=== PATIENT | female | born 1970 ===

== ENCOUNTER 2020-09-21 10:35 | Outpatient (REF) | payer OTHER, SELFPAY | END 2020-09-21 10:36 | disposition home or self-care (01) | LOC: HO.LAB 10:35 | PROVIDERS: PCP Internal Medicine; Visit Provider Internal Medicine | DX: Z20.828 Contact with and (suspected) exposure to other viral communicable diseases (principal) | CPT/HCPCS: C9803; U0003 ==

== ENCOUNTER 2020-11-01 14:37 | Outpatient (REF) | payer OTHER, SELFPAY ==
[2020-11-01 17:38] LABS: Free T4 (Free Thyroxine) 1.33 ng/dL (0.71-1.85); Thyroid Stimulating Hormone 1.17 uIU/mL (0.32-4.0)
== END 2020-11-01 14:38 | disposition home or self-care (01) ==
LOC: HO.HMGCLDS 14:37
PROVIDERS: PCP Internal Medicine; Visit Provider Internal Medicine Endocrinology, Diabetes & Metabolism
DX: E03.9 Hypothyroidism, unspecified (principal)
CPT/HCPCS: 36415; 84439; 84443

== ENCOUNTER 2020-11-28 13:51 | Outpatient (REF) | payer OTHER, SELFPAY ==
[2020-11-29 01:22] LABS: Lyme Abs Screen <0.90 index
== END 2020-11-28 13:52 | disposition home or self-care (01) ==
LOC: HO.HMGCLDS 13:51
PROVIDERS: Nurse Practitioner Family; PCP Internal Medicine; Visit Provider Hospitalist
DX: S30.861A Insect bite (nonvenomous) of abdominal wall, initial encounter (principal); W57.XXXA Bitten or stung by nonvenomous insect and other nonvenomous arthropods, initial encounter; Y93.9 Activity, unspecified; Y92.9 Unspecified place or not applicable; Y99.9 Unspecified external cause status
CPT/HCPCS: 36415; 86618

== ENCOUNTER → 2021-01-19 16:13 | Outpatient (BNVA) | payer OTHER, SELFPAY | PROVIDERS: PCP Internal Medicine; Visit Provider Nurse Practitioner ==

== ENCOUNTER 2021-03-22 07:51 | Outpatient (REF) | payer OTHER, SELFPAY ==
--- NOTE | ~2021-03-22 | US_ITS ---
EXAMINATION: US COMPLETE ABDOMEN WITH LIVER ELASTOGRAPHY CLINICAL INFORMATION: Abnormal blood chemistry. COMPARISON: CT abdomen and pelvis with contrast 02/20/2016. TECHNIQUE: Real-time imaging of the abdominal viscera. Noninvasive ultrasound liver fibrosis assessment is performed using Olivier ElastPQ point quantification shear wave elastography (pSWE) with a C5-2 MHz transducer. Multiple elastography samples are obtained. FINDINGS: PANCREAS: Normal. The visualized pancreatic head and body are normal in appearance. The remainder of the pancreas is obscured from visualization by the overlying bowel gas. ABDOMINAL AORTA: The proximal, middle, and distal aortic segments are normal in caliber. INFERIOR VENA CAVA: Visualized portions are normal. LIVER: The liver demonstrates normal size, contour and echogenicity. There is diffuse increased echogenicity of the liver. There are multiple hypodense liver cysts. The largest cyst in left hepatic lobe with septations measures 1. 4.1 x 2.0 x 3.7 cm. There is no hemangioma seen on today's ultrasound. The right lobe measures 1.54 cm in length. The left lobe measures 0.08 cm in length. Portal flow is hepatopedal. Shear wave liver elastography median stiffness is 1.5 m/s (reference: normal median stiffness is 1.3 m/s or less). IQR/median stiffness to assess sampling precision is 0.08 (reference: good quality data set is IQR/median stiffness of 0.15 or less). GALLBLADDER: Gallbladder wall thickness is 0.1 cm. The gallbladder is physiologically distended without evidence of stones, sludge, polyps, wall thickening or pericholecystic fluid. COMMON BILE DUCT: Normal in caliber measuring 0.3 cm in diameter. RIGHT KIDNEY: There is mild pelvic fullness but no hydronephrosis seen. No renal calculi or focal parenchymal lesions. The kidney measures 10.4 cm in maximum dimension. LEFT KIDNEY: Normal. No hydronephrosis. No renal calculi or focal parenchymal lesions. The kidney measures 11.3 cm in maximum dimension. SPLEEN: Normal. The spleen measures 10.0 cm in maximum dimension. FREE FLUID: None. US/US abdomen comp w elastography IMPRESSION: 1. Diffuse hepatic steatosis. There are multiple anechoic cysts. The largest cyst in the left hepatic lobe has septations and is complex. No solid lesion or hemangioma seen. Mild pelvic fullness right kidney but no hydronephrosis or echogenic renal calculi in either kidney. 2. Liver elastography: 1.54. Findings suggestive of cACLD ruled out. REFERENCE: Society of Radiologists in Ultrasound Liver Stiffness Thresholds (2020): LIVER STIFFNESS THRESHOLDS: *Liver Stiffness equal or less than 1.3 m/s: High probability of being normal. *Liver Stiffness less than 1.7 m/s: In the absence of other known clinical signs, rules out compensated advanced chronic liver disease. *Liver Stiffness 1.7-2.1 m/s: Suggestive of compensated advanced chronic liver disease but need further test for confirmation. *Liver Stiffness over 2.1 m/s: Rules in compensated advanced chronic liver disease. *Liver Stiffness over 2.4 m/s: Suggestive of clinically significant portal hypertension. QUALITY OF DATA SET: *IQR/Median value equal or less than 0.15 implies a quality data set. *IQR/Median value over 0.15 implies a poor quality data set. SIGNIFICANT CHANGE FROM PRIOR EXAM: Significant change if liver stiffness measurement is 10% or greater from prior exam. OTHER CONSIDERATIONS: The stage of liver fibrosis may be overestimated in the setting of acute hepatitis, liver inflammation, elevated liver function tests, hepatic vascular congestion, obstructive cholestasis, non-fasting state, and infiltrative diseases such as amyloidosis and lymphoma. In some patients with NAFLD, the liver stiffness thresholds for compensated advanced chronic liver disease may be lower. In causes other than viral hepatitis and NAFLD, liver stiffness thresholds are not well established.
[2021-03-22 08:48] LABS: MANUAL DIFF FLAG NO
[2021-03-22 08:55] LABS: Eosinophils Absolute Auto 0.1 X10*3/uL (0.0-0.4); Eosinophils Percent Auto 2.6 % (0-4); Hematocrit 39.6 % (37-47); Hemoglobin 13.6 g/dl (12.0-16.0); Imm Gran Abs Auto 0.02 X10*3/uL (0.00-0.03); Imm Gran Pct Auto 0.4 % (0.0-0.4); Lymphocytes Absolute Auto 1.4 X10*3/uL (1.2-4.9); Lymphocytes Percent Auto 28.1 % (20-40); Mean Corpuscular HGB Conc 34.3 g/dl (31.0-35.0); Mean Corpuscular Hemoglobin 30.7 pg (27.0-33.0); Mean Corpuscular Volume 89.4 fL (80-98); Mean Platelet Volume 10.7 fL (9.4-12.3); Monocytes Absolute Auto 0.3 X10*3/uL (0.1-1.2); Monocytes Percent Auto 6.8 % (2-11); Neutrophils Absolute Auto 3.1 X10*3/uL (2.0-8.3); Neutrophils Percent Auto 62.1 % (45-73); Platelet Count 228 X10*3/uL (160-400); Red Blood Count 4.43 X10*6/uL (4.20-5.50); Red Cell Distribution Width 11.6 % (11.0-16.0)
[2021-03-22 09:33] LABS: Alanine Aminotransferase 26 U/L (0-31); Albumin Level 4.4 g/dL (3.5-5.0); Alkaline Phosphatase 89 U/L (39-117); Anion Gap 9 (12-20); Aspartate Amino Transferase 27 U/L (5-31); Bilirubin Direct 0.3 mg/dL (0.0-0.5); Bilirubin Total 0.8 mg/dL (0.0-1.0); Blood Urea Nitrogen 10 mg/dL (9-16); Calcium 10.1 mg/dL (8.4-10.2); Carbon Dioxide 30 mmol/L (22-29); Chloride 104 mmol/L (96-108); Estimated Glomerular Filt Rate > 60; Gamma Glutamyl Transpeptidase 23 U/L (7-33); Glucose Random 92 mg/dL (60-115); Potassium 4.4 mmol/L (3.3-5.1); Sodium 139 mmol/L (135-145); Total Protein 7.4 g/dL (6.5-8.0)
[2021-03-22 09:46] LABS: HBS Num1 0.21 mIU/mL (0-7.99); HIV AB/AG Nonreactive (Nonreactive); HIV Num 1 0.07 S/CO (0.00-0.99); Hepatitis A Antibody IgM 0.32 Index (0-0.79); ~Hepatitis A Antibody IgM Nonreactive (Nonreactive); ~Hepatitis B Surface Antibody NONREACTIVE (Nonreactive)
[2021-03-22 09:48] LABS: Ferritin 110 ng/mL (10-250)
[2021-03-22 10:29] LABS: HBc Num1 0.07 S/CO (0.00-0.79); HBsAGNum1 0.19 S/CO (0.00-0.99); Hepatitis B Core Antibody Nonreactive (Nonreactive); Hepatitis B Surface Antigen Negative (Negative); ~HepC Num1 0.08 S/CO (0.00-0.79); ~Hepatitis C Antibody Nonreactive (Nonreactive)
[2021-03-23 11:57] LABS: Alpha Fetoprotein 1.7 ng/mL
[2021-03-26 23:46] LABS: Anti Nuclear Antibody Screen NEGATIVE (NEGATIVE)
[2021-03-27 15:52] LABS: Mitochondrial Antibodies NEGATIVE (NEGATIVE)
[2021-03-27 22:22] LABS: Smooth Muscle Antibody 20 U (<20)
== END 2021-03-22 07:52 | disposition home or self-care (01) ==
LOC: HO.US 07:51
PROVIDERS: Visit Provider Nurse Practitioner
DX: K75.81 Nonalcoholic steatohepatitis (NASH) (principal); R79.89 Other specified abnormal findings of blood chemistry; K58.9 Irritable bowel syndrome, unspecified; K21.9 Gastro-esophageal reflux disease without esophagitis
CPT/HCPCS: 36415; 76705; 76981; 80053; 82105; 82248; 82728; 82977; 85025; 86038; 86039; 86255; 86256; 86704; 86706; 86709; 86803; 87340; 87389

== ENCOUNTER 2021-05-02 16:52 | Outpatient (REF) | payer OTHER, SELFPAY ==
[2021-05-02 18:42] LABS: Free T4 (Free Thyroxine) 1.33 ng/dL (0.71-1.85); Thyroid Stimulating Hormone 0.91 uIU/mL (0.32-4.0)
== END 2021-05-02 16:53 | disposition home or self-care (01) ==
LOC: HO.LAB 16:52
PROVIDERS: PCP Internal Medicine; Visit Provider Internal Medicine Endocrinology, Diabetes & Metabolism
DX: E03.9 Hypothyroidism, unspecified (principal)
CPT/HCPCS: 36415; 84439; 84443

== ENCOUNTER → 2021-05-03 10:17 | Outpatient (BNVA) | payer OTHER, SELFPAY | PROVIDERS: PCP Internal Medicine; Visit Provider Internal Medicine Endocrinology, Diabetes & Metabolism ==

== ENCOUNTER → 2021-05-09 13:50 | Outpatient (BNVA) | payer OTHER, SELFPAY | PROVIDERS: PCP Internal Medicine; Visit Provider Nurse Practitioner ==

== ENCOUNTER 2021-09-23 10:44 | Outpatient (REF) | payer OTHER, SELFPAY ==
[2021-09-23 12:17] LABS: Free T4 (Free Thyroxine) 1.11 ng/dL (0.71-1.85); Thyroid Stimulating Hormone 1.09 uIU/mL (0.32-4.0)
[2021-09-24 07:27] LABS: Triiodothyronine T3 Free 3.1 pg/mL (2.3-4.2)
== END 2021-09-23 10:45 | disposition home or self-care (01) ==
LOC: HO.LAB 10:44
PROVIDERS: PCP Internal Medicine; Visit Provider Family Medicine
DX: E03.8 Other specified hypothyroidism (principal)
CPT/HCPCS: 36415; 84439; 84443; 84481

== ENCOUNTER 2021-11-25 10:49 | Outpatient (REF) | payer OTHER, SELFPAY ==
[2021-11-25 11:53] LABS: Alanine Aminotransferase 17 U/L (0-31); Aspartate Amino Transferase 22 U/L (5-31); Cholesterol 186 mg/dL; HDL Cholesterol 69 mg/dL; LDL Cholesterol Calculated 109 mg/dl; Triglycerides 42 mg/dL
[2021-11-25 12:15] LABS: Vitamin D 25-OH Total 28.8 ng/mL (>30)
[2021-11-27 01:07] LABS: LDL Cholesterol Direct 99 mg/dL (<100)
== END 2021-11-25 10:50 | disposition home or self-care (01) ==
LOC: HO.LAB 10:49
PROVIDERS: PCP Internal Medicine; Visit Provider Family Medicine
DX: K76.0 Fatty (change of) liver, not elsewhere classified (principal); E03.9 Hypothyroidism, unspecified; N95.1 Menopausal and female climacteric states
CPT/HCPCS: 36415; 80061; 82306; 83721; 84450; 84460; 86141

== ENCOUNTER 2022-03-02 07:09 | Outpatient (REF) | payer OTHER, SELFPAY ==
[2022-03-02 08:06] LABS: Alanine Aminotransferase 18 U/L (0-31); Albumin Level 4.5 g/dL (3.5-5.0); Alkaline Phosphatase 110 U/L (39-117); Anion Gap 10 (12-20); Aspartate Amino Transferase 19 U/L (5-31); Bilirubin Total 1.5 mg/dL (0.0-1.0); Blood Urea Nitrogen 17 mg/dL (9-16); Calcium 10.3 mg/dL (8.4-10.2); Carbon Dioxide 30 mmol/L (22-29); Chloride 104 mmol/L (96-108); Cholesterol 206 mg/dL; Estimated Glomerular Filt Rate > 60; Glucose Random 96 mg/dL (60-115); HDL Cholesterol 76 mg/dL; LDL Cholesterol Calculated 115 mg/dl; Potassium 4.6 mmol/L (3.3-5.1); Sodium 139 mmol/L (135-145); Total Protein 7.6 g/dL (6.5-8.0); Triglycerides 78 mg/dL
[2022-03-03 14:46] LABS: CRP High Sensitivity 1.3 mg/L
== END 2022-03-02 07:10 | disposition home or self-care (01) ==
LOC: HO.LAB 07:09
PROVIDERS: PCP Internal Medicine; Visit Provider Family Medicine
DX: K76.0 Fatty (change of) liver, not elsewhere classified (principal)
CPT/HCPCS: 36415; 80053; 80061; 86141

== ENCOUNTER 2022-09-19 07:59 | Outpatient (REF) | payer OTHER, SELFPAY ==
[2022-09-19 12:48] LABS: Alanine Aminotransferase 20 U/L (0-31); Albumin Level 4.4 g/dL (3.5-5.0); Alkaline Phosphatase 98 U/L (39-117); Aspartate Amino Transferase 20 U/L (5-31); Bilirubin Direct 0.4 mg/dL (0.0-0.5); Bilirubin Total 1.1 mg/dL (0.0-1.0); Free T4 (Free Thyroxine) 1.15 ng/dL (0.71-1.85); Glucose Fasting 84 mg/dL (60-99); Thyroid Stimulating Hormone 1.19 uIU/mL (0.32-4.0); Total Protein 6.9 g/dL (6.5-8.0); Vitamin D 25-OH Total 28.3 ng/mL (>30)
[2022-09-20 09:43] LABS: Thyroid Peroxidase Antibodies 1 IU/mL (<9)
== END 2022-09-19 08:00 | disposition home or self-care (01) ==
LOC: HO.HMGCLDS 07:59
PROVIDERS: PCP Internal Medicine; Visit Provider Internal Medicine
DX: Z00.01 Encounter for general adult medical examination with abnormal findings (principal); E03.9 Hypothyroidism, unspecified; G47.00 Insomnia, unspecified; K58.2 Mixed irritable bowel syndrome; K75.81 Nonalcoholic steatohepatitis (NASH); N95.1 Menopausal and female climacteric states; R10.11 Right upper quadrant pain
CPT/HCPCS: 36415; 80076; 82306; 82947; 84439; 84443; 86376

== ENCOUNTER 2023-07-05 12:47 | Outpatient (AMB) | payer OTHER, SELFPAY ==
--- NOTE | 2023-07-05 12:53 | A.OFFPC_ITS ---
Vital Signs 07/05/23 12:57 Height 5 ft 1 in Weight 143 lb BMI 27.0 BP 130/70 Blood Pressure Location Rt brachial Position Sitting Pulse 71 Pulse Source Pulse Oximeter Pulse Oximetry (%) 99 Oxygen Delivery Method Room Air Intake Visit Reasons: Liver/Thyroid F/U Intake Note: patient is here to discuss liver/thyroid f/u and pt c/o lower abdominal pain Allergies No Known Allergies Allergy (Verified 02/14/24 09:31) Medication List - Last Reconciled 07/05/23 by Jahaira Cabrera MD azelaic acid 15% 1 appl topical BID doxycycline monohydrate 0 mg PO Levoxyl (levothyroxine) 100 mcg PO DAILY 90 days NS lifitegrast 5% (Xiidra) 1 drp ophthalmic (eye) BID lorazepam 0.5 mg PO DAILY PRN zolpidem 10 mg PO BEDTIME PRN Tobacco use date assessed: 07/05/23 Dental Screening Dental Screen Date: 07/05/23 Did you have a dental visit in the last 12 months?: Yes Did you have a dental problem in the last 6 months where you did not have access to dental care?: No Was dental information given to patient?: Patient has dentist HPI Liver/Thyroid F/U HPI Details 54-year-old lady with history acquired h ypothyroidism currently on levothyroxine, here today for follow-up. She has been having intermittent episodes of right upper quadrant pain. No relation to food intake, no radiation, no accompanying fever, no nausea vomiting, no change in bowel habits reported. She also has been having intermittent episodes of difficulty sleeping and maintaining her sleep at night. Has tried debe-pda-lvwammk sleep aids which has not afforded any relief PFSH Medical History (Updated 05/12/24 @ 02:03 by Jahaira Cabrera MD) Right upper quadrant abdominal pain COVID-19 vaccination declined Refused influenza vaccine Annual visit for general adult medical examination with abnormal findings H. 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 [id number] - PHQ-9 Billing: Patient declined-do not bill Source: Developed by Drs. Harvey Ortiz, Viviana Samaniego, Conrad Mccartney and colleagues, with an educational kit from [employer]. Thrive Questionnaire Date Thrive assessed: 09/12/22 I am a: Patient What is your living situation today?: I have a steady place to live Within the past 12 months, did the food you bought not last and you didn't have the money to get more?: Never true Within the past 12 months, did you worry whether your food would run out before you got money to buy more?: Sometimes True Do you have trouble paying for medicines?: No Do you have trouble getting transportation to medical appointments?: No Do you have trouble paying your heating and electricity bill?: No Do you have trouble taking care of your child, family member or friend?: No Do you have trouble with day-to-day activities such as bathing, preparing meals, shopping, managing finances, etc.?: No Are you currently unemployed and looking for a job?: No Are you interested in more education?: No Please select the resources that you would like help with: Education AUDIT C Alcohol Use Questionnaire (AUDIT-C) 1. How often do you have a drink containing alcohol?: 2-3 times a week 2. How many drinks containing alcohol do you have on a typical day when you are drinking?: 1 or 2 3. How often do you have six or more drinks on one occasion?: Less than monthly Total Score: 4 JAKE-7 AMB Questionnaire JAKE-7 Date JAKE - 7 assessed: 07/05/23 Feeling nervous, anxious, or on edge: 3 = Nearly every day Not being able to stop or control worryin = Nearly every day Worrying too much about different things: 3 = Nearly every day Trouble relaxin = Nearly every day Being so restless that it is hard to sit still: 1 = Several days Becoming easily annoyed or irritable: 3 = Nearly every day Feeling afraid as if something awful might happen: 3 = Nearly every day Total JAKE-7 score (0-4 normal; 5-9 mild; 10-14 moderate; 15-21 severe): 19 Source: Developed by Drs. Harvey Ortiz, Viviana Samaniego, Conrad Mccartney and colleagues, with an educational kit from [employer]. JAKE-7 Assessment Billing JAKE-7 Assessment Tool: JAKE-7 Assessment 21400 (Sees a therapist, awaiting referral for psychiatry) Review of Systems Const Denies body aches, Denies fatigue, Denies fever(s), Denies headache(s) and Denies weakness ENT Denies dizziness and Denies headache(s) Card Denies chest pain, Denies lightheadedness, Denies palpitations and Denies dyspnea Resp Denies chest congestion, Denies cough and Denies dyspnea GI Reports as per HPI Denies urinary frequency, Denies dysuria and Denies urinary urgency Musc Reports no additional complaints Neuro Denies dizziness, Denies headache(s) and Denies weakness Endo Denies fatigue, Denies polydipsia, Denies polyuria and Denies palpitations Physical exam (Primary Care) Vital Signs: Last Vital Signs Pulse 71 07/05/23 12:57 BP 130/70 07/05/23 12:57 Pulse Ox 99 07/05/23 12:57 Oxygen Delivery Method Room Air 07/05/23 12:57 BMI result Body Mass Index 27.0 Tobacco/Smoking Status: Tobacco use Status Tobacco use date assessed 07/05/23 07/05/23 13:12 Patient Tobacco Use Status Never used Tobacco 07/05/23 12:53 e-Cigarette/Vaping Use Never Used 07/05/23 12:53 Thrive Assessment: Date of Thrive Assessment Date Thrive assessed 09/12/22 07/05/23 12:53 Const Other: Alert oriented x3, no acute cardiorespiratory distress, ambulatory with normal gait Nutritional Appearance: average body habitus Orientation/consciousness: patient oriented x3 HENMT Face and sinus: Yes face symmetric Mouth: Normal oral and palatal mucosa present and moist mucous membranes Eyes General: appearance normal, both eyes and all related structures Neck Neck: Yes full ROM, Yes no lymphadenopathy, Yes supple and Yes no JVD Resp Auscultation: clear to auscultation bilaterally Cardio Palpation: normal PMI Rate: regular rate Rhythm: regular rhythm Heart sounds: S1 normal heart sound present and S2 normal heart sound present GI Palpation (GI): Soft to palpation, nontender, no guarding and no masses Auscultation: normal bowel sounds Other: Goes to her own OBGYN Dr. Dixie Grant, who also orders her mammogram and does her cervical cancer screening General: Yes no CVA tenderness Back/Spine/Pelvis Back: no CVA tenderness and No back tenderness Neuro General: patient oriented x3, gait normal and no focal motor deficits Extrem General: Yes normal to inspection, Yes full ROM, Yes no joint enlargement, Yes no pedal edema, Yes no calf tenderness and Yes normal gait Assessment and Plan Assessment & Plan (1) Right upper quadrant abdominal pain: Code(s): R10.11 - Right upper quadrant pain Plan: Ultrasound of abdomen, ordered as well as liver function tests (2) Insomnia: Code(s): G47.00 - Insomnia, unspecified Qualifiers: Insomnia type: unspecified Qualified Code(s): G47.00 - Insomnia, unspecified Plan: Prescription sent for zolpidem, to try taking initially 5 mg or half a tablet at bedtime as needed for insomnia and may increase dose to a whole tablet or 10 mg if needed. Patient advised to take it only as needed, as it can be habit- forming (3) Acquired hypothyroidism: Code(s): E03.9 - Hypothyroidism, unspecified Plan: TSH and free T4 ordered will continue on levothyroxine at 100 mcg daily in a.m. an hour before breakfast Orders: Orders Free T4 (Free Thyroxine) 3 Months E03.9 - Hypothyroidism, unspecified, R10.11 - Right upper quadrant pain, R79.89 - Other specified abnormal findings of blood chemistry, K76.89 - Other specified diseases of liver, K75.81 - Nonalcoholic steatohepatitis (CARR) Lipid Panel 07/05/23 R10.11 - Right upper quadrant pain, R79.89 - Other specified abnormal findings of blood chemistry, K75.81 - Nonalcoholic steatohepatitis (CARR) Thyroid Stimulating Hormone 07/05/23 R10.11 - Right upper quadrant pain, R79.89 - Other specified abnormal findings of blood chemistry, K76.89 - Other specified diseases of liver, K75.81 - Nonalcoholic steatohepatitis (CARR) US abdomen complete 07/05/23 R10.11 - Right upper quadrant pain, R79.89 - Other specified abnormal findings of blood chemistry, K76.89 - Other specified diseases of liver, K75.81 - Nonalcoholic steatohepatitis (CARR) Liver Panel 07/05/23 R10.11 - Right upper quadrant pain, R79.89 - Other specified abnormal findings of blood chemistry, K75.81 - Nonalcoholic steatohepatitis (CARR) Medications: Refilled zolpidem Try taking initially half a tablet or 5 mg at bedtime , as needed for insomnia 10 mg PO BEDTIME PRN 30 tabs 0RF sleep G47.00 - Insomnia, unspecified Coding Level of Care Code Est Pt Level 4 (09447) Diagnoses Right upper quadrant abdominal pain R10.11 Insomnia, unspecified type G47.00 Insomnia type: unspecified Acquired hypothyroidism E03.9 Additional Codes JAKE-7 Assessment Billing - JAKE-7 Assessment Tool: JAKE-7 Assessment 10962 ([id number])
[2023-07-05 12:57] VITALS: BP 130/70; PULSE 71; O2SAT 99; BMI 27.0
== END 2023-07-05 15:40 | disposition home or self-care (01) ==
PROVIDERS: PCP Internal Medicine; Visit Provider Internal Medicine
DX: R10.11 Right upper quadrant pain (principal); G47.00 Insomnia, unspecified; E03.9 Hypothyroidism, unspecified
CPT/HCPCS: 99499

== ENCOUNTER 2023-07-15 08:02 | Outpatient (REF) | payer OTHER, SELFPAY ==
[2023-07-15 12:35] LABS: Alanine Aminotransferase 30 U/L (0-31); Albumin Level 4.4 g/dL (3.5-5.0); Alkaline Phosphatase 94 U/L (39-117); Aspartate Amino Transferase 28 U/L (5-31); Bilirubin Direct 0.4 mg/dL (0.0-0.5); Bilirubin Total 1.2 mg/dL (0.0-1.0); Cholesterol 177 mg/dL (<200); HDL Cholesterol 64 mg/dL (>40); LDL Cholesterol Calculated 99 mg/dL (<100); Thyroid Stimulating Hormone 2.15 uIU/mL (0.32-4.0); Total Protein 7.4 g/dL (6.5-8.0); Triglycerides 70 mg/dL (<150)
== END 2023-07-15 08:03 | disposition home or self-care (01) ==
LOC: HO.HMGCLDS 08:02
PROVIDERS: PCP Internal Medicine; Visit Provider Internal Medicine
DX: R10.11 Right upper quadrant pain (principal); K75.81 Nonalcoholic steatohepatitis (NASH); K76.89 Other specified diseases of liver; R79.89 Other specified abnormal findings of blood chemistry
CPT/HCPCS: 36415; 80061; 80076; 84443

== ENCOUNTER 2023-07-24 10:13 | Outpatient (REF) | payer OTHER, SELFPAY ==
--- NOTE | ~2023-07-24 | US_ITS ---
EXAMINATION: US ABDOMEN COMPLETE CLINICAL INFORMATION: Right upper quadrant pain. COMPARISON: Ultrasound abdomen complete with elastography 03/22/2021. CT abdomen and pelvis 02/20/2016. X-ray abdomen 06/20/2014. TECHNIQUE: Real-time imaging of the abdominal viscera. FINDINGS: PANCREAS: Normal. ABDOMINAL AORTA: The proximal, mid, and distal segments are normal in caliber. INFERIOR VENA CAVA: Visualized portions are normal. LIVER: Liver is enlarged with multiple hepatic cysts and increased echogenicity the largest cyst in the left lobe measured 4.5 x 2.4 x 4.8 cm. The liver contour is normal. There is no intrahepatic biliary duct dilatation seen. GALLBLADDER: Gallbladder is contracted COMMON BILE DUCT: Normal in caliber measuring 0.4 cm in diameter. RIGHT KIDNEY: Normal. No hydronephrosis. No renal calculi or focal parenchymal lesions. The kidney measures 10.5 cm in maximum dimension. LEFT KIDNEY: Normal. No hydronephrosis. No renal calculi or focal parenchymal lesions. The kidney measures 11.0 cm in maximum dimension. SPLEEN: Normal. The spleen measures 9.9 cm in maximum dimension. There is 1.0 x 1.0 x 1.1 cm splenule seen FREE FLUID: None. US/US abdomen complete IMPRESSION: Echogenic liver with multiple simple cysts. Contracted gallbladder patient was not fasting.
== END 2023-07-24 10:14 | disposition home or self-care (01) ==
LOC: HO.HMGCX 10:13
PROVIDERS: PCP Internal Medicine; Visit Provider Internal Medicine
DX: R10.11 Right upper quadrant pain (principal); R79.89 Other specified abnormal findings of blood chemistry; K76.89 Other specified diseases of liver
CPT/HCPCS: 76700

== ENCOUNTER 2023-11-22 12:19 | Outpatient (AMB) | payer OTHER, SELFPAY ==
--- NOTE | 2023-11-22 12:28 | A.OFFVIS_ITS ---
Intake Vital Signs 11/22/23 12:29 Height 5 ft 1 in Weight 145 lb BMI 27.4 BP 120/73 Blood Pressure Location Lt brachial Position Sitting Pulse 81 Intake Visit Reasons: Follow up GERD Intake Note: Patient follow up for GERD and US results Patient cc: abdominal pain with bloating and discomfort, constipation, some swallowing problems. 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 Accompanied by: Self / Same As Patient Allergies No Known Allergies Allergy (Verified 11/22/23 12:28) HPI Follow up GERD HPI Details Assessment & Plan (1) CARR (nonalcoholic steatohepatitis): ?Comment: Laboratory Tests ?03/22/2106/06/2106 ?[id number] Plt Count 228 Estimated GFR > 60 Ferritin 110 Total Bilirubin 0.8 Direct Bilirubin 0.3 GGT 23 AST 27 ALT 26 Alkaline Phosphatase 89 Alpha Fetoprotein 1.7 FITO Screen NEGATIVE Anti-Mitochondrial Ab NEGATIVE Anti-Smooth Muscle Ab 20 H Hepatitis A IgM Ab Nonreactive Hep Bs Antigen Negative Hep Bs Antibody NONREACTIVE Hep B Core Total Ab Nonreactive Hepatitis C Ab (EIA) Nonreactive HIV 1&2 Ab/P24 Ag 4thGn Nonreactive TSH 0.91 Free T4 1.3 ULTRASOUND OF THE ABDOMEN ELASTOGRAPHY 03/2021 IMPRESSION: 1. Diffuse hepatic steatosis. There are multiple anechoic cysts. The largest cyst in the left hepatic lobe has septations and is complex. No solid lesion or hemangioma seen. ? Mild pelvic fullness right kidney but no hydronephrosis or echogenic renal calculi in either kidney. ? 2. Liver elastography: 1.54. Findings cuevas ggestive of cACLD ruled out. ? Dictated By:EARL LAM MDSigned By:<Electronically signed by EARL LAM MD in OV>03/22/21 ?Code(s): K75.81 - Nonalcoholic steatohepatitis (CARR) ?Plan - SAEED Gabriel-C: wt 136# 5'1 BMI 25.7 I reviewed all of the results from the testing and ultrasound inform her that it appears that this is CARR or fatty liver.? I explained that this is an inherited condition and the only real treatment is slow weight loss weight control, avoidance of toxins particularly alcohol and blood sugar control if your diabetic.? She says she is currently not diabetic. She does drink 1 glass of red wine a night.? I counseled her to try to cut this back to 2 or 3 times a week since it is well-known that does with regular alcohol consumption and fatty liver have a greater chance of progressing to liver disease than those done.? I also a.m. trying to cushion the fact that she may be under reporting as most people do with the alcohol intake.? She does understand. She expresses a lot of worries as her father of cirrhosis she also watch friend of cirrhosis.? Both of them drank alcohol so this is a good case end point.? She asks whether she can take any mzng-ins-zxpwgvg medications like vitamins to treat this and I discussed the role of vitamin-E but say I have mixed use on this as it is a fat soluble vitamin that can cause toxicity in high doses and the clinical studies of its efficacy are very unclear.? There may be role for something like milk thistle or DANIEL-E, as this has proved proved benefits to the liver.? She should check with me however before beginning any herbal supplement as there are some dinner out right harmful to the liver such as Kava. She she understands and is able to repeat verbalize well.? I tried to reassure her that she does not have a lot of damage to her liver and if she follows the s imple recommendations she really should be fine.? We will monitor her at 6 month intervals to be sure there is no concerning progression. RO the 6 months (2) Elevated LFTs: ?Code(s): R79.89 - Other specified abnormal findings of blood chemistry US OF THE ABDOMEN 07/25/23 FINDINGS: PANCREAS: Normal. ABDOMINAL AORTA: The proximal, mid, and distal segments are normal in caliber. INFERIOR VENA CAVA: Visualized portions are normal. LIVER: Liver is enlarged with multiple hepatic cysts and increased echogenicity the largest cyst in the left lobe measured 4.5 x 2.4 x 4.8 cm. The liver contour is normal. There is no intrahepatic biliary duct dilatation seen. GALLBLADDER: Gallbladder is contracted COMMON BILE DUCT: Normal in caliber measuring 0.4 cm in diameter. RIGHT KIDNEY: Normal. No hydronephrosis. No renal calculi or focal parenchymal lesions. The kidney measures 10.5 cm in maximum dimension. LEFT KIDNEY: Normal. No hydronephrosis. No renal calculi or focal parenchymal lesions. The kidney measures 11.0 cm in maximum dimension. SPLEEN: Normal. The spleen measures 9.9 cm in maximum dimension. There is 1.0 x 1.0 x 1.1 cm splenule seen FREE FLUID: None. US/US abdomen complete IMPRESSION: Echogenic liver with multiple simple cysts. Contracted gallbladder patient was not fasting. Laboratory Tests 07/15/23 08:07 Total Bilirubin 1.2 H Direct Bilirubin 0.4 AST 28 ALT 30 Alkaline Phosphata se 94 TSH 2.15 TODAY'S VISIT She is currently not taking any GI medications. She has been lost to follow up since 2020. She has been having diarrhea alt with CIC, whens he has diarrhea she will have fecal urgency and incontinence. She is fearful to travel. YET she says that she has more CIC and will have to take dulcolax. When she has the bad constipation cycle she will then try to get more fiber in her diet and will water and then she will start going more frequently; however this will perpetuate her into her cycle of severe diarrhea as above. She will also take N-acetylcysteine, lemon balm, Vit D and probiotics. Specifically, she has not taking any magnesium supplements. She does not feel that is Dulcolax puts her into a diarrheal phase as she will it will clean her out and then she will be normal for awhile before the diarrheal phase onsets. Her mother suffers from diarrhea as well and gastritis. Will also start her back on a trial of Creon to see if this is helpful. She needs hemorrhoid cream as these have been bad. Will restart creon, get labs and fecal studies, and consider balloon expulsion study as she feels there is something wrong with her rectal muscles. [facility] Medical History (Updated 07/05/23 @ 13:59 by Jahaira Cabrera MD) Benign liver cyst Urinary incontinence Anxiety COVID-19 vaccination declined Refused influenza vaccine Right upper quadrant abdominal pain Annual visit for general adult medical examination with abnormal findings Acne rosacea Acquired hypothyroidism Insomnia Surgical History Hernia History of breast augmentation History of tubal ligation Family History Father Liver cancer Mother HTN (hypertension) Diabetes mellitus Social History Housing: House Alcohol intake: current Alcohol intake frequency: 0-2 drinks per day Alcohol type: wine Patient Tobacco Use Status: Never used Tobacco e-Cigarette/Vaping Use: Never Used Second Hand Smoke Exposure: No service: No Current occupational status: employed 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 Cognitive needs: No Hearing needs: No Vision needs: Yes Review of Systems Const Denies fatigue, Denies fever(s), Denies night sweats, Denies poor appetite and Denies weight loss ENT Reports Normal hearing present, Denies dental pain, Denies dysphagia, Denies hearing loss, Denies mouth pain, Denies odynophagia, Denies throat swelling, Denies tongue swelling and Reports other (Dentition adequate) Card Reports no additional complaints Resp Reports no additional complaints GI Details: Denies abdominal pain, Denies melena, Reports bloating, Reports hematochezia, Reports constipation, Denies GI cramping, Denies dysphagia, Denies excessive flatus, Denies early satiety, Reports heartburn, Reports diarrhea, Denies nausea, Denies odynophagia, Denies vomiting and Denies hematemesis Skin/Breast Denies pruritus, Denies lesions, Denies rash and Denies jaundice Neuro Reports Normal hearing present and Denies Abnormal speech present Endo Denies fatigue Aller/Immun Denies throat swelling and Denies tongue swelling Physical Exam Vital Signs: Last Vital Signs Pulse 81 11/22/23 12:29 BP 120/73 11/22/23 12:29 BMI result Body Mass Index 27.4 Const General: cooperative, no acute distress, well developed and well groomed Nutritional Appearance: average body habitus and well nourished Orientation/consciousness: oriented to person, oriented to place and oriented to time Limitations: No language barrier HEENT Head: Yes normocephalic and Yes atraumatic Eyes General: appearance normal, both eyes and all related structures Pupils: Equal, round and reactive pupils present Neck Neck: Yes normal visual inspection and Yes no lymphadenopathy Thyroid: Thyroid normal Resp Effort & Inspection: normal respiratory effort and able to speak in complete sentences Auscultation: clear to auscultation bilaterally Cardio Rate: regular rate Rhythm: regular rhythm Heart sounds: Normal, physiologic split S2 sound present Peripheral pulses: radial pulses present and posterior tibial pulses present GI Inspection: No distended and No Abdominal panniculus present Palpation (GI): Soft to palpation, nontender, no guarding, not rigid and No hepatosplenomegaly present Percussion: Yes normal to percussion Auscultation: normal bowel sounds Rectal Exam - Female: deferred Skin General skin exam: no rashes or lesions noted, turgor normal, skin not dry, no jaundice, No spider nevi and no striae Rashes: no rashes Nails: normal Neuro General: oriented to person, oriented to place and oriented to time Cranial nerves: Yes Equal, round and reactive pupils present and Yes Normal hearing present Speech: No Abnormal speech present Extrem General: Yes normal to inspection, No clubbing, No cyanosis and No edema Psych Appearance: grossly normal and well kempt Mental Status: mental status grossly normal Speech and movement: Normal speech and movement present Affect: normal affect Attitude: cooperative Thought process: Normal thought process present and not confabulating Thought content: Normal thought content present Insight: Limited insight present (Psych) Judgement: Limited judgement present (Psych) Assessment & Plan Assessment & Plan (1) CARR (nonalcoholic steatohepatitis): Comment: Laboratory Tests 03/22/2106/06/2106 [id number] Plt Count 228 Estimated GFR > 60 Ferritin 110 Total Bilirubin 0.8 Direct Bilirubin 0.3 GGT 23 AST 27 ALT 26 Alkaline Phosphatase 89 Alpha Fetoprotein 1.7 FITO Screen NEGATIVE Anti-Mitochondrial Ab NEGATIVE Anti-Smooth Muscle Ab 20 H Hepatitis A IgM Ab Nonreactive Hep Bs Antigen Negative Hep Bs Antibody NONREACTIVE Hep B Core Total Ab Nonreactive Hepatitis C Ab (EIA) Nonreactive HIV 1&2 Ab/P24 Ag 4thGn Nonreactive TSH 0.91 Free T4 1.3 ULTRASOUND OF THE ABDOMEN ELASTOGRAPHY 03/2021 IMPRESSION: 1. Diffuse hepatic steatosis. There are multiple anechoic cysts. The largest cyst in the left hepatic lobe has septations and is complex. No solid lesion or hemangioma seen. Mild pelvic fullness right kidney but no hydronephrosis or echogenic renal calculi in either kidney. 2. Liver elastography: 1.54. Findings suggestive of cACLD ruled out. Dictated By:EARL LAM MDSigned By:<Electronically signed by EARL LAM MD in OV>03/22/21 Code(s): K75.81 - Nonalcoholic steatohepatitis (CARR) (2) Irritable bowel syndrome with both constipation and diarrhea: Code(s): K58.2 - Mixed irritable bowel syndrome (3) H. pylori infection: Comment: confirmed eradication 02/2020 stool antigen Code(s): A04.8 - Other specified bacterial intestinal infections (4) GERD (gastroesophageal reflux disease): Code(s): K21.9 - Gastro-esophageal reflux disease without esophagitis Plan She is currently not taking any GI medications. She has been lost to follow up since 2020. She has been having diarrhea alt with CIC, whens he has diarrhea she will have fecal urgency and incontinence. She is fearful to travel. YET she says that she has more CIC and will have to take dulcolax. When she has the bad constipation cycle she will then try to get more fiber in her diet and will water and then she will start going more frequently; however this will perpetuate her into her cycle of severe diarrhea as above. She will also take N-acetylcysteine, lemon balm, Vit D and probiotics. Specifically, she has not taking any magnesium supp lements. She does not feel that is Dulcolax puts her into a diarrheal phase as she will it will clean her out and then she will be normal for awhile before the diarrheal phase onsets. Her mother suffers from diarrhea as well and gastritis. Will also start her back on a trial of Creon to see if this is helpful. She needs hemorrhoid cream as these have been bad. Orders: Orders C Reactive Protein Today K58.2 - Mixed irritable bowel syndrome GI Panel Today K58.2 - Mixed irritable bowel syndrome Pancreatic Elastase-1 Today K58.2 - Mixed irritable bowel syndrome Rast Allergen Today K58.2 - Mixed irritable bowel syndrome Calprotectin, Fecal Today K58.2 - Mixed irritable bowel syndrome Medications: New brzwti-pjbvyweq-brxequb 4,200-14,200- 24,600 unit 2 caps PO BID 60 caps 6RF K58.2 - Mixed irritable bowel syndrome hydrocortisone 2.5% (Proctosol HC) BE SURE TO INCLUDE RECTAL APPICATOR!! 1 appl MT BID 30 grams 6RF hemorrhoids K64.9 - Unspecified hemorrhoids Coding Level of Care Code Est Pt Level 4 (38888) Diagnoses CARR (nonalcoholic steatohepatitis) K75.81 Irritable bowel syndrome with both constipation and diarrhea K58.2 H. pylori infection A04.8 GERD (gastroesophageal reflux disease) K21.9
[2023-11-22 12:29] VITALS: BP 120/73; PULSE 81; BMI 27.4
== END 2023-11-22 13:11 | disposition home or self-care (01) ==
PROVIDERS: PCP Internal Medicine; Visit Provider Nurse Practitioner
DX: K75.81 Nonalcoholic steatohepatitis (NASH) (principal); K58.2 Mixed irritable bowel syndrome; A04.8 Other specified bacterial intestinal infections; K21.9 Gastro-esophageal reflux disease without esophagitis
CPT/HCPCS: 99214

== ENCOUNTER → 2023-11-22 12:19 | Outpatient (BNVA) | payer OTHER, SELFPAY | PROVIDERS: PCP Internal Medicine; Visit Provider Nurse Practitioner ==

== ENCOUNTER 2023-12-12 07:59 | Outpatient (REF) | payer OTHER, SELFPAY ==
[2023-12-12 10:51] LABS: C Reactive Protein 0.86 mg/dL (< or = 0.50)
[2023-12-12 11:12] LABS: Free T4 (Free Thyroxine) 1.02 ng/dL (0.71-1.85)
== END 2023-12-12 08:00 | disposition home or self-care (01) ==
LOC: HO.HMGCLDS 07:59
PROVIDERS: PCP Internal Medicine; Visit Provider Nurse Practitioner
DX: R10.11 Right upper quadrant pain (principal); K58.2 Mixed irritable bowel syndrome; E03.9 Hypothyroidism, unspecified; R79.89 Other specified abnormal findings of blood chemistry; K76.89 Other specified diseases of liver; K75.81 Nonalcoholic steatohepatitis (NASH)
CPT/HCPCS: 36415; 84439; 86140

== ENCOUNTER 2023-12-13 07:15 | Outpatient (REF) | payer OTHER, SELFPAY ==
[2023-12-13 15:01] LABS: Adenovirus F 40/41 Not Detected (Not Detect.); Astrovirus Not Detected (Not Detect.); Campylobacter Not Detected (Not Detect.); Cryptosporidium Not Detected (Not Detect.); Cyclospora cayetanensis Not Detected (Not Detect.); E. coli EAEC Not Detected (Not Detect.); E. coli EPEC Not Detected (Not Detect.); E. coli ETEC Not Detected (Not Detect.); E. coli STEC Not Detected (Not Detect.); Entamoeba histolytica Not Detected (Not Detect.); Giardia lamblia Not Detected (Not Detect.); Norovirus GI/GII Not Detected (Not Detect.); Plesiomonas shigelloides Not Detected (Not Detect.); Rotavirus A Not Detected (Not Detect.); Salmonella Not Detected (Not Detect.); Sapovirus Not Detected (Not Detect.); Shigella sp./EIEC Not Detected (Not Detect.); Vibrio Not Detected (Not Detect.); Vibrio Cholerae Not Detected (Not Detect.); Yersinia enterocolitica Not Detected (Not Detect.)
[2023-12-19 16:44] LABS: Calprotectin, Fecal 5 mcg/g
[2023-12-21 18:58] LABS: Pancreatic Elastase-1 >500 mcg/g
== END 2023-12-13 07:16 | disposition home or self-care (01) ==
LOC: HO.HMGCLNP 07:15
PROVIDERS: PCP Internal Medicine; Visit Provider Nurse Practitioner
DX: K58.2 Mixed irritable bowel syndrome (principal)
CPT/HCPCS: 82656; 83993; 87507

== ENCOUNTER 2023-12-17 12:31 | Outpatient (AMB) | payer OTHER, SELFPAY ==
--- NOTE | 2023-12-17 12:43 | A.OFFVIS_ITS ---
Intake Vital Signs 12/17/23 12:51 Height 5 ft 1 in Weight 143 lb 4.807 oz BMI 27.1 BP 129/81 Blood Pressure Location Rt brachial Position Sitting Pulse 77 Intake Visit Reasons: 3 week follow up Intake Note: Dulce presents in the office as a 3 week follow up. CC: She states that she is not having any concerns at this time. Event Decorator Required: No Allergies No Known Allergies Allergy (Verified 12/17/23 12:57) HPI 3 week follow up HPI Details Assessment & Plan (1) CARR (nonalcoholic steatohepatitis): Comment: Laboratory Tests 03/22/2106/06/2106 [id number] Plt Count 228 Estimated GFR > 60 Ferritin 110 Total Bilirubin 0.8 Direct Bilirubin 0.3 GGT 23 AST 27 ALT 26 Alkaline Phosphatase 89 Alpha Fetoprotein 1.7 FITO Screen NEGATIVE Anti-Mitochondrial Ab NEGATIVE Anti-Smooth Muscle Ab 20 H Hepatitis A IgM Ab Nonreactive Hep Bs Antigen Negative Hep Bs Antibody NONREACTIVE Hep B Core Total Ab Nonreactive Hepatitis C Ab (EIA) Nonreactive HIV 1&2 Ab/P24 Ag 4thGn Nonreactive TSH 0.91 Free T4 1.3 ULTRASOUND OF THE ABDOMEN ELASTOGRAPHY 03/2021 IMPRESSION: 1. Diffuse hepatic steatosis. There are multiple anechoic cysts. The largest cyst in the left hepatic lobe has septations and is complex. No solid lesion or hemangioma seen. Mild pelvic fullness right kidney but no hydronephrosis or echogenic renal calculi in either kidney. 2. Liver elastography: 1.54. Findings cuevas ggestive of cACLD ruled out. Dictated By:EARL LAM MDSigned By:<Electronically signed by EARL LAM MD in OV>03/22/21 Code(s): K75.81 - Nonalcoholic steatohepatitis (CARR) (2) Irritable bowel syndrome with both c onstipation and diarrhea: Code(s): K58.2 - Mixed irritable bowel syndrome (3) H. pylori infection: Comment: confirmed eradication 02/2020 stool antigen Code(s): A04.8 - Other specified bacterial intestinal infections (4) GERD (gastroesophageal reflux diseas e): Code(s): K21.9 - Gastro-esophageal reflux disease without esophagitis Plan She is currently not taking any GI medications. She has been lost to follow up since 2020. She has been having diarrhea alt with CIC, whens he has diarrhea she will have fecal urgency and incontinence. She is fearful to travel. YET she says that she has more CIC and will have to take dulcolax. When she has the bad constipation cycle she will then try to get more fiber in her diet and will water and then she will start going more frequently; however this will perpetuate her into her cycle of severe diarrhea as above. She will also take N-acetylcysteine, lemon balm, Vit D and probiotics. Specifically, she has not taking any magnesium supplements. She does not feel that is Dulcolax puts her into a diarrheal phase as she will it will clean her out and then she will be normal for awhile before the diarrheal phase onsets. Her mother suffers from diarrhea as well and gastritis. Will also start her back on a trial of Creon to see if this is helpful. She needs hemorrhoid cream as these have been bad. Orders: Orders C Reactive Protein Today K58.2 - Mixed irri table bowel syndro me GI Panel Today K58.2 - Mixed irri table bowel syndro me Pancreatic Elastas e-1 Today K58.2 - Mixed irri table bowel syndro me Rast Allergen Today K58.2 - Mixed irri table bowel syndro me Calprotectin, Feca l Today K58.2 - Mixed irri table bowel syndro me Medications: New gwpfgb-gjayusiy-wp ylase 4,200-14,200 - 24,600 unit 2 caps PO BID 60 caps 6RF K58.2 - Mixed irri table bowel syndro me hydrocortisone 2.5 % (Proctosol HC) BE SURE TO INCLU DE RECTAL APPICATO R!! 1 appl OK BID 30 grams 6RF hemorrho ids K64.9 - Unspecifie d hemorrhoids LABS: Laboratory Tests 12/12/23 12/13/23 08:07 07:15 C-Reactive Protein 0.86 H Stool Calprotectin Pending Stool Pancreat Meena stase Pending 12/13/[address]: Jahaira Capps MD ORDERED: GI Panel Test Result Flag Refere nce Campylobacter No t Detected Not Det ect. P. shigell oides Not Detected No t Detect. Salmo myranda Not Detect ed Not Detect. Vibrio Not D etected Not Detect . Vibrio Choler ae Not Detected Not D etect. Y. enter ocolit. Not Detected Not Detect. E. coli EAEC Not Dete cted Not Detect. E. coli EPEC Not Detected Not Dete ct. E. coli ETE C Not Detected Not Detect. E. col i STEC Not Detecte d Not Detect. E . coli O157 Not salty licable Not Detect. E. coli c ontaining the O157 antigen are a sub set of Shig a-like toxin-produ cing E. coli (STEC ). Shigella/EIEC Not Detected Not D etect. Cryptosp oridium Not Detected Not Detect. Cyc lospora Not Dete cted Not Detect. E. histolytica Not Detected Not Dete ct. Giardia rich blia Not Detected Not Detect. Adenov irus Not Detecte d Not Detect. A strovirus Not De tected Not Detect. Norovirus N ot Detected Not De tect. Rotavirus A Not Detected N ot Detect. Bolivar virus Not Detec keny Not Detect. All results must be correlated with clinical fin dings. TODAY'S VISIT STILL NEEDS TEST ? RECTAL LAXITY NOTED ON LAST SCOPE CAM SINCE SHE HAS FECAL URGENCY R/T THIS AND SHE FEELS SUBJECTIVELY THIS IS THE PROBLEM. Defecogram vs balloon propulsion study. This causes her fear of traveling. 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 Confusion re: the RAST panel, sending again. Pancreatic elastase and fecal calprotectin are pending. ROV depending on defecogram etc. re sending for RAST. After research I am sending her to [facility] for an anorectal manometry 1st. Return office visit to be determined after the anorectal manometry results are received. [facility] Medical History (Updated 01/02/24 @ 15:43 by SLOANE Gabriel) Benign liver cyst COVID-19 vaccination declined Refused influenza vaccine Right upper quadrant abdominal pain Annual visit for general adult medical examination with abnormal findings CARR (nonalcoholic steatohepatitis) H. pylori infection Urinary incontinence Anxiety Acne rosacea Acquired hypothyroidism Insomnia Surgical History (Updated 12/17/23 @ 13:13 by SLOANE Gabriel) H/O esophagogastroduodenoscopy H/O colonoscopy Hernia History of breast augmentation History of tubal ligation Family History Father Liver cancer Mother HTN (hypertension) Diabetes mellitus Social History Housing: House Alcohol intake: current Alcohol intake frequency: 0-2 drinks per day Alcohol type: wine Patient Tobacco Use Status: Never used Tobacco e-Cigarette/Vaping Use: Never Used Second Hand Smoke Exposure: No service: No Current occupational status: employed 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 Cognitive needs: No Hearing needs: No Vision needs: Yes Review of Systems Const Denies fatigue, Denies fever(s), Denies night sweats, Denies poor appetite and Denies weight loss Eyes Details: glasses Reports requires corrective lenses ENT Reports Normal hearing present, Denies dental pain, Denies dysphagia, Denies hearing loss, Denies mouth pain, Denies odynophagia, Denies throat swelling, Denies tongue swelling and Reports other (Dentition adequate) Card Reports no additional complaints Resp Reports no additional complaints GI Details: Denies abdominal pain, Denies melena, Denies bloating, Denies hematochezia, Denies constipation, Denies GI cramping, Denies dysphagia, Denies excessive flatus, Denies early satiety, Reports heartburn, Reports diarrhea, Denies nausea, Denies odynophagia, Denies vomiting and Denies hematemesis Skin/Breast Denies pruritus, Denies lesions, Denies rash and Denies jaundice Neuro Reports Normal hearing present and Denies Abnormal speech present Endo Denies fatigue Aller/Immun Denies throat swelling and Denies tongue swelling Physical Exam Vital Signs: Last Vital Signs Pulse 77 12/17/23 12:51 BP 129/81 12/17/23 12:51 BMI result Body Mass Index 27.1 Const General: cooperative, no acute distress, well developed and well groomed Nutritional Appearance: average body habitus and well nourished Orientation/consciousness: oriented to person, oriented to place and oriented to time Limitations: No language barrier HEENT Head: Yes normocephalic and Yes atraumatic Eyes General: appearance normal, both eyes and all related structures Pupils: Equal, round and reactive pupils present Neck Neck: Yes normal visual inspection and Yes no lymphadenopathy Thyroid: Thyroid normal Resp Effort & Inspection: normal respiratory effort and able to speak in complete sentences Auscultation: clear to auscultation bilaterally Cardio Rate: regular rate Rhythm: regular rhythm Heart sounds: Normal, physiologic split S2 sound present Peripheral pulses: radial pulses present and posterior tibial pulses present GI Inspection: No distended and No Abdominal panniculus present Palpation (GI): Soft to palpation, nontender, no guarding, not rigid and No hepatosplenomegaly present Percussion: Yes normal to percussion Auscultation: normal bowel sounds Rectal Exam - Female: deferred Skin General skin exam: no rashes or lesions noted, turgor normal, skin not dry, no jaundice, No spider nevi and no striae Rashes: no rashes Nails: normal Neuro General: oriented to person, oriented to place and oriented to time Cranial nerves: Yes Equal, round and reactive pupils present and Yes Normal hearing present Speech: No Abnormal speech present Extrem General: Yes normal to inspection, No clubbing, No cyanosis and No edema Psych Appearance: grossly normal and well kempt Mental Status: mental status grossly normal Speech and movement: Normal speech and movement present Affect: normal affect Attitude: cooperative Thought process: Normal thought process present and not confabulating Thought content: Normal thought content present Insight: Limited insight present (Psych) Judgement: Limited judgement present (Psych) Assessment & Plan Assessment & Plan (1) Fecal incontinence: Code(s): R15.9 - Full incontinence of feces (2) Irritable bowel syndrome with both constipation and diarrhea: Code(s): K58.2 - Mixed irritable bowel syndrome (3) GERD (gastroesophageal reflux disease): Code(s): K21.9 - Gastro-esophageal reflux disease without esophagitis Plan STILL NEEDS TEST ? RECTAL LAXITY NOTED ON LAST SCOPE CAM SINCE SHE HAS FECAL URGENCY R/T THIS AND SHE FEELS SUBJECTIVELY THIS IS THE PROBLEM. Defecogram vs balloon propulsion study. This causes her fear of traveling. 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 Confusion re: the RAST panel, sending again. Pancreatic elastase and fecal calprotectin are pending. ROV depending on defecogram etc. re sending for RAST. After research I am sending her to [facility] for an anorectal manometry 1st. Return office visit to be determined after the anorectal manometry results are received. Coding Level of Care Code Est Pt Level 3 (63296) Diagnoses Fecal incontinence R15.9 Irritable bowel syndrome with both constipation and diarrhea K58.2 GERD (gastroesophageal reflux disease) K21.9
[2023-12-17 12:51] VITALS: BP 129/81; PULSE 77; BMI 27.1
== END 2023-12-17 13:41 | disposition home or self-care (01) ==
PROVIDERS: PCP Internal Medicine; Visit Provider Nurse Practitioner
DX: R15.9 Full incontinence of feces (principal); K58.2 Mixed irritable bowel syndrome; K21.9 Gastro-esophageal reflux disease without esophagitis
CPT/HCPCS: 99213

== ENCOUNTER → 2023-12-17 12:31 | Outpatient (BNVA) | payer OTHER, SELFPAY | PROVIDERS: PCP Internal Medicine; Visit Provider Nurse Practitioner ==

== ENCOUNTER 2024-02-03 07:55 | Outpatient (REF) | payer OTHER, SELFPAY ==
[2024-02-03 11:20] LABS: Free T4 (Free Thyroxine) 1.09 ng/dL (0.71-1.85); Thyroid Stimulating Hormone 1.73 uIU/mL (0.32-4.0)
== END 2024-02-03 07:56 | disposition home or self-care (01) ==
LOC: HO.HMGCLDS 07:55
PROVIDERS: PCP Internal Medicine; Referring Provider Nurse Practitioner; Visit Provider Internal Medicine
DX: K58.2 Mixed irritable bowel syndrome (principal); E03.9 Hypothyroidism, unspecified; Z91.09 Other allergy status, other than to drugs and biological substances
CPT/HCPCS: 36415; 84439; 84443; 86003

== ENCOUNTER 2024-02-14 09:17 | Outpatient (AMB) | payer OTHER, SELFPAY ==
[2024-02-14 09:24] VITALS: BP 116/75; PULSE 87; BMI 26.7
--- NOTE | 2024-02-14 09:24 | A.OFFVIS_ITS ---
Vital Signs 02/14/24 09:24 Height 5 ft 1 in Weight 141 lb 8.588 oz BMI 26.7 BP 116/75 Blood Pressure Location Rt brachial Position Sitting Pulse 87 Intake Visit Reasons: follow up req by patient Intake Note: Dulce returns to in office follow up of IBS and labs. CC: Patient c/o constipation, lower back pain, and LUQ abdominal pain sometimes. 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 RECTAL LAXITY NOTED ON LAST SCOPE CAM SINCE SHE HAS FECAL URGENCY R/T THIS AND SHE FEELS SUBJECTIVELY THIS IS THE PROBLEM. Defecogram vs balloon propulsion study. This causes her fear of traveling. She did not picker feeder the creon r/t a copay of $78. Confusion re: the RAST panel, sending again. Pancreatic elastase and fecal calprotectin are pending. ROV depending on defecogram etc. re sending for RAST. After research I am sending her to [facility] for an anorectal manometry 1st. Return office visit to be determined after the anorectal manometry results are received. LABS: Laboratory Tests 12/13/23 07:15 Stool Calprotectin 5 Stool Pancreat Elastase >500 THE RAST PANEL WAS NEGATIVE FOR ANY FOOD ALLERGIES TODAY'S VISIT She will be bringing me an FMLA form. She has not heard re: the defecogram. she is now in a CIC phase. She take bisacodyl with success. Discussed loperimide for diarrhea phase. She did better when she was on creon in past, now ? high copay &78 - checking in to this. Rast neg, panc elas neg, zulema pro neg. She ? eula trial of diflucan. She has $50 copay for me. ROV 6 weeks. PFSH Medical History Benign liver cyst COVID-19 vaccination declined Refused influenza vaccine Right upper quadrant abdominal pain Annual visit for general adult medical examination with abnormal findings CARR (nonalcoholic steatohepatitis) H. 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 Cognitive needs: No Hearing needs: No Vision needs: Yes Review of Systems Const Denies fatigue, Denies fever(s), Denies night sweats, Denies poor appetite and Denies weight loss ENT Reports Normal hearing present, Denies dental pain, Denies dysphagia, Denies hearing loss, Denies mouth pain, Denies odynophagia, Denies throat swelling, Denies tongue swelling and Reports other (Dentition adequate) Card Reports no additional complaints Resp Reports no additional complaints GI Details: Fecal incontinence Denies abdominal pain, Denies melena, Reports bloating, Denies hematochezia, Reports constipation, Denies GI cramping, Denies dysphagia, Denies excessive flatus, Denies early satiety, Denies heartburn, Reports diarrhea, Denies nausea, Denies odynophagia, Denies vomiting and Denies hematemesis Skin/Breast Denies pruritus, Denies lesions, Denies rash and Denies jaundice Neuro Reports Normal hearing present and Denies Abnormal speech present Endo Denies fatigue Aller/Immun Denies throat swelling and Denies tongue swelling Physical Exam Vital Signs: Last Vital Signs Pulse 87 02/14/24 09:24 BP 116/75 02/14/24 09:24 BMI result Body Mass Index 26.7 Const General: cooperative, no acute distress, well developed and well groomed Nutritional Appearance: average body habitus and well nourished Orientation/consciousness: oriented to person, oriented to place and oriented to time Limitations: No language barrier HEENT Head: Yes normocephalic and Yes atraumatic Eyes General: appearance normal, both eyes and all related structures Pupils: Equal, round and reactive pupils present Neck Neck: Yes normal visual inspection and Yes no lymphadenopathy Thyroid: Thyroid normal Resp Effort & Inspection: normal respiratory effort and able to speak in complete sentences Auscultation: clear to auscultation bilaterally Cardio Rate: regular rate Rhythm: regular rhythm Heart sounds: Normal, physiologic split S2 sound present Peripheral pulses: radial pulses present and posterior tibial pulses present GI Inspection: No distended and No Abdominal panniculus present Palpation (GI): Soft to palpation, nontender, no guarding, not rigid and No hepatosplenomegaly present Percussion: Yes normal to percussion Auscultation: normal bowel sounds Rectal Exam - Female: deferred Skin General skin exam: no rashes or lesions noted, turgor normal, skin not dry, no jaundice, No spider nevi and no striae Rashes: no rashes Nails: normal Neuro General: oriented to person, oriented to place and oriented to time Cranial nerves: Yes Equal, round and reactive pupils present and Yes Normal hearing present Speech: No Abnormal speech present Extrem General: Yes normal to inspection, No clubbing, No cyanosis and No edema Psych Appearance: grossly normal and well kempt Mental Status: mental status grossly normal Speech and movement: Normal speech and movement present Affect: normal affect Attitude: cooperative Thought process: Normal thought process present and not confabulating Thought content: Normal thought content present Insight: Fair insight present (Psych) Judgement: Fair judgement present (Psych) Results Reviewed Results Reviewed: LABS: Laboratory Tests 12/13/23 07:15 Stool Calprotectin 5 Stool Pancreat Elastase >500 THE RAST PANEL WAS NEGATIVE FOR ANY FOOD ALLERGIES Assessment & Plan Assessment & Plan (1) GERD (gastroesophageal reflux disease): Code(s): K21.9 - Gastro-esophageal reflux disease without esophagitis Category: Medical (2) Irritable bowel syndrome with both constipation and diarrhea: Code(s): K58.2 - Mixed irritable bowel syndrome Category: Medical (3) Candidiasis of mouth and esophagus: Code(s): B37.81 - Candidal esophagitis; B37.0 - Candidal stomatitis Category: Medical Plan She will be bringing me an FMLA form. She has not heard re: the defecogram. she is now in a CIC phase. She take bisacodyl with success. Discussed loperimide for diarrhea phase. She did better when she was on creon in past, now ? high copay &78 - checking in to this. Rast neg, panc elas neg, zulema pro neg. She ? eula trial of diflucan. She has $50 copay for me. ROV 6 weeks. Medications: New fluconazole (Diflucan) 100 mg PO DAILY 10 tabs 0RF 10 days B37.0 - Candidal stomatitis, B37.81 - Candidal esophagitis loperamide 2 mg PO QID 120 caps 6RF Coding Level of Care Code Est Pt Level 3 (55515) Diagnoses GERD (gastroesophageal reflux disease) K21.9 Irritable bowel syndrome with both constipation and diarrhea K58.2 Candidiasis of mouth and esophagus B37.81; B37.0
== END 2024-02-14 09:57 | disposition home or self-care (01) ==
PROVIDERS: PCP Internal Medicine; Visit Provider Nurse Practitioner
DX: K21.9 Gastro-esophageal reflux disease without esophagitis (principal); K58.2 Mixed irritable bowel syndrome; B37.81 Candidal esophagitis; B37.0 Candidal stomatitis
CPT/HCPCS: 99213

== ENCOUNTER → 2024-02-14 09:17 | Outpatient (BNVA) | payer OTHER, SELFPAY | PROVIDERS: PCP Internal Medicine; Visit Provider Nurse Practitioner ==

== ENCOUNTER 2024-07-06 10:52 | Outpatient (AMB) | payer OTHER, SELFPAY ==
--- NOTE | 2024-07-06 11:22 | A.OFFPC_ITS ---
Vital Signs 07/06/24 11:38 Height 5 ft 1 in Weight 140 lb BMI 26.4 BP 120/82 Blood Pressure Location Rt brachial Position Sitting Pulse 70 Pulse Source Pulse Oximeter Pulse Oximetry (%) 99 Oxygen Delivery Method Room Air Intake Visit Reasons: Annual Intake Note: Pt is here today for her PE:Last mammogram 07/11/23, papsmear 07/18/23 and colonoscopy 01/05/19 Allergies No Known Allergies Allergy (Verified 07/06/24 11:56) Medication List - Last Reconciled 07/06/24 by Jahaira Cabrera MD azelaic acid 15% 1 appl topical BID Levoxyl (levothyroxine) 100 mcg PO DAILY 90 days NS lifitegrast 5% (Xiidra) 1 drp ophthalmic (eye) BID lorazepam 0.5 mg PO DAILY PRN zolpidem 10 mg PO BEDTIME PRN Tobacco use date assessed: 07/06/24 Dental Screening Dental Screen Date: 07/06/24 Did you have a dental visit in the last 12 months?: No Did you have a dental problem in the last 6 months where you did not have access to dental care?: No Was dental information given to patient?: Patient has dentist HPI Annual HPI Details 54-year-old lady with history of acquire d hypothyroidism, here today for physical exam. She is up-to-date with her mammogram 07/11/23, and cervical cancer screening, had last papsmear 07/18/23 and she had a screening colonoscopy 01/05/19 , not due for repeat until 2028. She has been taking her medications as directed,, with latest thyroid levels within normal limits, but still feels very tired all the time, has anhedonia, does not feel motivated to do anything, and has been having a lot of mood swings and anxiety attacks. Patient states that this is progressively getting worse that her children has started noticing. She also has frequent insomnia, difficulty with initiating and maintaining sleep. She has been told that she snores a lot, and has had frequent awakenings, with difficulty go back to sleep. Patient does not feel rested when she wakes up, and always feels the need to take a nap during the day. [facility] Medical History (Updated 07/06/24 @ 12:16 by Jahaira Cabrera MD) Fatigue Loud snoring Excessive daytime sleepiness Sleeping difficulties Depression with anxiety Right upper quadrant abdominal pain COVID-19 vaccination declined Refused influenza vaccine Annual visit for general adult medical examination with abnormal findings H. 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 1. Little interest or pleasure in doing things: several days 2. Feeling down, depressed, or hopeless: several days 3. Trouble falling or staying asleep, or sleeping too much: nearly every day 4. Feeling tired or having little energy: nearly every day 5. Poor appetite or overeating: not at all 6. Feeling bad about yourself - or that you are a failure or have let yourself or your family down: not at all 7. Trouble concentrating on things, such as reading the newspaper or watching television: not at all 8. Moving or speaking so slowly that other people could have noticed. Or the opposite - being so fidgety or restless that you have been moving around a lot more than usual: not at all 9. Thoughts that you would be better off or of hurting yourself in some way: not at all Total score: 8 Depression Screening Interpretation: Positive Depression Screening Follow-up: Existing condition, New Medication prescribed and Community Mental Health Worker F/U Depression Screening Done: Yes Source: Developed by Drs. Harvey Ortiz, Viviana B.Conrad Cevallos and colleagues, with an educational kit from [employer]. Thrive Questionnaire Date Thrive assessed: 07/06/24 I am a: Patient What is your living situation today?: I have a steady place to live Within the past 12 months, did the food you bought not last and you didn't have the money to get more?: I choose not to answer this question Within the past 12 months, did you worry whether your food would run out before you got money to buy more?: Sometimes True Do you have trouble paying for medicines?: No Do you have trouble getting transportation to medical appointments?: No Do you have trouble paying your heating and electricity bill?: No Do you have trouble taking care of your child, family member or friend?: No Do you have trouble with day-to-day activities such as bathing, preparing meals, shopping, managing finances, etc.?: No Are you currently unemployed and looking for a job?: No Are you interested in more education?: No Please select the resources that you would like help with: None Currently or been in a relationship where the following occur: No concerns reported THRIVE Score: 1 AUDIT C Alcohol Use Questionnaire (AUDIT-C) 1. How often do you have a drink containing alcohol?: 2-3 times a week 2. How many drinks containing alcohol do you have on a typical day when you are drinking?: 1 or 2 3. How often do you have six or more drinks on one occasion?: Never Total Score: 3 JAKE-7 AMB Questionnaire JAKE-7 Date JAKE - 7 assessed: 07/06/24 Feeling nervous, anxious, or on edge: 2 = More than half the days Not being able to stop or control worryin = Nearly every day Worrying too much about different things: 3 = Nearly every day Trouble relaxin = More than half the days Being so restless that it is hard to sit still: 2 = More than half the days Becoming easily annoyed or irritable: 3 = Nearly every day Feeling afraid as if something awful might happen: 3 = Nearly every day Total JAKE-7 score (0-4 normal; 5-9 mild; 10-14 moderate; 15-21 severe): 18 Source: Developed by Drs. Harvey Ortiz, Conrad Nair and colleagues, with an educational kit from [employer]. JAKE-7 Assessment Billing JAKE-7 Assessment Tool: JAKE-7 Assessment 57914 Review of Systems Const Reports as per HPI, Denies body aches, Denies fever(s), Denies headache(s) and Denies weakness Eyes Denies change in vision ENT Denies dizziness and Denies headache(s) Card Denies chest pain, Denies lightheadedness, Denies palpitations and Denies dyspnea Resp Denies chest congestion, Denies cough and Denies dyspnea GI Reports no additional complaints Denies urinary frequency, Denies dysuria and Denies urinary urgency Musc Reports no additional complaints Skin/Breast Denies breast swelling, Denies breast mass and Denies rash Neuro Denies dizziness, Denies headache(s), Denies restless legs and Denies weakness Psych Reports as per HPI Endo Denies polydipsia, Denies polyuria and Denies palpitations Abraham/Lymph Reports no additional complaints Aller/Immun Reports no additional complaints Physical exam (Primary Care) Vital Signs: Last Vital Signs Pulse 70 07/06/24 11:38 BP 120/82 07/06/24 11:38 Pulse Ox 99 07/06/24 11:38 Oxygen Delivery Method Room Air 07/06/24 11:38 BMI result Body Mass Index 26.4 Tobacco/Smoking Status: Tobacco use Status Tobacco use date assessed 07/06/24 07/06/24 11:24 Patient Tobacco Use Status Never used Tobacco 07/06/24 11:24 e-Cigarette/Vaping Use Never Used 07/06/24 11:24 PHQ-9: PHQ-9 Score PHQ-9: Total score 8 07/06/24 12:19 Depression Screening Interpretation: Positive Depression Screening Follow-up: Existing condition, New Medication prescribed and Community Mental Health Worker F/U Thrive Assessment: Date of Thrive Assessment Date Thrive assessed 07/06/24 07/06/24 11:24 Currently or been in a relationship where the following occur: No concerns reported Advance Care Planning discussion: Completed/Scanned Date of discussion: 07/06/24 Who was present: Patient Forms completed: Health Care Proxy Time spent: 16-45 minutes Actual minutes spent: 16 Const Other: Alert oriented x3, no acute cardiorespiratory distress, ambulatory with normal gait Nutritional Appearance: average body habitus Orientation/consciousness: patient oriented x3 HENMT Face and sinus: Yes face symmetric Mouth: Normal oral and palatal mucosa present and moist mucous membranes Eyes General: appearance normal, both eyes and all related structures Neck Neck: Yes full ROM, Yes no lymphadenopathy, Yes supple and Yes no JVD Chest Chest palpation & inspection: normal inspection of the chest Breast/axilla palpation: normal palpation of the breasts and other (breast implants) Resp Auscultation: clear to auscultation bilaterally Cardio Palpation: normal PMI Rate: regular rate Rhythm: regular rhythm Heart sounds: S1 normal heart sound present and S2 normal heart sound present GI Palpation (GI): Soft to palpation, nontender, no guarding and no masses Auscultation: normal bowel sounds Other: Goes to her own OBGYN Dr. Dixie Grant, who also orders her mammogram and does her cervical cancer screening General: Yes no CVA tenderness Back/Spine/Pelvis Back: no CVA tenderness and No back tenderness Skin General skin exam: no rashes or lesions noted Neuro General: patient oriented x3, gait normal and no focal motor deficits Extrem General: Yes normal to inspection, Yes full ROM, Yes no joint enlargement, Yes no pedal edema, Yes no calf tenderness and Yes normal gait Psych Appearance: grossly normal and well kempt Mental Status: mental status grossly normal Speech and movement: Normal speech and movement present Affect: Sad affect present Attitude: cooperative Thought process: Normal thought process present Thought content: Depressive thoughts present Results Reviewed Results Reviewed: Laboratory Tests 02/03/24 08:00 TSH 1.73 Free T4 1.09 Assessment and Plan Assessment & Plan (1) Annual visit for general adult medical examination with abnormal findings: Code(s): Z00.01 - Encounter for general adult medical examination with abnormal findings Plan: Will check appropriate labs. Continue dental visit every 6 months and regular eye exams, at least every 2 years. Take adequate calcium in diet and vitamin-D 3 at 2000 IU per cap once a day, in addition to weight-bearing exercises to help maintain good muscle tone and weight control. Instructed to do self-breast exam, and continue yearly mammogram, goes to [facility] for routine Pap and pelvic exam which is currently up-to-date. She is also up-to-date with her colonoscopy screening, patient does not want to get vaccination (2) Depression with anxiety: Code(s): F41.8 - Other specified anxiety disorders Plan: Will start on buspirone 5 mg per tablet to take 1 tablet twice a day, may take an extra dose as needed during the middle of the day for acute anxiety attacks. Ninety tablets prescribed with no refill, short-term prescription sent for lorazepam, to take 1 tablet once a day only as needed for severe acute anxiety attacks, 10 tablets prescribed with no refill. Referral was made for to outpatient Psychiatry at [facility] for further evaluation and management. Will see her by telehealth in 4 weeks if not yet seen by Psychiatry (3) Sleeping difficulties: Code(s): G47.9 - Sleep disorder, unspecified Plan: Prescription sent for zolpidem to take only as needed for difficulty sleeping. Referred to sleep clinic for evaluation for sleep apnea (4) Excessive daytime sleepiness: Code(s): G47.19 - Other hypersomnia Plan: Referred to sleep clinic for evaluation for sleep apnea (5) Loud snoring: Code(s): R06.83 - Snoring Plan: Referral to sleep clinic (6) Insomnia: Code(s): G47.00 - Insomnia, unspecified Qualifiers: Insomnia type: unspecified Qualified Code(s): G47.00 - Insomnia, unsp ecified Plan: Referred to sleep clinic, prescription sent for zolpidem to take only as needed (7) Acquired hypothyroidism: Code(s): E03.9 - Hypothyroidism, unspecified Plan: Last TSH and free T4 was within normal limits, continued on Levoxyl 100 mcg taken once a day in a.m. (8) Fatigue: Code(s): R53.83 - Other fatigue Plan: Ordered CBC and vitamin B12, last TSH and free T4 was within normal limits in 02/01/2020 (9) Advanced directives, counseling/discussion: Code(s): Z71.89 - Other specified counseling Plan: Initiated the conversation about Advanced Directives. Advanced Directives help patients prepare for current and future decisions about their medical treatment and place of care. Discussed with patient that it is a process where a patients current condition and prognosis are reviewed, their wishes for information regarding their illness are elicited, and likely medical dilemmas are presented and options discussed. Healthcare proxy form completed today. The form can be amended as needed, reviewed yearly and make changes as needed Orders: Orders Vitamin B12 and Folate 07/06/24 E03.9 - Hypothyroidism, unspecified, G47.00 - Insomnia, unspecified, R53.83 - Other fatigue Complete Blood Count Auto Diff 07/06/ E03.9 - Hypothyroidism, unspecified, G47.00 - Insomnia, unspecified, R53.83 - Other fatigue Referrals Psychiatry Referral F41.8 - Other specified anxiety disorders Sleep Medicine Referral G47.19 - Other hypersomnia, G47.9 - Sleep disorder, unspecified, R06.83 - Snoring Medications: New buspirone 5 mg PO TID 90 tabs 0RF F41.8 - Other specified anxiety disorders Refilled zolpidem Try taking initially half a tablet or 5 mg at bedtime , as needed for insomnia 10 mg PO BEDTIME PRN 30 tabs 0RF sleep G47.00 - Insomnia, unspecified lorazepam 0.5 mg PO DAILY PRN 10 tabs 0RF anxiety anxiety attacks Coding Level of Care Code Est Pt Prev Care 40-64y(70416) Diagnoses Annual visit for general adult medical examination with abnormal findings Z00.01 Depression with anxiety F41.8 Sleeping difficulties G47.9 Excessive daytime sleepiness G47.19 Loud snoring R06.83 Insomnia, unspecified type G47.00 Insomnia type: unspecified Acquired hypothyroidism E03.9 Fatigue R53.83 Advanced directives, counseling/discussion Z71.89 Additional Codes JAKE-7 Assessment Billing - JAKE-7 Assessment Tool: JAKE-7 Assessment 75568 ([id number]) Vital Signs *Quality* - Advance Care Planning discussion: Completed/Scanned ([id number]) Vital Signs *Quality* - Time spent: 16-45 minutes ([id number])
[2024-07-06 11:38] VITALS: BP 120/82; PULSE 70; O2SAT 99; BMI 26.4
== END 2024-07-06 12:18 | disposition home or self-care (01) ==
PROVIDERS: PCP Internal Medicine; Visit Provider Internal Medicine
DX: Z00.01 Encounter for general adult medical examination with abnormal findings (principal); F41.8 Other specified anxiety disorders; G47.9 Sleep disorder, unspecified; G47.19 Other hypersomnia; R06.83 Snoring; G47.00 Insomnia, unspecified; E03.9 Hypothyroidism, unspecified; R53.83 Other fatigue; Z71.89 Other specified counseling; Z00.00 Encounter for general adult medical examination without abnormal findings

== ENCOUNTER → 2024-07-06 10:52 | Outpatient (BNVA) | payer OTHER, SELFPAY | PROVIDERS: PCP Internal Medicine; Visit Provider Internal Medicine | DX: Z00.01 Encounter for general adult medical examination with abnormal findings (principal); F41.8 Other specified anxiety disorders; G47.19 Other hypersomnia; R06.83 Snoring; G47.00 Insomnia, unspecified; E03.9 Hypothyroidism, unspecified; R53.83 Other fatigue; Z79.899 Other long term (current) drug therapy; Z71.89 Other specified counseling | CPT/HCPCS: 96127 ==

== ENCOUNTER 2024-08-10 07:42 | Outpatient (REF) | payer OTHER, SELFPAY ==
[2024-08-10 10:00] LABS: MANUAL DIFF FLAG NO
[2024-08-10 10:07] LABS: Basophils Percent Auto 0.5 % (0-2); Eosinophils Absolute Auto 0.3 X10*3/uL (0.0-0.4); Hematocrit 41.4 % (37.0-47.0); Imm Gran Abs Auto 0.01 X10*3/uL (0.00-0.03); Imm Gran Pct Auto 0.2 % (0.0-0.4); Lymphocytes Absolute Auto 1.8 X10*3/uL (1.2-4.9); Lymphocytes Percent Auto 28.4 % (20-40); Mean Corpuscular HGB Conc 33.8 g/dl (31.0-35.0); Mean Corpuscular Hemoglobin 30.4 pg (27.0-33.0); Mean Corpuscular Volume 89.8 fL (80.0-98.0); Monocytes Absolute Auto 0.4 X10*3/uL (0.1-1.2); Monocytes Percent Auto 6.7 % (2-11); Neutrophils Absolute Auto 3.7 x10*3/uL (2.0-8.3); Neutrophils Percent Auto 59.2 % (45-73); Platelet Count 222 X10*3/uL (160-400); Red Blood Count 4.61 X10*6/uL (4.20-5.50); Red Cell Distribution Width 11.5 % (11.0-16.0); White Blood Count 6.2 X10*3/uL (4.8-10.8)
[2024-08-10 10:33] LABS: Cholesterol 194 mg/dL (<200); Glucose Fasting 96 mg/dL (60-99); HDL Cholesterol 73 mg/dL (>40); LDL Cholesterol Calculated 109 mg/dL (<100); Triglycerides 62 mg/dL (<150)
[2024-08-10 10:53] LABS: Folate 12.4 ng/mL (> or = 4.0); Vitamin B12 482 pg/mL (200-900)
[2024-08-10 10:54] LABS: Free T4 (Free Thyroxine) 1.04 ng/dL (0.71-1.85); Thyroid Stimulating Hormone 3.07 uIU/mL (0.32-4.0); Vitamin D 25-OH Total 61.4 ng/mL (>30)
== END 2024-08-10 07:43 | disposition home or self-care (01) ==
LOC: HO.HMGCLDS 07:42
PROVIDERS: PCP Internal Medicine; Visit Provider Internal Medicine
DX: E03.9 Hypothyroidism, unspecified (principal); N95.1 Menopausal and female climacteric states; R53.83 Other fatigue; G47.00 Insomnia, unspecified; Z13.1 Encounter for screening for diabetes mellitus
CPT/HCPCS: 36415; 80061; 82306; 82607; 82746; 82947; 84439; 84443; 85025

== ENCOUNTER → 2024-08-11 16:30 | Outpatient (AMB) | payer OTHER, SELFPAY ==
--- NOTE | 2024-08-11 16:33 | A.OFFVIS_ITS ---
Vital Signs 08/11/24 16:35 Height 5 ft 1 in Weight 140 lb 10.479 oz BMI 26.6 BP 119/80 Blood Pressure Location Rt brachial Position Sitting Pulse 81 Intake Visit Reasons: Constipation Intake Note: Patient in office today in follow up of results and constipation. CC: Patient c/o LUQ abdominal pain, lower back pain, constipation, and dark stools. 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 She has not heard re: the defecogram. she is now in a CIC phase. She take bisacodyl with success. Discussed loperimide for diarrhea phase. She did better when she was on creon in past, now ? high copay $78 - checking in to this. Rast neg, panc elas neg, zulema pro neg. She ? eula trial of diflucan. She has $50 copay for me. ROV 6 weeks. Medications: New fluconazole (Diflucan) 100 mg PO DAILY 10 tabs 0RF 10 days B37.0 - Candidal stomatitis, B37.81 - Candidal esophagitis loperamide 2 mg PO QID 120 caps 6RF TODAY'S VISIT Filled out FMLA paperwork for 1-2 days /er mo. Start trial of LInzess 145mcg as she feels CIC is the dominant process and this does not have systemic absorption. Redirect BE test to [facility]. She never heard from [facility]. ROV 4 weeks. [facility] Medical History Fatigue Loud snoring Excessive daytime sleepiness Sleeping difficulties Depression with anxiety Right upper quadrant abdominal pain COVID-19 vaccination declined Refused influenza vaccine Annual visit for general adult medical examination with abnormal findings H. 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 Cognitive needs: No Hearing needs: No Vision needs: Yes Review of Systems Const Denies fatigue, Denies fever(s), Denies night sweats, Denies poor appetite and Denies weight loss Eyes Details: glasses Reports requires corrective lenses ENT Reports Normal hearing present, Denies dental pain, Denies dysphagia, Denies hearing loss, Denies mouth pain, Denies odynophagia, Denies throat swelling, Denies tongue swelling and Reports other (Dentition adequate) Card Reports no additional complaints Resp Reports no additional complaints GI Details: Denies abdominal pain, Denies melena, Denies bloating, Denies hematochezia, Reports constipation, Denies GI cramping, Denies dysphagia, Denies excessive flatus, Denies early satiety, Reports heartburn, Denies diarrhea, Denies nausea, Denies odynophagia, Denies vomiting and Denies hematemesis Skin/Breast Denies pruritus, Denies lesions, Denies rash and Denies jaundice Neuro Reports Normal hearing present and Denies Abnormal speech present Endo Denies fatigue Aller/Immun Denies throat swelling and Denies tongue swelling Physical Exam Vital Signs: Last Vital Signs Pulse 81 08/11/24 16:35 BP 119/80 08/11/24 16:35 BMI result Body Mass Index 26.6 Const General: cooperative, no acute distress, well developed and well groomed Nutritional Appearance: average body habitus and well nourished Orientation/consciousness: oriented to person, oriented to place and oriented to time Limitations: No language barrier HEENT Head: Yes normocephalic and Yes atraumatic Eyes General: appearance normal, both eyes and all related structures Pupils: Equal, round and reactive pupils present Neck Neck: Yes normal visual inspection and Yes no lymphadenopathy Thyroid: Thyroid normal Resp Effort & Inspection: normal respiratory effort and able to speak in complete sentences Auscultation: clear to auscultation bilaterally Cardio Rate: regular rate Rhythm: regular rhythm Heart sounds: Normal, physiologic split S2 sound present Peripheral pulses: radial pulses present and posterior tibial pulses present GI Inspection: No distended and No Abdominal panniculus present Palpation (GI): Soft to palpation, nontender, no guarding, not rigid and No hepatosplenomegaly present Percussion: Yes normal to percussion Auscultation: normal bowel sounds Rectal Exam - Female: deferred Skin General skin exam: no rashes or lesions noted, turgor normal, skin not dry, no jaundice, No spider nevi and no striae Rashes: no rashes Nails: normal Neuro General: oriented to person, oriented to place and oriented to time Cranial nerves: Yes Equal, round and reactive pupils present and Yes Normal hearing present Speech: No Abnormal speech present Extrem General: Yes normal to inspection, No clubbing, No cyanosis and No edema Psych Appearance: grossly normal and well kempt Mental Status: mental status grossly normal Speech and movement: Normal speech and movement present Affect: normal affect Attitude: cooperative Thought process: Normal thought process present and not confabulating Thought content: Normal thought content present Insight: Limited insight present (Psych) Judgement: Limited judgement present (Psych) Assessment & Plan Assessment & Plan (1) GERD (gastroesophageal reflux disease): Code(s): K21.9 - Gastro-esophageal reflux disease without esophagitis Category: Medical (2) Anal sphincter incontinence: Code(s): R15.9 - Full incontinence of feces Category: Medical Plan Filled out [place] paperwork for 1-2 days /er mo. Start trial of LInzess 145mcg as she feels CIC is the dominant process and this does not have systemic absorption. Redirect BE test to [facility]. She never heard from [facility]. ROV 4 weeks. Orders: Referrals Gastroenterology Referral R15.9 - Full incontinence of feces Medications: New linaclotide (Linzess) Take first thing in the morning with a full glass of water. 145 mcg PO QAM 30 caps 3RF K58.1 - Irritable bowel syndrome with constipation Coding Level of Care Code Est Pt Level 3 (61507) Diagnoses GERD (gastroesophageal reflux disease) K21.9 Anal sphincter incontinence R15.9
[2024-08-11 16:35] VITALS: BP 119/80; PULSE 81; BMI 26.6
== END ==
LOC: HO.HGI 16:31
PROVIDERS: PCP Internal Medicine; Visit Provider Nurse Practitioner
DX: K21.9 Gastro-esophageal reflux disease without esophagitis (principal); R15.9 Full incontinence of feces
CPT/HCPCS: 99213

== ENCOUNTER → 2024-08-11 16:30 | Outpatient (BNVA) | payer OTHER, SELFPAY | PROVIDERS: PCP Internal Medicine; Visit Provider Nurse Practitioner ==

== ENCOUNTER 2024-08-14 10:42 | Outpatient (AMB) | payer OTHER, SELFPAY ==
--- NOTE | 2024-08-14 10:39 | A.OFFPC_ITS ---
Intake Visit Reasons: 4 week follow up Intake Note: Pt is having a 4 weeks f/u med buspirone and lab results Allergies No Known Allergies Allergy (Verified 08/14/24 11:15) Medication List - Last Reconciled 08/14/24 by Jahaira Cabrera MD azelaic acid 15% 1 appl topical BID buspirone 5 mg PO TID doxycycline monohydrate 50 mg PO BID Levoxyl (levothyroxine) 100 mcg PO DAILY 90 days NS lifitegrast 5% (Xiidra) 1 drp ophthalmic (eye) BID linaclotide (Linzess) 145 mcg PO QAM lorazepam 0.5 mg PO DAILY PRN zolpidem 10 mg PO BEDTIME PRN Tobacco use date assessed: 08/14/24 Dental Screening Dental Screen Date: 08/14/24 Did you have a dental visit in the last 12 months?: Yes Did you have a dental problem in the last 6 months where you did not have access to dental care?: No Was dental information given to patient?: Patient has dentist HPI 4 week follow up HPI Details 54-year-old lady with anxiety/ depressio n, hypothyroidism here today for follow-up after starting buspirone 5 mg taken 1 tablet 3 times a day. Patient states that she has been feeling better on the medication with anxiety attacks less frequent but still present. She has needed to take lorazepam at least once a week for acute anxiety attacks. She does say that zolpidem has helped her a lot with sleep, has been taking 5 mg at night as needed for insomnia which has been helping, wakes up refreshed, denies any grogginess or lightheadedness after taking it. She does have an appointment with the sleep clinic in 10/2024. [facility] Medical History Fatigue Loud snoring Excessive daytime sleepiness Sleeping difficulties Depression with anxiety Right upper quadrant abdominal pain COVID-19 vaccination declined Refused influenza vaccine Annual visit for general adult medical examination with abnormal findings H. 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 1. Little interest or pleasure in doing things: not at all 2. Feeling down, depressed, or hopeless: not at all 3. Trouble falling or staying asleep, or sleeping too much: several days 4. Feeling tired or having little energy: not at all 5. Poor appetite or overeating: not at all 6. Feeling bad about yourself - or that you are a failure or have let yourself or your family down: not at all 7. Trouble concentrating on things, such as reading the newspaper or watching television: not at all 8. Moving or speaking so slowly that other people could have noticed. Or the opposite - being so fidgety or restless that you have been moving around a lot more than usual: not at all 9. Thoughts that you would be better off or of hurting yourself in some way: not at all Total score: 1 Depression Screening Interpretation: Negative Depression Screening Done: Yes 79319 - PHQ-9 Billing: Yes Source: Developed by Drs. Harvey Ortiz, Viviana Samaniego, Conrad Mccartney and colleagues, with an educational kit from [email or web address]. Thrive Questionnaire Date Thrive assessed: 07/06/24 JAKE-7 AMB Questionnaire JAKE-7 Date JAKE - 7 assessed: 08/14/24 Feeling nervous, anxious, or on edge: 1 = Several days Not being able to stop or control worryin = Not at all Worrying too much about different things: 0 = Not at all Trouble relaxin = Not at all Being so restless that it is hard to sit still: 0 = Not at all Becoming easily annoyed or irritable: 0 = Not at all Feeling afraid as if something awful might happen: 0 = Not at all Total JAKE-7 score (0-4 normal; 5-9 mild; 10-14 moderate; 15-21 severe): 1 Source: Developed by Drs. Harvey Ortiz, Viviana Samaniego, Conrad Mccartney and colleagues, with an educational kit from [email or web address]. JAKE-7 Assessment Billing JAKE-7 Assessment Tool: JAKE-7 Assessment 68682 Review of Systems Const Denies fatigue, Denies fever(s), Denies night sweats and Denies poor appetite Eyes Details: glasses Reports requires corrective lenses Card Reports no additional complaints Resp Reports no additional complaints GI Details: Denies abdominal pain, Denies melena, Denies bloating, Denies hematochezia, Denies constipation, Denies GI cramping, Denies excessive flatus, Denies early satiety, Denies heartburn, Denies diarrhea, Denies nausea, Denies vomiting and Denies hematemesis Musc Reports no additional complaints Skin/Breast Denies pruritus, Denies lesions, Denies rash and Denies jaundice Neuro Denies Abnormal speech present Psych Reports as per HPI Endo Denies fatigue Abraham/Lymph Reports no additional complaints Physical exam (Primary Care) Tobacco/Smoking Status: Tobacco use Status Tobacco use date assessed 08/14/24 08/14/24 10:40 Patient Tobacco Use Status Never used Tobacco 08/14/24 10:40 e-Cigarette/Vaping Use Never Used 08/14/24 10:40 Depression Screening Interpretation: Negative Thrive Assessment: Date of Thrive Assessment Date Thrive assessed 07/06/24 08/14/24 10:40 Neuro Speech: No Abnormal speech present Telehealth Telehealth Telehealth Platform: [facility] Location of provider rendering services: practice address Location of patient: address on file Patient Identification confirmed using: Name, : Yes Telehealth method: video Patient verbally consented to treatment: Yes Patient verbally consented to billing insurance company: Yes Patient informed of any privacy concerns related to visit: Yes Minutes spent on Phone/Video with Pt.: 15 Results Reviewed Results Reviewed: ayse: Dulce Byrd Age/Sex: 54/F : 1970 Unit#: [id number] Attend Dr: Jahaira Cabrera MD Re08/10/24 Status: DEP REF Location: [facility] Disch: SPEC : [id number] CHANDRA: 08/10/24 STATUS: COMP REQ : [id number] RECD: 08/10/[address]: Jahaira Cabrera MD COMP: 08/10/24 ENTERED: 08/10/[address]: ORDERED: Glu Fasting, Lipid Panel, Vitamin D 25-OH, Free T4, TSH Test Result Flag Reference FBS 96 60-99 mg/dL Triglyceride 62 <150 mg/dL Desirable Triglyceride: less than 150 mg/dL Borderline High Triglyceride 150-199 mg/dL High Triglyceride: 200-499 mg/dL Very High Triglyceride: greater than or equal to 5OO mg/dL Cholesterol 194 <200 mg/dL Desirable Cholesterol: less than 200 mg/dL Borderline High Cholesterol: 200-239 mg/dL High Cholesterol: greater than 239 mg/dL LDL Calculated 109 H <100 mg/dL Desirable LDL: less than 100 mg/dL Near Optimal/Above Optimal LDL: 110-129 mg/dL Borderline High LDL: 130-159 mg/dL High LDL: 160-189 mg/dL Very High LDL: greater than or equal to 190 mg/dL HDL 73 >40 mg/dL Desirable HDL: greater than 40 mg/dL Note: This HDL assay may give artificially low results in patients with liver disease. Vit D 25-OH Tot 61.4 >30 ng/mL Health Based Reference Values* < 20 ng/mL Deficient 20-30 ng/mL Insufficient > 30 ng/mL Sufficient *Yfn VANEGAS. N Engl J Med. 2007;357:266-280 Care must be taken in interpreting Vitamin D results from different laboratories and methodologies. Published data demonstrated that results from patients undergoing hemodialysis may show a negative bias when tested with various automated 25-OH vitamin D assays when compared to LC-MS/MS. When testing samples from patients whose predominant form of Vitamin D is Vitamin D2, such as patients receiving Vitamin D2 supplementation, results that are subtherapeutic should be confirmed with another method such as LC-MS/MS. Free T4 1.04 0.71-1.85 ng/dL TSH 3rd Gen. 3.07 0.32-4.0 uIU/mL Note: A sustained TSH level above 2.5 uIU/mL may warrant further investigation. Coding Level of Care Code Tele Est Pt Level 3 (27308) Diagnoses Insomnia, unspecified type G47.00 Insomnia type: unspecified Acquired hypothyroidism E03.9 Depression with anxiety F41.8 Sleeping difficulties G47.9 Additional Codes JAKE-7 Assessment Billing - JAKE-7 Assessment Tool: JAKE-7 Assessment 42012 ([id number]) Assessment & Plan Assessment & Plan (1) Insomnia: Code(s): G47.00 - Insomnia, unspecified Category: Medical Qualifiers: Insomnia type: unspecified Qualified Code(s): G47.00 - Insomnia, unspecified Plan: Continue with zolpidem, take 5 mg or 10 mg only as needed for acute episodes of insomnia (2) Acquired hypothyroidism: Code(s): E03.9 - Hypothyroidism, unspecified Category: Medical Plan: Thyroid levels are within normal limits, continue with Levoxyl 100 mcg daily (3) Depression with anxiety: Code(s): F41.8 - Other specified anxiety disorders Category: Medical Plan: Buspirone dose increased to 10 mg 1 tablet twice a day, take lorazepam as needed only for acute anxiety attacks (4) Sleeping difficulties: Code(s): G47.9 - Sleep disorder, unspecified Category: Medical Plan: May continue taking zolpidem 10 mg per tablet initially take half a tablet as needed for episodes of insomnia Orders: Orders Vitamin D 25-OH Total 01/12/25 E03.9 - Hypothyroidism, unspecified, F41.8 - Other specified anxiety disorders, Z86.39 - Personal history of other endocrine, nutritional and metabolic disease Free T4 (Free Thyroxine) 01/12/25 E03.9 - Hypothyroidism, unspecified, F41.8 - Other specified anxiety disorders, Z86.39 - Personal history of other endocrine, nutritional and metabolic disease Thyroid Stimulating Hormone 01/12/25 E03.9 - Hypothyroidism, unspecified, F41.8 - Other specified anxiety disorders, Z86.39 - Personal history of other endocrine, nutritional and metabolic disease Medications: Changed From buspirone 5 mg PO TID 90 tabs 0RF F41.8 - Other specified anxiety disorders To buspirone 10 mg PO BID 60 tabs 3RF F41.8 - Other specified anxiety disorders Refilled lorazepam 0.5 mg PO DAILY PRN 10 tabs 0RF anxiety anxiety attacks Levoxyl (levothyroxine) 100 mcg PO DAILY 90 days 90 tabs 2RF NS E03.9 - Hypothyroidism, unspecified
== END 2024-08-14 11:20 | disposition home or self-care (01) ==
LOC: HO.HMCC 10:42
PROVIDERS: PCP Internal Medicine; Visit Provider Internal Medicine
DX: G47.00 Insomnia, unspecified (principal); E03.9 Hypothyroidism, unspecified; F41.8 Other specified anxiety disorders; G47.9 Sleep disorder, unspecified

== ENCOUNTER → 2024-08-14 10:42 | Outpatient (BNVA) | payer OTHER, SELFPAY | PROVIDERS: PCP Internal Medicine; Visit Provider Internal Medicine | DX: G47.00 Insomnia, unspecified (principal); E03.9 Hypothyroidism, unspecified; F41.8 Other specified anxiety disorders; Z79.899 Other long term (current) drug therapy | CPT/HCPCS: 96127 ==

== ENCOUNTER 2024-09-15 09:02 | Outpatient (AMB) | payer OTHER, SELFPAY ==
[2024-09-15 09:07] VITALS: BP 126/65; PULSE 77; BMI 26.7
--- NOTE | 2024-09-15 09:07 | MHC.OFFVIS ---
Vital Signs 09/15/24 09:07 Height 5 ft 1 in Weight 141 lb 1.533 oz BMI 26.7 BP 126/65 Blood Pressure Location Lt brachial Position Sitting Pulse 77 Intake Visit Reasons: [facility] IBS 4 wks f/u Intake Note: Dulce presents in the office as a 4 week follow up for [facility] and IBS. CC: She states that the linzess does not seem to be working for her. Allergies No Known Allergies Allergy (Verified 09/15/24 09:10) HPI HPI [facility] IBS 4 wks f/u: Details: Filled out FMLA paperwork for 1-2 days /er mo. Start trial of LInzess 145mcg as she feels [facility]IC is the dom process adn this does not have systemic absoprtion. Redirect [facility] test to [facility]. Assessment & Plan (1) GERD (gastroesophageal reflux disease): Code(s): K21.9 - Gastro-esophageal reflux disease without esophagitis Category: Medical (2) Anal sphincter incontinence: Code(s): R15.9 - Full incontinence of feces Category: Medical Orders: Referrals Gastroenterology Referral R15.9 - Full incontinence of feces Medications: New linaclotide (Linzess) Take first thing in the morning with a full glass of water. 145 mcg PO QAM 30 caps 3RF K58.1 - Irritable bowel syndrome with constipation TODAY'S VISIT The Linzess at 145 micro g is not working for her. She took it for 2 or 3 days with absolutely no bowel movement then she did have a bowel movement very delayed on the 3rd or 4th day but had to leave work because of the severe reactive diarrhea. Also, there is problems with the FMLA form because I was out and we will need to redo this and I will attend to this today an e-mail it to the appropriate authority so they know that this is genuine. We will increase her to Linzess 290 micro g and will titrate there depending on affect her side effect. She has quite a high co-pay so will do a return office visit in 6 weeks. I encourage her to use the pt portal for communication. [facility] Medical History Fatigue Loud snoring Excessive daytime sleepiness Sleeping difficulties Depression with anxiety Right upper quadrant abdominal pain COVID-19 vaccination declined Refused influenza vaccine Annual visit for general adult medical examination with abnormal findings H. 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 Cognitive needs: No Hearing needs: No Vision needs: Yes Review of Systems Const Denies fatigue, Denies fever(s), Denies night sweats, Denies poor appetite and Denies weight loss ENT Reports Normal hearing present, Denies dental pain, Denies dysphagia, Denies hearing loss, Denies mouth pain, Denies odynophagia, Denies throat swelling, Denies tongue swelling and Reports other (Dentition adequate) Card Reports no additional complaints Resp Reports no additional complaints GI Details: Denies abdominal pain, Denies melena, Denies bloating, Denies hematochezia, Reports constipation, Denies GI cramping, Denies dysphagia, Denies excessive flatus, Denies early satiety, Reports heartburn, Denies diarrhea, Denies nausea, Denies odynophagia, Denies vomiting and Denies hematemesis Skin/Breast Denies pruritus, Denies lesions, Denies rash and Denies jaundice Neuro Reports Normal hearing present and Denies Abnormal speech present Endo Denies fatigue Aller/Immun Denies throat swelling and Denies tongue swelling Physical Exam Vital Signs: Last Vital Signs Pulse 77 09/15/24 09:07 BP 126/65 09/15/24 09:07 BMI result Body Mass Index 26.7 Const General: cooperative, no acute distress, well developed and well groomed Nutritional Appearance: average body habitus and well nourished Orientation/consciousness: oriented to person, oriented to place and oriented to time Limitations: No language barrier HEENT Head: Yes normocephalic and Yes atraumatic Eyes General: appearance normal, both eyes and all related structures Pupils: Equal, round and reactive pupils present Neck Neck: Yes normal visual inspection and Yes no lymphadenopathy Thyroid: Thyroid normal Resp Effort & Inspection: normal respiratory effort and able to speak in complete sentences Auscultation: clear to auscultation bilaterally Cardio Rate: regular rate Rhythm: regular rhythm Heart sounds: Normal, physiologic split S2 sound present Peripheral pulses: radial pulses present and posterior tibial pulses present GI Inspection: No distended and No Abdominal panniculus present Palpation (GI): Soft to palpation, nontender, no guarding, not rigid and No hepatosplenomegaly present Percussion: Yes normal to percussion Auscultation: normal bowel sounds Rectal Exam - Female: deferred Skin General skin exam: no rashes or lesions noted, turgor normal, skin not dry, no jaundice, No spider nevi and no striae Rashes: no rashes Nails: normal Neuro General: oriented to person, oriented to place and oriented to time Cranial nerves: Yes Equal, round and reactive pupils present and Yes Normal hearing present Speech: No Abnormal speech present Extrem General: Yes normal to inspection, No clubbing, No cyanosis and No edema Psych Appearance: grossly normal and well kempt Mental Status: mental status grossly normal Speech and movement: Normal speech and movement present Affect: normal affect Attitude: cooperative Thought process: Normal thought process present and not confabulating Thought content: Normal thought content present Insight: Good insight present (Psych) Judgement: Good judgement present (Psych) Assessment & Plan Assessment & Plan (1) Chronic idiopathic constipation: Code(s): K59.04 - Chronic idiopathic constipation Category: Medical (2) GERD (gastroesophageal reflux disease): Code(s): K21.9 - Gastro-esophageal reflux disease without esophagitis Category: Medical Plan The Linzess at 145 micro g is not working for her. She took it for 2 or 3 days with absolutely no bowel movement then she did have a bowel movement very delayed on the 3rd or 4th day but had to leave work because of the severe reactive diarrhea. Also, there is problems with the FMLA form because I was out and we will need to redo this and I will attend to this today an e-mail it to the appropriate authority so they know that this is genuine. We will increase her to Linzess 290 micro g and will titrate there depending on affect her side effect. She has quite a high co-pay so will do a return office visit in 6 weeks. I encourage her to use the pt portal for communication. Medications: New linaclotide (Linzess) 290 mcg PO QAM 30 caps 6RF 30 days K59.04 - Chronic idiopathic constipation Discontinued linaclotide (Linzess) Take first thing in the morning with a full glass of water. Discontinued Reason: Doctor's Order 145 mcg PO QAM 30 caps 3RF K58.1 - Irritable bowel syndrome with constipation Coding Level of Care Code Est Pt Level 3 (94817) Diagnoses Chronic idiopathic constipation K59.04 GERD (gastroesophageal reflux disease) K21.9
== END 2024-09-15 09:40 | disposition home or self-care (01) ==
PROVIDERS: PCP Internal Medicine; Visit Provider Nurse Practitioner
DX: K59.04 Chronic idiopathic constipation (principal); K21.9 Gastro-esophageal reflux disease without esophagitis
CPT/HCPCS: 99213

== ENCOUNTER → 2024-09-15 09:02 | Outpatient (BNVA) | payer OTHER, SELFPAY | PROVIDERS: PCP Internal Medicine; Visit Provider Nurse Practitioner ==

== ENCOUNTER 2024-11-17 16:02 | Outpatient (AMB) | payer OTHER, SELFPAY ==
--- OUTSIDE RECORDS SUMMARY | 2024-11-17 16:04 | XMS_ITS | Data Portability ---
Author Organization [place] - [facility],, DIXIE PAYNE MD Address [address] [facility] [address] [place] [address] Care Team Providers Care Phlebotomy Services Technician Name Role Phone JOSEF ERVIN Primary Care Provider Assessment No assessment recorded. Plan of Treatment Reminders Order Date Submit Date Provider Last Modified By Organization Details Last Modified Time Details Appointments None recorded . Lab pap test, thinprep , cervical [address] [facility], Cytopathology Service, [address] [place], [address], 0 07:54:31 pap test, thinprep , cervical [address] [facility], Cytopathology Service, [address] [place], [address], 2 07:52:32 pap test, thinprep , cervical 2022 023 [facility], [address], [place], [address], 3 07:30:07 Referral None recorded . Procedures None recorded . Surgeries None recorded . Imaging MAMMO, screenin g, digital, bilatera l 2019 020 [facility]), [address] , [place], [address], 2 07:35:11 MAMMO, screenin g, digital, bilatera l 2021 022 [facility]), [address], [place], [address], 4 07:24:15 MAMMO, screenin g, digital, bilatera l - Breast Aspirati on and/or Biopsy if needed 2022 023 [facility]), [address], [place], [address], 4 07:27:06 Medication Orders clindamy deejay 2 % vaginal cream [address] [facility], [address] [place], [address], 0 13:07:27 fluconaz ole 150 mg tablet 2019 020 [facility], [address] [place], [address], 2 11:28:34 Patient TargetsNo targets recorded. Patient Instructions Encounter Date Encounter Id Patient Instructions Last Modified By Organization Details Last Modified Time 01/19/2020 [id number] bacterial vaginosis: care instructions Not available 01/19/2020 14:12:28 vaginal yeast infection: care instructions Not available 01/19/2020 14:15:57 This visit is a phone telehealth visit. The patient consented to the visit by phone. The patient was in her car in the parking lot of [employer] at the time of the call and the provider and patient were the only people on the line. I was at [address] [facility], [address], [place], [place], at the time of the call. She has a 4 to 7 day history of intermittent vaginal odor, Like tuna fish. She has no menses, does nto use tampons or condoms. It is unlikely that she has a foreign body in vaginal canal. She had bacterial vaginosis many years ago, And it was just like this. She notes that she has also been fighting vaginal pruritus and eula by taking in herbal medications orally. We discussed that the odor seems to be likely bacterial vaginosis. She is aware that without a wet mount we cannot be certain, however she believes that the symptoms are similar to when she had this previously. Will rx with vaginal clindamycin cream. She also would like something for the Eula, and the vaginal itching. Will call in an rx for diflucan oral tablet.She does not take warfarin. Possible side effects of medication discusse,d all questions answered. Call if symptoms do not improve or any problems. We also discussed how she and her family are doing with the covid pandemic management. She had a number of good questions about infectivity, social distancing, masks and their use, and how to keep infection from entering their home with introduced articles such as mail, packages, and delivered food. We discussed how long the virus is suspected to survive on different fomites, and ways to manage this. We also discussed how to sterilize shoes, with sunlight, or disinfectant. We discussed how to make and use a dilute bleach solution. We discussed the proper way to isolate a presumed or known positive who is in their home, and what to do with their used dishes, clothing, etc. She is aware that she can call back to schedule a personalized walk through of the home if this becomes a reality. The patient was agreeable to this plan. She is aware of the limitations caused by the covid restrictions, and this phone call, but was appreciative of the efforts to complete the evaluation. Face to face discussion 25 minutes Not available 01/19/2020 14:30:09 09/19/2020 [id number] learning about healthy weight Not available 09/19/2020 15:08:44 She is here for annual exam, is doing well. She appears to be in menopause, and handling it well. She and her family are doing indoor dining, and she is going to the mall shopping, she is aware that she is putting herself at unnecessary risk for getting covid. No menses since 2017, mild vasomotor symptoms only. Declines flu vaccine, I'm sort of an anti-vaxxer. She believes that her implants are silicone but not textured, she is advised to find out, and why. note from 2019: She is here for annual exam. Her FSH was 90 and estradiol 29 a year ago. she has nto had a menses since stopping the OCP over a year ago. She has only mild vasomotor symptoms, declines HRT. 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 She is advised to get 1500 mg of calcium daily into her diet and supplements combined. We discussed the benefits of adequate vitamin D supplementation to at least 400 units daily, daily aerobic exercise of 30 minutes, and stress reduction. Monthly self breast exam was taught, and stressed, and is advised to call if she discovers any new mass in the breast. Not available 09/19/2020 15:11:23 06/27/2022 [id number] [facility] Not available 06/27/2022 11:51:10 She is here for annual exam, has not had menses since 2017. She is still having vasomotor symptoms, and has anxiety, her PCP gave her lorazepam for this but she feels it is not helping enough. She has silicone breast implants, they are not textured, has not had a mammogram since 2018. Declines all vaccinations. _ Note from 2020: She is here for annual exam, is doing well. She appears to be in menopause, and handling it well. She and her family are doing indoor dining, and she is going to the mall shopping, she is aware that she is putting herself at unnecessary risk for getting covid. No menses since 2017, mild vasomotor symptoms only. Declines flu vaccine, I'm sort of an anti-vaxxer. She believes that her implants are silicone but not textured, she is advised to find out, and why. She declines rectal exam. We discussed option of starting HRT to see if it helps her anxiety nad sleep issues, she declines for now, will think about it. She is advised to contact her PCP to get a therapist, or her insurance to see if they can provide a list of available therapist. Monthly self breast exam was taught, and stressed, and is advised to call if she discovers any new mass in the breast. Not available 06/27/2022 11:52:29 07/18/2023 [id number] learning about healthy weight Not available 07/18/2023 13:08:21 She is here for annual, doing well. Mammo 07/11/23 was birads 2. Mild to moderate vasomotor symptoms, improved compared to last year. Note from 2021: She is here for annual exam, has not had menses since 2017. She is still having vasomotor symptoms, and has anxiety, her PCP gave her lorazepam for this but she feels it is not helping enough. She has silicone breast implants, they are not textured, has not had a mammogram since 2018. Declines all vaccinations. She appears to be doing well. Monthly self breast exam was taught, and stressed, and is advised to call if she discovers any new mass in the breast. Not available 07/18/2023 13:08:40 02/06/2024 [id number] This visit is a phone telehealth visit. The patient consented to the visit by phone. The patient was at home at the time of the call and the provider and patient were the only people on the line. I was at [address] [place] [address], [address], [place], [place], at the time of the call. She would like to talk about getting hormones tested because she has had worsening vasomotor symptoms. She notes that she has not had a menses since 2017. She has had vasomotor symptoms all along but in the past several months her vasomotor symptoms have worsened. She notes she upped my wine intake 2 months ago. She as been drinking daily for many years, to unwind at the end of her day. She tried to stop in the past but was unable to go more than 1 day without alcohol. _ Note from 08/05: She is here for annual, doing well. Mammo 07/11/23 was birads 2. Mild to moderate vasomotor symptoms, improved compared to last year. Note from 2021: She is here for annual exam, has not had menses since 2017. She is still having vasomotor symptoms, and has anxiety, her PCP gave her lorazepam for this but she feels it is not helping enough. She has silicone breast implants, they are not textured, has not had a mammogram since 2018. Declines all vaccinations. We had a long discussion about al this. She has been in menopause for many years, and typically the symptoms do not worsen at this stage unless there is a trigger. In her case it may be that the increased wine intake has triggered the increased hot flashes, night sweats and anxiety. She has lorazepam from her PCP but is hesitant to take it and so is using the wine as self medication, she agrees. She has noted increased life and work stressed recently. She is advised to discuss this with her PCP, to see if he has some suggestions in how to diminish her need for the alcohol to help her to decrease stress, as that would be healthier, and may well improve the vasomotor symptoms just by doing that. We also discussed the possibility of starting HRT at this time however she prefers to try to decrease the alcohol to see if this helps, first. The patient was agreeable to this plan. She is aware of the limitations caused by the covid restrictions, and this phone call. Face to face discussion 22 minutes Not available 02/06/2024 12:45:55 Reason for Referral None Reported. Results Created Date Observation Date Name Description Value Unit Range Abnormal Flag Note LastModifiedBy Organization Detail LastModifiedTime 09/19/20 20 09/19/2020 pap test, thinp rep, cervi zulema [id number] ThinP rep Pap, Image d: NEGAT ANDREA FOR SQUAM OUS INTRA EPITH ELIAL MAMTA Barbosa AND ERI STUBBS . Paola palomo , [place]( CP) (Case elect danika han 09 21 2020) ADEQU ACY: Satis facto ry Endoc ervic al/tr ansfo rmati on zone compo nent prese nt. SOURC E: ThinP rep Pap HPV IF ASCUS , Cervi zulema, Image d CLINI ZULEMA INFOR MATIO N: HPV If Diagn osis of ASCUS . LPS NEG. Z12.4 Not Available [facility]opathology Service [address] [place], [address], 09/21/2020 12:21:05 06/27/20 22 06/27/2022 PAP1C ASE [id number] ThinP rep Pap, Image d: NEGAT ANDREA FOR SQUAM OUS INTRA EPITH ELIAL LESIO N AND MALIG EVELYNE . Atrop hy. Mike becerra , [place]( CP) (Case elect danika ahumada rangel d 07 04 2022) ADEQU ACY: Satis facto ry Endoc ervic al/tr ansfo rmati on zone compo nent prese nt. SOURC E: ThinP rep Pap HPV IF Ascus : Refle x 16 and 18, Cervi zulema, Image d CLINI ZULEMA INFOR MATIO N: HPV If Diagn osis of ASCUS . LPS neg, [z01. 419] Not Available [facility] [address] [place], [address], 07/04/2022 11:16:11 07/18/20 23 07/18/2023 [facility] CYTOL OGY results Patinadege nt Name: WENDY KIM Caden lockett : 1969 (Age: 53) Lab Acces guillermo #: [id number] Colle ction Date: 2022 Acces guillermo Date: 2022 Sign Out Date: 07/24 Tissu e Sourc e: 1: THINP REP AUDIT MANAGER PAP TEST, CERVI ZULEMA: Final Diagn osis: NEGAT ANDREA FOR INTRA EPITH ELIAL LESIO N OR MALIG EVELYNE . Satis facto ry for evalu ation . Endoc ervic al/tr ansfo rmati on zone prese nt. Clini zulema Histo ry: Date of Last Menst rual Perio d: not avail able Menst rual Histo ry: Post- menop ausal Contr acept andrea Histo ry: not avail able Ancil chance munson: HPV (ASCU S) Case image d by the ThinP rep Tana boone with katt garcia or danilo head Perfo rmed at [facility] ate Refer ence [facility], [address] [place] Clini zulema Histo ry (othe r): Z01.4 19, routi ne scree n, LPS neg Phone #: [phone], On-Ca ll Patho logis t: [id number] Not Available [facility] [address], [place], [address], 07/24/2023 13:28:43 07/11/20 23 07/11/2023 MAMMO , scree francis, digit al, bilat eral No observ ation record ed. [facility] [address], [place], [address], 07/12/2023 07:58:51 Result Notes None recorded. Problems Name Problem SNOMED Code Status Onset Date Resolution Date Notes Provider Name and Address Organization Details Recorded Time Hypothyroi dism 71278504 Active 2015 Myriam oneal [place] - [facility], 6 14:14:45 Dysfunctio nal uterine bleeding Active 2015 Dixie Payne MD [address], [place], [address], [place] [facility], 6 14:59:08 Perimenopa usal disorder 163666654 Active 2015 Dixie Payne MD [address], [place], [address], [place] - [facility], 6 14:59:15 No consent - influenza immunizati on 207513552 Active 2019 she identifies as an anti-vaxx er although her children are vaccinated for all but influenza. Dixie Payne MD [address], [place], [address], [place] - [facility], 0 15:11:01 Screening for malignant neoplasm of rectum Active 2021 Dixie Payne MD [address], [place], [address], [place] - [facility], 2 11:50:55 Menopausal syndrome 560220203 Active 2023 Dixie Payne MD [address], [place], [address], [place] [facility], 4 12:28:03 Alcohol dependence 28045521 Active 2023 Dixie Payne MD [address], [place], [address], [place] [facility], 4 12:50:32 Problem Notes None recorded. Procedures Surgical History Date Name Laterality Status Provider Name and Address Organization Details Recorded Time 3 Most Recent Mammogram completed Katherine Fermin in [facility], 07/18/2023 12:56:39 4 Tubal Ligation completed Myriam Maxwell dago in [facility], 08/21/2016 14:21:23 6 Other completed Myriam Mendoza [place] - s in [facility], 08/21/2016 14:22:41 9 Breast Implants completed Dixie Payne MD [address], [place], [address], [place] - [facility], 09/19/2020 15:07:02 Imaging Results Imaging Date Name Status LastModified by [facility] Details LastModified Time 07/11/2023 MAMMO, screening, digital, bilateral completed [facility] [address], [place], [address], 07/12/2023 07:58:51 Procedure Notes None recorded. Medical Equipment None Reported. Allergies No known drug allergies Medications Name Sig Start Date Stop Date Status Note LastModified by Organization Details LastModified Time lidoc/nysta /banop/mi-a c TAKE 1 TABLESPOO N (15ML) BY MOUTH, SWISH FOR 30 SECONDS AND EXPECTORA TE EVERY1-2 HOURS NEEDED. STARTING DAY AFTER SURGERY. 06/27 completed Not Available Not Available Not Available tetracyclin e 500 mg capsule 06/27 completed Not Available Not Available Not Available [facility] Thyroid 60 mg tablet 08/21 completed Not Available Not Available Not Available levothyroxi ne 175 mcg tablet 02/11 completed Not Available Not Available Not Available levothyroxi ne 137 mcg tablet take 1 tablet by mouth every morning 07/09 completed Not Available Not Available Not Available Levoxyl 88 mcg tablet TAKE 1 TABLET BY MOUTH DAILY, SATURDAY THROUGH SATURDAY AND TAKE 1 & 1/2 TABLETS ON SUNDAYS. 09/13 completed Not Available Not Available Not Available acetaminoph en 325 mg tablet TAKE TWO TABLETS BY MOUTH EVERY 4 HOURS NEEDED FOR PAIN 06/27 completed Not Available Not Available Not Available prednisone 10 mg tablet take 4 tablets by mouth once daily for 3 days TAPER BY 1 TABLET EVERY 3 DAYS DIRECTED 02/11 completed Not Available Not Available Not Available [place] Thyroid 90 mg tablet 08/21 completed Not Available Not Available Not Available doxycycline hyclate 100 mg capsule 2023 active Not Available Not Available Not Avai lable ketoconazol e 2 % shampoo USE DAILY FACE WASH 09/13 completed Not Available Not Available Not Available azithromyci n 250 mg tablet 01/11 completed Not Available Not Available Not Available fluconazole 150 mg tablet TAKE 1 PILL WEEKLY FOR 3 WEEKS 06/27 completed Not Available Not Available Not Available valacyclovi r 1 gram tablet TAKE ONE TABLET BY MOUTH THREE TIMES A DAY active Not Available Not Available No t Available tretinoin 0.025 % topical cream APPLY A PEA SIZED AMOUNT TO FACE AT BEDTIME START EVERY 3RD NIGHT... (REFER TO PRESCRIPT ION NOTES). 09/13 completed Not Available Not Available Not Available fluocinolon e 0.01 % topical cream 09/13 completed Not Available Not Available Not Available ondansetron HCl 4 mg tablet 09/13 completed Not Available Not Available Not Available nystatin 500,000 unit tablet 06/27 completed Not Available Not Available Not Available metronidazo le 500 mg tablet 09/13 completed Not Available Not Available Not Available tretinoin 0.05 % topical cream APPLY ONE APPLICATI ON TO FACE FOR ACNE AT BEDTIME. active Not Available Not Available No t Available sulfamethox azole 800 mg-trimetho prim 160 mg tablet 09/13 completed Not Available Not Available Not Available adapalene 0.1 % topical cream 09/13 completed Not Available Not Available Not Available levothyroxi ne 100 mcg tablet TAKE ONE TABLET BY MOUTH EVERY DAY active Not Available Not Available No t Available [place] Thyroid 15 mg tablet 08/21 completed Not Available Not Available Not Available doxycycline monohydrate 50 mg capsule TAKE ONE CAPSULE BY MOUTH TWICE A DAY UNTIL IMPROVED; THEN REDUCE TO ONE PILL DAILY. 02/05 completed Not Available Not Available Not Available lorazepam 0.5 mg tablet TAKE 1 TABLET BY MOUTH DAILY NEEDED FOR ANXIETY. active Not Available Not Available No t Available dicyclomine 20 mg tablet TAKE ONE TABLET BY MOUTH THREE TIMES A DAY TAKE IT 15 MINUTES BEFORE MEALS) 07/18 completed Not Available Not Available Not Available doxycycline monohydrate 100 mg capsule 08/21 completed Not Available Not Available Not Available cephalexin 500 mg capsule 06/27 completed Not Available Not Available Not Available levothyroxi ne 125 mcg tablet 07/09 completed Not Available Not Available Not Available neomycin-po lymyxin-dex ameth 3.5 mg/mL-10,00 0 unit/mL-0.1 % eye drops 06/27 completed Not Available Not Available Not Available triamcinolo ne acetonide 0.1 % topical ointment APPLY TO THE AFFECTED AREAS ON THE NECK DOWN TWICE DAILY FOR 1 W... (REFER TO PRESCRIPT ION NOTES). 09/13 completed Not Available Not Available Not Available levothyroxi ne 150 mcg tablet take 1 tablet by mouth once daily 07/09 completed Not Available Not Available Not Available metronidazo le 0.75 % topical cream apply to affected area twice a day ON FACE 09/13 completed Not Available Not Available Not Available omeprazole 20 mg capsule,del ayed release 09/13 completed Not Available Not Available Not Available clindamycin 2 % vaginal cream INSERT 1 APPLICATO RFUL VAGINALLY AT BEDTIME FOR 7 DAYS 09/13 completed Not Available Not Available Not Available bisacodyl 5 mg tablet,vanessa yed release TAKE 4 TABLETS DIRECTED FOR BOWEL PREP ORALLY X 1 DAY 06/27 completed Not Available Not Available Not Available mupirocin 2 % topical ointment APPLY TO THE INSIDE OF EACH NOSTRIL TWICE A DAY FOR 2 WEEKS.. 09/13 completed Not Available Not Available Not Available zolpidem 5 mg tablet take 1 tablet by mouth once daily if needed 09/13 completed Not Available Not Available Not Available loteprednol etabonate 0.5 % eye drops,suspe nsion INSTILL ONE DROP TO BOTH EYES TWICE A DAY 06/27 completed Not Available Not Available Not Available imipramine 10 mg tablet TAKE ONE TABLET BY MOUTH EVERY DAY 06/27 completed Not Available Not Available Not Available zolpidem 10 mg tablet TAKE ONE TABLET BY MOUTH EVERY EVENING AT BEDTIME NEEDED FOR SLEEP; TRY TAKING INITIALLY 1/2 TABLET OR 5MG AT BEDTIME, NEEDED FOR INSO active Not Available Not Available No t Available hydrocortis one 2.5 % topical ointment APPLY TO AFFECTED AREA(S) ON THE EYELIDS TWICE A DAY FOR ONE WEEK THEN BREAK FOR ONE WEEK AND REPEAT NEEDED 09/13 completed Not Available Not Available Not Available fluticasone propionate 50 mcg/actuati on nasal spray,suspe nsion USE 2 SPRAYS IN EACH NOSTRIL ONCE A DAY FOR ALLERGY SYMPTOMS. active Not Available Not Available No t Available doxycycline hyclate 100 mg tablet take 1 tablet by mouth once daily 06/27 completed Not Available Not Available Not Available dicyclomine 10 mg capsule TAKE 1-2 CAPSULES BY MOUTH FOUR TIMES A DAY NEEDED FOR CRAMPING 06/27 completed Not Available Not Available Not Available levothyroxi ne 112 mcg tablet 08/21 completed Not Available Not Available Not Available oxycodone 5 mg tablet 06/27 completed Not Available Not Available Not Available neomycin 3.5 mg/g-polymy oswaldo B 10,000 unit/g-dexa meth 0.1 % eye oint 09/13 completed Not Available Not Available Not Available clindamycin 1 % lotion APPLY TO THE INFLAMED LESIONS ON THE FACE IN THE MORNING 09/13 completed Not Available Not Available Not Available azelaic acid 15 % topical gel APPLY TOPICALLY TO FACE FOR ROSACEA AT BEDTIME active Not Available Not Available No t Available Junel FE 11/02 (28) 1 mg-20 mcg (21)/75 mg (7) tablet 01/11 completed Not Available Not Available Not Available eszopiclone 2 mg tablet TAKE 1 TABLET BY MOUTH IMMEDIATE LY BEFORE BEDTIME.. . 06/27 completed Not Available Not Available Not Available Vitamin C 07/18 completed Not Available Not Available Not Available milk thistle 02/11 completed Not Available Not Available Not Available vitamin E 07/18 completed Not Available Not Available Not Available zinc 07/18 completed Not Available Not Available Not Available selenium 02/11 completed Not Available Not Available Not Available biotin 02/11 completed Not Available Not Available Not Available Vitamin D active Not Available Not Disha ilable Not Available doxycycline monohydrate 40 mg capsule,imm ediate - delay release 07/09 completed Not Available Not Available Not Available sulfacetami de sodium-sulf ur 10 %-5 % (w/v) lotion APPLY SPARINGLY TWO TIMES A DAY NEEDED active Not Available Not Available No t Available dapsone 5 % topical gel APPLY EVERY MORNING TO FACE FOR ACNE. active Not Available Not Available No t Available GaviLyte-G 236 gram-22.74 gram-6.74 gram-5.86 gram oral solution 07/09 completed Not Available Not Available Not Available Lo Loestrin Fe 1 mg-10 mcg (24)/10 mcg (2) tablet Take 1 tablet every day by oral route. 02/11 completed Not Available Not Available Not Available Creon 3,000 unit-9,500 unit-15,000 unit capsule,del ayed release TAKE ONE CAPSULE BY MOUTH FOUR TIMES A DAY 15 TO 30 MINUTES BEFORE MEALS AND SNACK 07/18 completed Not Available Not Available Not Available Daily [employer] active Not Available Not Available No t Available ivermectin 1 % topical cream APPLY CREAM TO THE FACE IN THE MORNING ONCE A DAY FOR ACNE AND ROSACEA 07/18 completed Not Available Not Available Not Available Xiidra 5 % eye drops in a dropperette INSTILL ONE DROP TO EACH EYE TWICE A DAY active Not Available Not Available No t Available Proctosol HC 2.5 % topical cream perineal applicator 09/13 completed Not Available Not Available Not Available 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 Thyroid 120 mg tablet 07/09 completed Not Available Not Available Not Available Vitals Date Recorded Body height Body mass index (BMI) Body weight Body temperature Heart rate Systolic blood pressure Diastolic blood pressure Provider Name and Address Organization Details Last Updated DateTime 0 156.21 cm 27 kg/m2 55781.6 1 g 97.3 [degF] 76 /min 153 mm[Hg] 78 mm[Hg] Katherine Fermin in [facility], 0 14:44:19 Date Recorded Body weight Body mass index (BMI) Body height Heart rate Systolic blood pressure Diastolic blood pressure Provider Name and Address Organization Details Last Updated DateTime 2 80996.6 4 g 23.4 kg/m2 156.21 cm 79 /min 147 mm[Hg] 68 mm[Hg] Katherine Fermin in [facility], 2 11:27:34 Date Recorded Body weight Body mass index (BMI) Body height Heart rate Systolic blood pressure Diastolic blood pressure Provider Name and Address Organization Details Last Updated DateTime 3 14286.3 4 g 25.8 kg/m2 156.21 cm 67 /min 123 mm[Hg] 74 mm[Hg] Katherine Fermin in [facility], 3 12:55:44 Date Recorded Body height Provider Name an d Address Organization Details Last Updated DateTime 02/06/2024 156.21 cm Chayo Molina in [facility], 02/06/2024 10:27:35 Social History Question Answer Notes LastModified by Organizat ion Details LastModified Time Tobacco Smoking Status Never Smoker RADHA Mancilla in [facility], 08/21/2016 14:16:27 What Is Your Level Of Alcohol Consumption? Moderate One Glass At Night Information not available 08/21/2016 What Is Your Level Of Caffeine Consumption? Moderate Information not available 07/18/2023 In The 14 Days Before Symptom Onset, Have You Had Close Contact With A Laboratory-confir med COVID-19 While That Case Was Ill? No Information not available 06/27/2022 In The 14 Days Before Symptom Onset, Have You Had Close Contact With A Person Who Is Under Investigation For COVID-19 While That Person Was Ill? No Information not available 06/27/2022 Have You Been To An Area Known To Be High Risk For COVID-19? No Information not available 06/27/2022 Are You Currently Employed? Yes Information not available 06/27/2022 What Type Of Diet Are You Following? REGULAR Information not available 08/21/2016 Which Illicit Or Recreational Drugs Have You Used? No Information not available 08/21/2016 Do You Reside In Or Have You Traveled To An Area Where Ebola Virus Transmission Is Active? No Information not available 08/21/2016 Do You Or Have You Ever Used E-cigarettes Or Vape? Never Used Electronic Cigarettes Information not available 07/09/2019 Education 2 Year College Informatio n not available 08/21/2016 Who Is Your Employer? [employer] Information not available 06/27/2022 What Is Your Occupation? [employer] Information not available 06/27/2022 How Many Days In The Past Year Have You Had A Heavy Drinking Consumption (4+ Female, 5+ Male)? 52 Information no t available 08/21/2016 Are There Any Guns Present In Your Home? No Information not available 06/27/2022 High Number Of Sexual Partners Yes Information not available 08/21/2016 To Which Gender Do You Self-identify? Female Information not available 08/21/2016 Marital Status Informatio n not available 08/21/2016 What Was The Date Of Your Most Recent Tobacco Screening? 02/06/2024 Information not available 02/06/2024 What Is Your Relationship Status? Information not available 06/27/2022 Are You Sexually Active? Yes Information not available 08/21/2016 Do You Or Have You Ever Used Smokeless Tobacco? Never Used Smokeless Tobacco Information not available 07/09/2019 How Much Tobacco Do You Smoke? No Information not available 08/21/2016 General Stress Level Low Information not available 02/11/2018 Do You Feel Stressed (tense, Restless, Nervous, Or Anxious, Or Unable To Sleep At Night)? HV15472-9 Information not available 06/27/2022 Do You Use Any Illicit Or Recreational Drugs? No Information not available 06/27/2022 How Many Years Have You Smoked Tobacco? 0 Information not available 01/11/2017 Have You Recently (within The Last 12 Weeks, Or During A Current ) Traveled To Or Lived In A Zika-affected Area? No Information not available 08/21/2016 Do You Or Have You Ever Used Any Other Forms Of Tobacco Or Nicotine? No Information not available 06/27/2022 How Many Days In The Past Year Have You Consumed 4 Or More Drinks? 15 Information no t available 02/06/2024 Sex: Female Functional Status Question Answer Note LastModified by Organization D etails LastModified Time What is your exercise level? Moderate Information not available 02/11/2018 Mental Status None recorded. Family History Relationship Description Onset Age of this Age Resolved Age Notes LastModified by Organization Details LastModified Time Father Disease of liver [email or web address] Not available 2015 14:15:43 Father Diabetes mellitus [email or web address] Not available 2015 14:16:03 Medical History Condition Response Anesthesia complications N High Blood Pressure N Candidate for MyRisk panel N Autoimmune Condition N Depression Y Lung Disease N Defects or Inherited Disease N History of Ovarian Cancer N BRCA testing in past N Anxiety Disorder N Arthritis N Infertility N History of Cancer N Endometriosis N Kidney or Bladder Problems N Thyroid Problems Y GI Problems Y Anemia N History of Breast Cancer N STONE exposure N Osteopenia N Psychiatric Illness N Diabetes N Headaches or Migraines N Asthma N Hepatitis N Heart Disease N Hypertension N Osteoporosis N Gynecological History Statement/Question Response Flow Light Date of LMP 06/18/2017 Menses Monthly No Age at Menarche 13 Current Control Method Tubal Ligat ion Most Recent Mammogram 07/11/2023 Age at First Child 21 Obstetrics History GPAL:G 6 P 4 0 2 4 Type Value Full Term 4 Spontaneous 2 Living 4 Total 6 Past Encounters Encounter ID Performer Location Encounter Start Date Encounter Closed Date Diagnosis/Indication Diagnosis SNOMED-CT Code Diagnosis ICD10 Code Diagnosis Note [id number] MD DIXIE Pierce MD [address] [place] [address], [address] [address] 08/21/2016 13:48:12 08/21/2016 16:06:00 Dysfunctional uterine bleeding 72071110 N93.8 Perimenopa usal disorder 566617649 N95.9 [id number] MD DIXIE Pierce MD [address] [place] [address],[address] [address] 01/11/2017 10:10:53 01/11/2017 13:35:44 Specialized medical examination 27900469 Z01.419 Screening for malignant neoplasm of rectum 232786533 Z12.12 Screening mammography 24 038480 Z12.31 [id number] MD DIXIE Pierce MD [address] [place] [address],[address] [address] 02/11/2018 14:33:25 02/13/2018 08:31:41 Specialized medical examination 11526200 Z01.419 Screening for malignant neoplasm of rectum 237288038 Z12.12 Screening mammography 24 616042 Z12.31 Amenorrhea 15662002 N91. 2 [id number] MD DIXIE Pierce MD [address] [place] [address],[address] [address] 07/09/2019 14:38:46 07/09/2019 16:05:22 Specialized medical examination 15713442 Z01.419 Screening mammography 24 562959 Z12.31 [id number] MD DIXIE Pierce MD [address] [place] [address],[address] [address] 01/19/2020 13:54:32 01/19/2020 14:31:30 Vulvitis 66845566 N76.2 B96.89 Candidal vulvovaginitis 25037489 B37.3 [id number] MD DIXIE Pierce MD [address] [place], [place] [address], [place] [address] 09/19/2020 14:40:59 09/19/2020 16:04:33 Specialized medical examination 62069377 Z01.419 Screening mammography 24 202935 Z12.31 [id number] MD DIXIE Pierce MD [address] [place] [address],[place] [address] 06/27/2022 11:24:47 06/27/2022 11:56:24 Specialized medical examination 21212521 Z01.419 Screening mammography 24 636402 Z12.31 [id number] MD DIXIE Pierce MD [address] [place] [address],[place] [address] 07/18/2023 12:49:27 07/19/2023 13:16:30 Specialized medical examination 64347883 Z01.419 Screening for malignant neoplasm of rectum 206957728 Z12.12 Screening mammography 24 352099 Z12.31 [id number] MD DIXIE Pierce MD [address] [place] [address], [place] [address] 02/06/2024 10:13:45 02/06/2024 14:20:40 Menopausal syndrome 532926026 N95.9 Alcohol dependence 24656 003 F10.20 Health Concerns Section Related Observation LastModified by Organization Detai ls LastModified Time None Recorded Concern Status LastModified by Organization Details LastModified Time None Recorded Advance Directives Directive None Recorded Payers Encounter Date Sequence Insurance Name Policy Number Policy Arora Covered Member ID Arora Member ID Guarantor Name 01/19/2020 1 [facility] [place] [place] [id number] Teo Swanson [id number] Dulce Swanson 09/19/2020 1 [facility] [place] [place] [id number] Teo Swanson [id number] Dulce Swanson 06/27/2022 1 [facility] [place] [place] [id number] Teo Swanson [id number] Dulce Swanson 07/18/2023 1 [facility] [place] [place] [id number] Teo Swanson [id number] Dulce Swanson 02/06/2024 1 [facility] [employer] [facility] [id number] Teo Swanson [id number] Dulce Swanson Notes Date Note Type Note Provider Name and Address Organization Details Recorded Time 01/19/2020 text/html This visit is a phone telehealth visit. The patient consented to the visit by phone. The patient was in her car in the parking lot of [employer] at the time of the call and the provider and patient were the only people on the line. I was at [address] [place] [address], [address], [place], [place], at the time of the call. She has a 4 to 7 day history of intermittent vaginal odor, Like tuna fish. She has no menses, does nto use tampons or condoms. It is unlikely that she has a foreign body in vaginal canal. She had bacterial vaginosis many years ago, And it was just like this. She notes that she has also been fighting vaginal pruritus and eula by taking in herbal medications orally. Dixie Payne MD [address], [place], [address], [facility], 01/19/2020 14:30:23 09/19/2020 text/html She is here for annual exam, is doing well. She and her family are doing indoor dining, and she is going to the mall shopping, she is aware that she is putting herself at unnecessary risk for getting covid. No menses since 2017, mild vasomotor symptoms only. Declines flu vaccine, I'm sort of an anti-vaxxer. note from 2019: She is here for annual exam. Her FSH was 90 and estradiol 29 a year ago. she has nto had a menses since stopping the OCP over a year ago. She has only mild vasomotor symptoms, declines HRT. 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 She is still having vasomotor symptoms, and has anxiety, her PCP gave her lorazepam for this but she feels it is not helping enough. She has silicone breast implants, they are not textured, has not had a mammogram since 2018. Declines all vaccinations. Note from 2019: She is here for annual exam, is doing well. She appears to be in menopause, and handling it well.She and her family are doing indoor dining, and she is going to the mall shopping, she is aware that she is putting herself at unnecessary risk for getting covid.No menses since 2017, mild vasomotor symptoms only.Declines flu vaccine, I'm sort of an anti-vaxxer. She believes that her implants are silicone but not textured, she is advised to find out, and why. Dixie Payne MD [address], [place], [address], [facility] in [facility], 06/27/2022 11:52:46 07/18/2023 text/html She is here for annual, doing well. Mammo 07/11/23 was birads 2. Mild to moderate vasomotor symptoms, improved compared to last year. Note from 2021: She is here for annual exam, has not had menses since 2017. She is still having vasomotor symptoms, and has anxiety, her PCP gave her lorazepam for this but she feels it is not helping enough.She has silicone breast implants, they are not textured, has not had a mammogram since 2018.Declines all vaccinations. Dixie Payne MD [address], [place], [address], [facility] in [facility], 07/18/2023 13:08:54 02/06/2024 text/html This visit is a phone telehealth visit. The patient consented to the visit by phone.The patient was at home at the time of the call and the provider and patient were the only people on the line.I was at [address], [address], [place], at the time of the call. She would like to talk about getting hormones tested because she has had worsening vasomotor symptoms. She notes that she has not had a menses since 2017. She has had vasomotor symptoms all along but in the past several months her vasomotor symptoms have worsened. She notes she upped my wine intake 2 months ago. She as been drinking daily for many years, to unwind at the end of her day. She tried to stop in the past but was unable to go more than 1 day without alcohol. __ Note from 08/05: She is here for annual, doing well. Mammo 07/11/23 was birads 2. Mild to moderate vasomotor symptoms, improved compared to last year. Note from 2021: She is here for annual exam, has not had menses since 2016. She is still having vasomotor symptoms, and has anxiety, her PCP gave her lorazepam for this but she feels it is not helping enough.She has silicone breast implants, they are not textured, has not had a mammogram since 2018.Declines all vaccinations. Dixie Payne MD [address], [place], [address], [place] [facility], 02/06/2024 12:53:19 OBGyn Episode No OBEpisode recorded.
--- NOTE | 2024-11-17 16:19 | MHC.OFFVISPS ---
Intake Intake Visit Reasons: consultation Direct Support Staff Required: No Allergies No Known Allergies Allergy (Verified 09/15/24 09:10) Medication List - Last Reconciled 11/17/24 by Nory Green APRN azelaic acid 15% 1 appl topical BID doxycycline monohydrate 50 mg PO BID Levoxyl (levothyroxine) 100 mcg PO DAILY 90 days NS lifitegrast 5% (Xiidra) 1 drp ophthalmic (eye) BID linaclotide (Linzess) 290 mcg PO QAM 30 days lorazepam 0.5 mg PO DAILY PRN sulfacetamide sodium-sulfur 10-5 % (w/v) topical BID PRN zolpidem 10 mg PO BEDTIME PRN HPI- Psychiatric Chief Complaint: consultation HPI Narrative: Patient is a 54-year-old mother of 4 children 2 grown and 2 younger children she was referred by her primary care physician for an evaluation of depression and anxiety the patient is reports depressed mood low energy lack of interest feeling bad about herself trouble concentrating and a recent episode suicidal ideation which resolved on its own however the patient reports that she was very scared when she had the intrusive suicidal ideation. She says that she will never hurt herself because of her children she has a 16-year-old and a 12-year-old at home she reports feeling depressed off and on for the last 5 or 6 years but it is getting worse she worries all the time she says the major stressors that her drinks alcohol and episodically has gotten in trouble while intoxicated her GED score is 15 her PHQ-9 is 19 she reports she takes Ambien to help her sleep and Ativan p.r.n. for anxiety she works full-time she has never had side effects from the Ativan or Ambien she reports she sleeps well with the Ambien. Past Psychiatric History: none Subjective Subjective Subjective Medication Compliance: Yes Review of Systems Medical Review of Systems: unchanged Mental Status Exam Mental Status Exam Patient Appearance: Well Grooomed Patient Orientation: Person, Place, Time and Situation Level of Consciousness: Awake and Appropriate Patient Behavior: Appropriate and Cooperative Mood Description: Sad Affect Description: Sad Patient Cognition Impaired: No Ability to Follow Directions: Good Speech Pattern: Clear and Appropriate Memory Description: Intact Hallucinations: None Delusions: Not Present Thought Process: Intact Thought Content: positive for Intact Judgement: Good Assessment and Plan Assessment & Plan (1) Major depressive disorder, single episode with anxious distress: Status: Acute Code(s): F32.9 - Major depressive disorder, single episode, unspecified Plan Recommend that patient start Wellbutrin XL 150 in the morning discussed possible side effects risks versus benefits and discussed alternatives also recommend the patient start magnesium glycinate 200 mg 1-2 a day for mood, B 50 complex 1 daily for energy mood , and increase protein intake in her diet take vitamin-D but not over 2000 IU daily Return in 1 month for follow-up Medications: New bupropion HCl XL (Wellbutrin XL) 150 mg PO QAM 30 tabs 1RF Refilled lorazepam 0.5 mg PO DAILY PRN 30 tabs 1RF anxiety anxiety attacks zolpidem Try taking initially half a tablet or 5 mg at bedtime , as needed for insomnia 10 mg PO BEDTIME PRN 30 tabs 1RF sleep G47.00 - Insomnia, unspecified Counseling and coordination of Care Pt. Self Management counseling: Exercise, Maintenance-social rhythm, Mod caffeine/ETOH intake, Nutrition education and improvement, Sleep hygiene, Behavior activation and Problem solving Medication management counseling: Effectiveness, Side effects, Dosing range, Duration, Drug interaction and Adherence Diagnosis and Prognosis Counseling: Accuracy of diagnosis, Prognosis over time, Impact of diagnosis on life functions, Impact of family relationship, Problematic behaviors secondary to diagnosis and Adequacy of current interventions Details: I spent 70 minutes reviewing the record, seeing the patient and documenting in the medical record. Counseling provided to the patient/caregiver as outlined below. Addressed patient/caregiver concerns regarding current medication regime including effective adherence. Addressed patient/caregiver concerns regarding diagnosis and prognosis including accuracy of diagnosis, prognosis over time, impact of diagnosis. Addressed patient/caregiver concerns regarding impact of recent stressors. [facility] Medical History Fatigue Loud snoring Excessive daytime sleepiness Sleeping difficulties Depression with anxiety Right upper quadrant abdominal pain COVID-19 vaccination declined Refused influenza vaccine Annual visit for general adult medical examination with abnormal findings H. 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 Substance History: None Trauma History: None Coding Level of Care Code Psych Diag Eval w/Med (84740) Diagnoses Major depressive disorder, single episode with anxious distress F32.9
== END 2024-11-17 17:13 | disposition home or self-care (01) ==
LOC: HO.HOP 16:02
PROVIDERS: PCP Internal Medicine; Visit Provider Clinical Nurse Specialist Psychiatric/Mental Health
DX: F32.9 Major depressive disorder, single episode, unspecified (principal)
CPT/HCPCS: 90792

== ENCOUNTER → 2024-11-17 16:02 | Outpatient (BNVA) | payer OTHER, SELFPAY | PROVIDERS: PCP Internal Medicine; Visit Provider Clinical Nurse Specialist Psychiatric/Mental Health | DX: F32.9 Major depressive disorder, single episode, unspecified (principal); Z71.89 Other specified counseling | CPT/HCPCS: 90792 ==

== ENCOUNTER 2024-12-31 16:31 | Outpatient (AMB) | payer OTHER, SELFPAY ==
--- NOTE | 2024-12-31 16:38 | MHC.OFFVISPS ---
Intake Intake Visit Reasons: F/U CONSULTATION Puddler Helper Required: No Allergies No Known Allergies Allergy (Verified 09/15/24 09:10) Medication List - Last Reconciled 12/31/24 by Nory Green APRN azelaic acid 15% 1 appl topical BID bupropion HCl XL (Wellbutrin XL) 150 mg PO QAM doxycycline monohydrate 50 mg PO BID Levoxyl (levothyroxine) 100 mcg PO DAILY 90 days NS lifitegrast 5% (Xiidra) 1 drp ophthalmic (eye) BID linaclotide (Linzess) 290 mcg PO QAM 30 days lorazepam 0.5 mg PO DAILY PRN sulfacetamide sodium-sulfur 10-5 % (w/v) topical BID PRN zolpidem 10 mg PO BEDTIME PRN HPI- Psychiatric Chief Complaint: F/U CONSULTATION HPI Narrative: pt couldn't tolerate wellbutrin; felt edgy and anxious with it. she stopped after a few doses. she continue to struggle with depression and anxiety; always worrying; trouble relaxing; low mood, poor appetite, low motivation and interest in activities. trouble concentrating. she also reports passive SI with no plan and no intent; says she owuld not hurt herself because of her children. she often worries about her childrens wellbeing. PHQ9=14 and GAD7=14 Past Psychiatric History: none Subjective Subjective Subjective Side effects from medications: Yes Mental Status Exam Mental Status Exam Patient Appearance: Well Grooomed and Appropriate Patient Orientation: Person, Place, Time and Situation Level of Consciousness: Awake and Appropriate Patient Behavior: Appropriate, Cooperative and Good Eye Contact Mood Description: Depressed, Anxious and Sad Affect Description: Depressed and Anxious Patient Cognition Impaired: No Ability to Follow Directions: Good Speech Pattern: Clear and Appropriate Memory Description: Intact Hallucinations: None Delusions: Not Present Thought Process: Intact and Rumination Thought Content: positive for Intact and positive for Preoccupation Judgement: Good Assessment and Plan Assessment & Plan (1) Major depressive disorder, single episode with anxious distress: Status: Acute Code(s): F32.9 - Major depressive disorder, single episode, unspecified (2) JAKE (generalized anxiety disorder): Status: Acute Code(s): F41.1 - Generalized anxiety disorder Plan stop wellbutrin start prozac use ativan prn ambien 10mg at bedtime prn Medications: New fluoxetine (Prozac) 10 mg PO DAILY 30 caps 2RF Refilled lorazepam 0.5 mg PO DAILY PRN 30 tabs 1RF anxiety anxiety attacks zolpidem Try taking initially half a tablet or 5 mg at bedtime , as needed for insomnia 10 mg PO BEDTIME PRN 30 tabs 1RF sleep G47.00 - Insomnia, unspecified Discontinued bupropion HCl XL (Wellbutrin XL) Discontinued Reason: Doctor's Order 150 mg PO QAM 30 tabs 1RF Counseling and coordination of Care Pt. Self Management counseling: Maintenance-social rhythm, Mod caffeine/ETOH intake, Nutrition education and improvement, Sleep hygiene, General coping skills and Problem solving Medication management counseling: Effectiveness, Side effects, Dosing range, Duration, Drug interaction and Adherence Diagnosis and Prognosis Counseling: Accuracy of diagnosis, Prognosis over time, Impact of diagnosis on life functions, Impact of family relationship, Problematic behaviors secondary to diagnosis and Adequacy of current interventions Details: I spent 35 minutes reviewing the record, seeing the patient and documenting in the medical record. Counseling provided to the patient/caregiver as outlined below. Addressed patient/caregiver concerns regarding current medication regime including effective adherence. Addressed patient/caregiver concerns regarding diagnosis and prognosis including accuracy of diagnosis, prognosis over time, impact of diagnosis. Addressed patient/caregiver concerns regarding impact of recent stressors. [facility] Medical History Fatigue Loud snoring Excessive daytime sleepiness Sleeping difficulties Depression with anxiety Right upper quadrant abdominal pain COVID-19 vaccination declined Refused influenza vaccine Annual visit for general adult medical examination with abnormal findings H. 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 Substance History: None Trauma History: None Coding Level of Care Code Est Pt Level 4 (17494) Diagnoses Major depressive disorder, single episode with anxious distress F32.9 JAKE (generalized anxiety disorder) F41.1
== END 2024-12-31 17:10 | disposition home or self-care (01) ==
LOC: HO.HOP 16:31
PROVIDERS: PCP Internal Medicine; Visit Provider Clinical Nurse Specialist Psychiatric/Mental Health
DX: F32.9 Major depressive disorder, single episode, unspecified (principal); F41.1 Generalized anxiety disorder
CPT/HCPCS: 99214

== ENCOUNTER → 2025-01-07 14:24 | Outpatient (BNVA) | payer OTHER, SELFPAY | PROVIDERS: PCP Internal Medicine; Visit Provider Physician Assistant Medical | DX: S40.011A Contusion of right shoulder, initial encounter (principal); S46.911A Strain of unspecified muscle, fascia and tendon at shoulder and upper arm level, right arm, initial encounter; S39.012A Strain of muscle, fascia and tendon of lower back, initial encounter; S80.12XA Contusion of left lower leg, initial encounter; S80.11XA Contusion of right lower leg, initial encounter; W10.8XXA Fall (on) (from) other stairs and steps, initial encounter | CPT/HCPCS: 73030; 99203 ==

== ENCOUNTER 2025-03-04 16:36 | Outpatient (AMB) | payer OTHER, SELFPAY ==
--- OUTSIDE RECORDS SUMMARY | 2025-03-04 16:37 | XMS_ITS | Data Portability ---
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 Plan of Treatment Reminders Order Date Submit Date Provider Last Modified By Organization Details Last Modified Time Details Appointments None recorded . Lab pap test, thinprep , cervical 2022 023 [facility] (Centralized Electronic Ordering - All Locations), Patient Can Go To The Location Of Their Choice, [facility] 3 07:30:07 pap test, thinprep , cervical 2021 022 [facility], Cytopathology Service, [address] [place], [address], 2 07:52:32 pap test, thinprep , cervical 2019 020 [facility], Cytopathology Service, [address] [place], [address], 0 07:54:31 Referral None recorded . Procedures None recorded . Surgeries None recorded . Imaging MAMMO, screenin g, digital, bilatera l - Breast Aspirati on and/or Biopsy if needed 2022 023 [facility]), [address], [place], [address], 4 07:27:06 MAMMO, screenin g, digital, bilatera l 2021 022 [facility]), [address], [place], [address], 4 07:24:15 MAMMO, screenin g, digital, bilatera l 2019 020 [facility]), [address], [place], [address], 2 07:35:11 Medication Orders clindamy deejay 2 % vaginal cream 2019 020 [facility], [address] [place], [address], 0 13:07:27 fluconaz ole 150 mg tablet 2019 020 [facility], [address] [place], [address], 2 11:28:34 Patient TargetsNo targets recorded. Patient Instructions Encounter Date Encounter Id Patient Instructions Last Modified By Organization Details Last Modified Time 01/19/2020 [id number] bacterial vaginosis: care instructions Not available 01/19/2020 [...] on the line. I was at [address] [facility], [address], [place], [place], at the time of the call. [...] evaluation. 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 Not available 09/19/2020 15:11:23 06/27/2022 [id number] learning about healthy weight [email or web address] Not available 06/27/2022 11:51:10 She is here [...] the breast. Not available 06/27/2022 11:52:29 07/18/2023 [id number] learning about healthy weight Not available 07/18/2023 [...] the breast. Not available 07/18/2023 13:08:40 02/06/2024 [id number] This visit is a phone telehealth visit. The patient consented to the visit by phone. The patient was at home at the time of the call and the provider and patient were the only people on the line. I was at [address] [place] [address], [address], [place], [place], at the time of the call. [...] 09/19/2020 pap test, thinp rep, cervi zulema [email or web address] ThinP rep Pap, Image d: NEGAT ANDREA FOR SQUAM OUS INTRA EPITH ELIAL MAMTA Barbosa AND ERI STUBBS . Paola palomo , CT( CP) (Case elect danika multani d 09 21 2020) ADEQU ACY: Satis facto ry Endoc ervic al/tr ansfo rmati on zone compo nent prese nt. SOURC E: ThinP rep Pap HPV IF ASCUS , Cervi zulema, Image d CLINI ZULEMA INFOR MATIO N: HPV If Diagn osis of ASCUS . LPS NEG. Z12.4 Not Available [facility], Cytopathology Service [address] [place], [address], 09/21/2020 12:21:05 06/27/20 22 06/27/2022 PAP1C ASE [id number] ThinP rep Pap, Image d: NEGAT ANDREA [...] . LPS neg, [z01. 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 PAP TEST, CERVI ZULEMA: Final Diagn osis: [...] Histo ry: not avail able Ancil chance Nicholas munson: HPV (ASCU S) Case image d by the ThinP rep Tana boone with katt garcia or danilo head Perfo rmed at [facility] ate Refer ence [facility] Cyt[facility], [address] [place] Clini zulema Histo ry (othe r): Z01.4 19, routi ne scree n, LPS neg Phone #: [phone], On-Ca ll Patho logis t: [id number] Not Available [facility] (Centralized Electronic Ordering - All Locations) Patient Can Go To The Location Of Their Choice, [id number] 07/24/2023 13:28:43 07/11/20 23 07/11/2023 MAMMO , scree francis, digit al, bilat eral No observ ation record ed. [facility] [address], [place], [address], 07/12/2023 07:58:51 Result Notes None recorded. Problems Name Problem SNOMED Code Status Onset Date Resolution Date Notes Provider Name and Address Organization Details Recorded Time Hypothyroi dism 19713039 Active 2015 Myriam oneal [place] - [facility], 6 14:14:45 Dysfunctio nal uterine bleeding Active 2015 Dixie Payne MD [address], [place], [address], [place] [facility], 6 14:59:08 Perimenopa usal disorder 969719811 Active 2015 Dixie Payne MD [address], [place], [address], [place] [facility], 6 14:59:15 No consent - influenza immunizati on 319316990 Active 2019 she identifies as an anti-vaxx er although her children are vaccinated for all but influenza. Dixie Payne MD [address], [place], [address], [place] - [facility], 0 15:11:01 Screening for malignant neoplasm of rectum Active 2021 Dixie Payne MD [address], [place], [address], [place] - [facility], 2 11:50:55 Menopausal syndrome 783079101 Active 2023 Dixie Payne MD [address], [place], [address], [place] [facility], 4 12:28:03 Alcohol dependence 63109071 Active 2023 Dixie Payne MD [address], [place], [address], [place] [facility], 4 12:50:32 Problem Notes None recorded. Procedures Surgical History Date Name Laterality Status Provider Name and Address Organization Details Recorded Time 3 Most Recent Mammogram completed Katherine Fermin in [facility], 07/18/2023 12:56:39 4 Tubal Ligation completed Myriam loza in [facility], 08/21/2016 14:21:23 6 Other completed Myriam Patricio s in [facility], 08/21/2016 14:22:41 9 Breast Implants completed Dixie Payne MD [address], [place], [address], [place] [facility], 09/19/2020 15:07:02 Imaging Results Imaging Date Name Status LastModified by [facility] Details LastModified Time 07/11/2023 MAMMO, screening, digital, bilateral completed [facility] [address], [place], [address], 07/12/2023 07:58:51 Procedure Notes None recorded. Medical [...] completed Not Available Not Available Not Available P[place]ling Thyroid 60 mg tablet 08/21 completed Not [...] completed Not Available Not Available Not Available [place] Thyroid 90 mg tablet 08/21 completed Not [...] Not Available Not Available No t Available [place] Thyroid 15 mg tablet 08/21 completed Not [...] completed Not Available Not Available Not Available CUSTOMS EXAMINER Thyroid 120 mg tablet 07/09 completed Not Available Not Available Not Available Vitals Date Recorded Body height Body mass index (BMI) Body weight Body temperature Heart rate Systolic blood pressure Diastolic blood pressure Provider Name and Address Organization Details Last Updated DateTime 0 156.21 cm 27 kg/m2 40912.6 1 g 97.3 [degF] 76 /min 153 mm[Hg] 78 mm[Hg] Katherine Fermin in [facility], 0 14:44:19 Date Recorded Body weight Body mass index (BMI) Body height Heart rate Systolic blood pressure Diastolic blood pressure Provider Name and Address Organization Details Last Updated DateTime 2 21696.6 4 g 23.4 kg/m2 156.21 cm 79 /min 147 mm[Hg] 68 mm[Hg] Katherine Fermin in [facility], 2 11:27:34 Date Recorded Body weight Body mass index (BMI) Body height Heart rate Systolic blood pressure Diastolic blood pressure Provider Name and Address Organization Details Last Updated DateTime 3 88218.3 4 g 25.8 kg/m2 156.21 cm 67 /min 123 mm[Hg] 74 mm[Hg] Katherine Fermin in [facility], 3 12:55:44 Date Recorded Body height Provider Name an d Address Organization Details Last Updated DateTime 02/06/2024 156.21 cm Chayo joseph in [facility], 02/06/2024 10:27:35 Social History Question Answer Notes LastModified by Organizat ion Details LastModified Time Tobacco Smoking Status Never Smoker Myriam oneal [place] - [facility], 08/21/2016 14:16:27 What Is Your Level Of Caffeine Consumption? Moderate Information not available 07/18/2023 In The 14 Days Before Symptom Onset, Have You Had Close Contact With A Laboratory-confirm ed COVID-19 While That Case Was Ill? No Information n ot available 06/27/2022 In The 14 Days Before Symptom Onset, Have You Had Close Contact With A Person Who Is Under Investigation For COVID-19 While That Person Was Ill? No Information not available 06/27/2022 Have You Been To An Area Known To Be High Risk For COVID-19? No Information not available 06/27/2022 What Type Of Diet Are You Following? REGULAR Information n ot available 08/21/2016 Which Illicit Or Recreational Drugs Have You Used? No Information not available 08/21/2016 Do You Reside In Or Have You Traveled To An Area Where Ebola Virus Transmission Is Active? No Information not available 08/21/2016 Education 2 Year College Information not available 08/21/2016 Who Is Your Employer? [employer] Information not available 06/27/2022 How Many Days In The Past Year Have You Had A Heavy Drinking Consumption (4+ Female, 5+ Male)? 52 Information no t available 08/21/2016 Are There Any Guns Present In Your Home? No Information not available 06/27/2022 High Number Of Sexual Partners Yes Information not available 08/21/2016 To Which Gender Do You Self-identify? Female Information n ot available 08/21/2016 Marital Status Informatio n not available 08/21/2016 What Was The Date Of Your Most Recent Tobacco Screening? 02/06/2024 Information not available 02/06/2024 What Is Your Relationship Status? Information not available 06/27/2022 Are You Sexually Active? Yes Information not available 08/21/2016 How Much Tobacco Do You Smoke? No Information not available 08/21/2016 General Stress Level Low Information not available 02/11/2018 How Many Years Have You Smoked Tobacco? 0 Information not available 01/11/2017 Have You Recently (within The Last 12 Weeks, Or During A Current ) Traveled To Or Lived In A Zika-affected Area? No Information not available 08/21/2016 How Many Days In The Past Year Have You Consumed 4 Or More Drinks? 15 Information not available 02/06/2024 Sex: Female Functional Status Question Answer Note LastModified by Organizat ion Details LastModified Time Do you use any illicit or recreational drugs? No Information not available 06/27/2022 Do you or have you ever used any other forms of tobacco or nicotine? No Information not available 06/27/2022 What is your level of alcohol consumption? Moderate one glass at night Information not available 08/21/2016 Do you or have you ever used smokeless tobacco? Never used smokeless tobacco Information not available 07/09/2019 Are you currently employed? Yes Information not available 06/27/2022 What is your occupation? [email or web address] Information not available 06/27/2022 Do you or have you ever used e-cigarettes or vape? Never used electronic cigarettes Information not available 07/09/2019 What is your exercise level? Moderate Information not available 02/11/2018 Mental Status Question Answer Note LastModified by Organization D etails LastModified Time Do you feel stressed (tense, restless, nervous, or anxious, or unable to sleep at night)? [id number] Information not available 06/27/2022 Family History Relationship Description Onset Age of this Age Resolved Age Notes LastModified by Organization Details LastModified Time Father Disease of liver [email or web address] Not available 2015 14:15:43 Father Diabetes mellitus [email or web address] Not available 2015 14:16:03 Medical History Condition Response Anesthesia complications N High Blood Pressure N Candidate for MyRisk panel N Autoimmune Condition N Thyroid Problems Y Kidney or Bladder Problems N GI Problems Y Lung Disease N Depression Y Defects or Inherited Disease N History of Ovarian Cancer N Anemia N History of Breast Cancer N STONE exposure N BRCA testing in past N Osteopenia N Psychiatric Illness N Anxiety Disorder N Diabetes N Arthritis N Headaches or Migraines N Infertility N Asthma N History of Cancer N Endometriosis N Hepatitis N Heart Disease N Hypertension [...] SNOMED-CT Code Diagnosis ICD10 Code Diagnosis Note [id number] MD DIXIE Pierce MD [address] [place] [address] [place] [address] 08/21/2016 13:48:12 08/21/2016 16:06:00 Dysfunctional uterine bleeding 57884715 N93.8 Perimenopa usal disorder 011425114 N95.9 [id number] MD DIXIE Pierce MD [address] [place] [address] 01/11/2017 10:10:53 01/11/2017 13:35:44 Specialized medical examination 81552990 Z01.419 Screening for malignant neoplasm of rectum 793267328 Z12.12 Screening mammography 24 038582 Z12.31 [id number] MD DIXIE Pierce MD [address] [place] [address],[facility] [place] [address] 02/11/2018 14:33:25 02/13/2018 08:31:41 Specialized medical examination 54566261 Z01.419 Screening for malignant neoplasm of rectum 250641933 Z12.12 Screening mammography 24 863904 Z12.31 Amenorrhea 64366855 N91. 2 [id number] MD DIXIE Pierce MD [address] [place] [address] 07/09/2019 14:38:46 07/09/2019 16:05:22 Specialized medical examination 07004382 Z01.419 Screening mammography 24 496347 Z12.31 [id number] MD DIXIE Pierce MD [address] [place] [address] [place] [address] 01/19/2020 13:54:32 01/19/2020 14:31:30 Vulvitis 68758697 N76.2 B96.89 Candidal vulvovaginitis 42079554 B37.3 [id number] MD DIXIE Pierce MD [address] [place] [address],[place] [address] 09/19/2020 14:40:59 09/19/2020 16:04:33 Specialized medical examination 73725492 Z01.419 Screening mammography 24 405285 Z12.31 [id number] MD DIXIE Pierce MD [address] [facility],[place] [address] 06/27/2022 11:24:47 06/27/2022 11:56:24 Specialized medical examination 74354926 Z01.419 Screening mammography 24 433086 Z12.31 [id number] MD DIXIE Pierce MD [address] [facility],[place] [address] 07/18/2023 12:49:27 07/19/2023 13:16:30 Specialized medical examination 69710240 Z01.419 Screening for malignant neoplasm of rectum 706075728 Z12.12 Screening mammography 24 243618 Z12.31 [id number] MD DIXIE Pierce MD [address] [place] [address], [place] [address] 02/06/2024 10:13:45 02/06/2024 14:20:40 Menopausal syndrome 518058318 N95.9 Alcohol dependence 40848 003 F10.20 Health Concerns Section Related Observation LastModified by Organization Detai ls LastModified Time None Recorded Concern Status LastModified by Organization Details LastModified Time None Recorded Advance Directives Directive None Recorded Payers Encounter Date Sequence Insurance Name Policy Number Policy Arora Covered Member ID Arora Member ID Guarantor Name 01/19/2020 1 [facility] [id number] Teo Swanson [id number] Dulce Swanson 09/19/2020 1 [facility] [id number] Teo Swanson [id number] Dulce Swanson 06/27/2022 1 [facility] [id number] Teo Swanson [id number] Dulce Swanson 07/18/2023 1 [facility] [id number] Teo Swanson [id number] Dulce Swanson 02/06/2024 1 [facility] [id number] Teo Swanson [id number] Dulce Swanson Notes Date Note Type Note [...] people on the line. I was at [address] [place] [address], [address], [place], [place], at the time of the call. [...] herbal medications orally. 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 Dixie Payne MD [address] [facility],[address], [place], [address], [employer] - [employer] in [facility], 06/27/2022 11:52:46 07/18/2023 text/html She is [...] 2018.Declines all vaccinations. Dixie Payne MD [address] [facility],[address], [place], [address], [employer] - [employer] in [facility], 07/18/2023 13:08:54 02/06/2024 text/html This visit is a phone telehealth visit. The patient consented to the visit by phone.The patient was at home at the time of the call and the provider and patient were the only people on the line.I was at [address] [facility], [address], [place], at the time [...] 2018.Declines all vaccinations. Dixie Payne MD [address] [facility],[address], [place], [address], [place] [facility], 02/06/2024 12:53:19 OBGyn Episode No OBEpisode recorded.
--- NOTE | 2025-03-04 16:48 | MHC.OFFVISPS ---
Intake Intake Visit Reasons: f/u consultation Brand Executive Required: No Allergies No Known Allergies Allergy (Verified 09/15/24 09:10) Medication List - Last Reconciled 03/04/25 by Nory Green APRN azelaic acid 15% 1 appl topical BID doxycycline monohydrate 50 mg PO BID fluoxetine (Prozac) 10 mg PO DAILY Levoxyl (levothyroxine) 100 mcg PO DAILY 90 days NS lifitegrast 5% (Xiidra) 1 drp ophthalmic (eye) BID linaclotide (Linzess) 290 mcg PO QAM 30 days lorazepam 0.5 mg PO DAILY PRN sulfacetamide sodium-sulfur 10-5 % (w/v) topical BID PRN zolpidem 10 mg PO BEDTIME PRN HPI- Psychiatric Chief Complaint: f/u consultation HPI Narrative: pt is here for follow up re: depression and anxiety. She reports improvement. Her PHQ9=11 and her GAD7=6. She reports passive SI with no plan or intent several times a week; She reports she would never act on these thoughts due to her children. she reports the passive SI is usually in response to high stress and fatigue. she works 2 jobs. she worries about her 16 yr old son who just started driving; she has a conflicted relationship with her daughter who has a one yr old. This causes her to either feel guilty when she sets limits or sad when they argue and are distant. Pt declines an increase in prozac and feels the meds are helping; she says she would like to give them more time. she also declines referral to therapist at this time. Past Psychiatric History: none Subjective Subjective Subjective Medication Compliance: Yes Side effects from medications: No Review of Systems Medical Review of Systems: unchanged Mental Status Exam Mental Status Exam Patient Appearance: Well Grooomed and Appropriate Patient Orientation: Person, Place, Time and Situation Level of Consciousness: Awake and Appropriate Patient Behavior: Appropriate Mood Description: Sad Affect Description: Sad Patient Cognition Impaired: No Ability to Follow Directions: Good Speech Pattern: Clear and Soft-Spoken Memory Description: Intact Hallucinations: None Delusions: Not Present Thought Process: Intact and Goal Oriented Thought Content: positive for Intact and positive for Goal Oriented Judgement: Good Assessment and Plan Assessment & Plan (1) Major depressive disorder, single episode with anxious distress: Status: Acute Code(s): F32.9 - Major depressive disorder, single episode, unspecified (2) JAKE (generalized anxiety disorder): Status: Acute Code(s): F41.1 - Generalized anxiety disorder Plan continue meds as per below Medications: Refilled fluoxetine (Prozac) 10 mg PO DAILY 90 caps 1RF zolpidem Try taking initially half a tablet or 5 mg at bedtime , as needed for insomnia 10 mg PO BEDTIME PRN 30 tabs 3RF sleep G47.00 - Insomnia, unspecified lorazepam 0.5 mg PO DAILY PRN 30 tabs 1RF anxiety anxiety attacks Counseling and coordination of Care Pt. Self Management counseling: Exercise, Maintenance-social rhythm, Mod caffeine/ETOH intake, Nutrition education and improvement, Sleep hygiene and General coping skills Medication management counseling: Effectiveness, Side effects, Dosing range, Duration, Drug interaction and Adherence Diagnosis and Prognosis Counseling: Accuracy of diagnosis, Prognosis over time, Impact of diagnosis on life functions, Impact of family relationship, Problematic behaviors secondary to diagnosis and Adequacy of current interventions Details: I spent 40 minutes reviewing the record, seeing the patient and documenting in the medical record. Counseling provided to the patient/caregiver as outlined below. Addressed patient/caregiver concerns regarding current medication regime including effective adherence. Addressed patient/caregiver concerns regarding diagnosis and prognosis including accuracy of diagnosis, prognosis over time, impact of diagnosis. Addressed patient/caregiver concerns regarding impact of recent stressors. [facility] Medical History Fatigue Loud snoring Excessive daytime sleepiness Sleeping difficulties Depression with anxiety Right upper quadrant abdominal pain COVID-19 vaccination declined Refused influenza vaccine Annual visit for general adult medical examination with abnormal findings H. 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 Substance History: None Trauma History: None Coding Level of Care Code Est Pt Level 4 (93542) Diagnoses Major depressive disorder, single episode with anxious distress F32.9 JAKE (generalized anxiety disorder) F41.1
== END 2025-03-04 17:09 | disposition home or self-care (01) ==
LOC: HO.HOP 16:36
PROVIDERS: PCP Internal Medicine; Visit Provider Clinical Nurse Specialist Psychiatric/Mental Health
DX: F32.9 Major depressive disorder, single episode, unspecified (principal); F41.1 Generalized anxiety disorder
CPT/HCPCS: 99214

== ENCOUNTER → 2025-03-04 16:36 | Outpatient (BNVA) | payer OTHER, SELFPAY | PROVIDERS: PCP Internal Medicine; Visit Provider Clinical Nurse Specialist Psychiatric/Mental Health ==

== ENCOUNTER 2025-05-17 10:34 | Outpatient (AMB) | payer OTHER, SELFPAY ==
--- OUTSIDE RECORDS SUMMARY | 2025-05-17 11:21 | XMS_ITS | Patient Health Record ---
Author Organization [facility] Address [address] [place] [address] Care Team Providers Care Swatcher Name Role Phone Mook Bradford Primary Care Provider Harman Sanchez Jr Unavailable Reason For Referral No Information Medications Medication SIG (Take, Route, Fr equency, Duration) Notes Start Date End Date Status MoviPrep 100 GM as directed before c olonoscopy Orally for 1 dose 01/06/2014 Active [place] Thyroid 120mg Active Problems Problem Type SNOMED Code ICD Code Onset Dates Problem Status W/U Status Risk Notes Problem Constipation (564.00) Active confirmed Plan Of Treatment Future Test Test Name Order Date COLONOSCOPY 01/06/2014 Insurance Providers Payer Name Payer Address Payer Phone Subscriber Number Group Number Insured Name Patient Relationship to Insured Coverage Start Date Coverage End Date [employer] [address] [place] [address] [id number] FREIDA SHARPE Self - patient is the insured Medical (General) History Medical History History ICD Code hypothyroidism Surgical History Surgery Date(Month/Year) breast augmentation thyroid
--- NOTE | 2025-05-17 12:22 | MHC.OFFWIV ---
Intake Vital Signs 05/17/25 12:25 Height 5 ft 1 in Weight 143 lb BMI 27.0 BP 104/70 Blood Pressure Location Lt brachial Position Sitting Pulse 69 Pulse Source Pulse Oximeter Temp 98.2 F Temp Source Oral Pulse Oximetry (%) 97 Oxygen Delivery Method Room Air Intake Visit Reasons: EP Sore throat, ear pain [phone] Intake Note: presents with bilateral ear pain, sore throat, pain with swallowing for about 2 weeks Patient Tobacco Use Status: Never used Tobacco Allergies No Known Allergies Allergy (Verified 05/17/25 12:31) Do you need a note to return to daycare/school/sports/work: Yes HPI HPI Comments History of Present Illness Details History of Present Illness - The patient is a 55-year-old female presenting with throat pain and swelling. - Throat pain and swelling have been present for two weeks, with worsening symptoms last night despite home remedies. - Reports congestion and snoring, denies green nasal discharge, and has occasional coughing. - She has not tried anything for her symptoms. - No history of smoking or inhaler use. - She denies sick contacts or travel. - She denies fever, chills, CP, SOB, abd pain, n/v/d. Physical Exam General: Cooperative, healthy appearing, comfortable, no acute distress and well developed Ears: Hearing grossly normal bilaterally Nose: Clear mucosa Face and sinus: Normal facial exam. No sinus tenderness noted. Throat: Oropharynx is pink with no exudates. Uvula is erythematous and swollen, midline. Tonsils normal size with no exudates. Tongue is midline. Neck: Normal visual inspection and Yes full ROM. Large tonsillar lymph nodes present bilaterally. Respiratory: Normal respiratory effort and able to speak in complete sentences. Clear to auscultation bilaterally. No w/r/r. Cardiovascular: Regular rate and rhythm. Normal S1 and S2. No m/r/g noted. Skin: No rashes or lesions noted, Patient was informed and verbally consented to the use of an ambient scribe for clinic note documentation during this visit. [facility] Medical History Fatigue Loud snoring Excessive daytime sleepiness Sleeping difficulties Depression with anxiety Right upper quadrant abdominal pain COVID-19 vaccination declined Refused influenza vaccine Annual visit for general adult medical examination with abnormal findings H. 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 Cognitive needs: No Hearing needs: No Vision needs: Yes Review of Systems Const All systems reviewed & are unremarkable except as noted in HPI and below Physical Exam Vital Signs: Last Vital Signs Temp 98.2 F 05/17/25 12:25 Pulse 69 05/17/25 12:25 BP 104/70 05/17/25 12:25 Pulse Ox 97 05/17/25 12:25 Oxygen Delivery Method Room Air 05/17/25 12:25 BMI result Body Mass Index 27.0 Results AMB Rapid Strep AMB Rapid Strep Negative Last Edit by Kirstin Banerjee MA on 05/17/25 12:37 Results Reviewed Results Reviewed: Laboratory Last Values Strep Scn Rapid Clinic Negative 05/17/25 12:35 Assessment & Plan Assessment & Plan (1) Sore throat: Code(s): J02.9 - Acute pharyngitis, unspecified Plan Most likely strep vs uvulitis vs viral illness Rapid was negative Plan - Antibiotics prescribed for uvulitis and swollen tonsils, despite negative strep test. - prednisone burst for 5 days - salt water gargles - tylenol or motrin as needed for pain - Advise monitoring for symptom progression or new symptoms. Orders: Orders AMB Rapid Strep Screen 05/17/25 Z13.9 - Encounter for screening, unspecified Medications: New prednisone 40 mg (2 x 20 mg) PO DAILY 10 tabs 0RF 5 days amoxicillin-pot clavulanate 875-125 mg 1 tab PO Q12H 14 tabs 0RF 7 days Coding Level of Care Code Est Pt Level 3 (94908) Diagnoses Sore throat J02.9
[2025-05-17 12:25] VITALS: BP 104/70; PULSE 69; TEMP 36.8; O2SAT 97; BMI 27.0
== END 2025-05-17 13:05 | disposition home or self-care (01) ==
PROVIDERS: PCP Internal Medicine; Visit Provider Physician Assistant Medical
DX: Z13.9 Encounter for screening, unspecified (principal)

== ENCOUNTER → 2025-05-17 10:34 | Outpatient (BNVA) | payer OTHER, SELFPAY | PROVIDERS: PCP Internal Medicine; Visit Provider Physician Assistant Medical | DX: H92.03 Otalgia, bilateral (principal); J02.9 Acute pharyngitis, unspecified | CPT/HCPCS: 87880 ==

== ENCOUNTER 2025-06-01 09:26 | Outpatient (AMB) | payer OTHER, SELFPAY ==
[2025-06-01 09:32] VITALS: BP 138/84; PULSE 74; TEMP 37; O2SAT 97; BMI 26.8
--- NOTE | 2025-06-01 09:32 | MHC.OFFWIV ---
Intake Vital Signs 06/01/25 09:32 Height 5 ft 1 in Weight 142 lb BMI 26.8 BP 138/84 Blood Pressure Location Lt brachial Position Sitting Pulse 74 Pulse Source Pulse Oximeter Temp 98.6 F Temp Source Oral Pulse Oximetry (%) 97 Oxygen Delivery Method Room Air Intake Visit Reasons: EP Throat pain even after abx. 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 - The patient reports a history of throat and mouth irritation, initially treated 05/17 with prednisone and Augmentin for suspected strep throat, which was negative. - The patient describes white patches on the tongue, a dry mouth, and occasional sores, consistent with oral candidiasis, which she has had previously. Was treated for 7 days of fluconazole for stomach eula infection last year. - The symptoms have recurred, with previous episodes treated with fluconazole, which provided relief. - The patient has used saltwater rinses to manage symptoms, which provide temporary relief. - The patient has a history of chronic skin condition (rosacea) requiring long-term antibiotic use, contributing to yeast overgrowth last yr. Physical Exam General: Cooperative, healthy appearing, comfortable, no acute distress and well developed Orientation: Patient oriented x3 Limitations: No limitations Head: Normal to inspection Ears: Hearing grossly normal bilaterally Nose: Normal External nose present Face and sinus: Normal facial exam Mouth: Dry oral mucosa with bright erythema on the tongue, posterior oropharynx erythema, no white patches noted Eyes: Appearance normal, both eyes and all related structures Neck: Normal visual inspection and Yes full ROM Respiratory: Normal respiratory effort and able to speak in complete sentences. Skin: no rashes or lesions noted Neuro: Patient oriented x3 Extremities: moving all extremities normally PFSH Medical History Fatigue Loud snoring Excessive daytime sleepiness Sleeping difficulties Depression with anxiety Right upper quadrant abdominal pain COVID-19 vaccination declined Refused influenza vaccine Annual visit for general adult medical examination with abnormal findings H. 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 Cognitive needs: No Hearing needs: No Vision needs: Yes Review of Systems Const All systems reviewed & are unremarkable except as noted in HPI and below Physical Exam Vital Signs: Last Vital Signs Temp 98.6 F 06/01/25 09:32 Pulse 74 06/01/25 09:32 BP 138/84 06/01/25 09:32 Pulse Ox 97 06/01/25 09:32 Oxygen Delivery Method Room Air 06/01/25 09:32 BMI result Body Mass Index 26.8 Assessment & Plan Assessment & Plan (1) Oral thrush: Code(s): B37.0 - Candidal stomatitis Plan: Plan Patient was informed and verbally consented to the use of an ambient scribe for clinic note documentation during this visit Oral Candidiasis - Initiate treatment with clotrimazole lozenges, five times daily for seven days. - If symptoms persist, consider fluconazole as a follow-up treatment. I told pt I would call in 2 tablets for her - she does not need to return. Medications: New clotrimazole 10 mg mucous membrane .5 times per day 35 tabs 0RF 7 days Coding Level of Care Code Est Pt Level 3 (40258) Diagnoses Oral thrush B37.0
--- OUTSIDE RECORDS SUMMARY | 2025-06-01 10:29 | XMS_ITS | Patient Health Record ---
Author Organization [facility] Address [address] [place] [address] Care Team Providers Care Quality Control Engineering Technician Name Role Phone Mook Bradford Primary Care Provider Harman Sanchez Jr Unavailable Reason For Referral No Information Medications Medication SIG (Take, Route, Fr equency, Duration) Notes Start Date End Date Status MoviPrep 100 GM as directed before c olonoscopy Orally for 1 dose 01/06/2014 Active [place] Thyroid 120mg Active Problems Problem Type SNOMED Code ICD Code Onset Dates Problem Status W/U Status Risk Notes Problem Constipation (564.00) Active confirmed Plan Of Treatment Future Test Test Name Order Date COLONOSCOPY 01/06/2014 Insurance Providers Payer Name Payer Address Payer Phone Subscriber Number Group Number Insured Name Patient Relationship to Insured Coverage Start Date Coverage End Date [employer] IN[employer]ITY [address] [place] [address] [id number] FREIDA SHARPE Self - patient is the insured Medical (General) History Medical History History ICD Code hypothyroidism Surgical History Surgery Date(Month/Year) breast augmentation thyroid
== END 2025-06-01 10:13 | disposition home or self-care (01) ==
PROVIDERS: PCP Internal Medicine; Visit Provider Physician Assistant
DX: B37.0 Candidal stomatitis (principal)

== ENCOUNTER 2025-06-01 09:26 | Outpatient (REF) | payer OTHER, SELFPAY ==
[2025-06-01 13:55] LABS: Iron 134 mcg/dL (30-160); Percent Iron Saturation 47 % (15-50); Total Iron Binding Capacity 286 mcg/dL (228-428); Unsaturated Iron Binding 152 ug/dL
[2025-06-01 13:56] LABS: Free T4 (Free Thyroxine) 1.15 ng/dL (0.71-1.85); Thyroid Stimulating Hormone 2.29 uIU/mL (0.32-4.0)
[2025-06-01 13:57] LABS: Ferritin 256 ng/mL (10-250)
[2025-06-02 09:00] LABS: Transferrin 253 mg/dL (188-341)
== END 2025-06-01 09:27 | disposition home or self-care (01) ==
LOC: HO.HMGCLDS 09:26
PROVIDERS: Clinical Nurse Specialist Psychiatric/Mental Health; PCP Internal Medicine; Referring Provider Internal Medicine; Visit Provider Physician Assistant
DX: B37.0 Candidal stomatitis (principal); F41.8 Other specified anxiety disorders; E03.9 Hypothyroidism, unspecified; F32.9 Major depressive disorder, single episode, unspecified; R53.83 Other fatigue; Z86.39 Personal history of other endocrine, nutritional and metabolic disease
CPT/HCPCS: 36415; 82306; 82728; 83540; 84439; 84443; 84466

== ENCOUNTER 2025-06-03 14:59 | Outpatient (AMB) | payer OTHER, SELFPAY ==
--- NOTE | 2025-06-03 15:01 | A.OFFVIS_ITS ---
Vital Signs 06/03/25 15:11 Height 5 ft 1 in Weight 142 lb BMI 26.8 BP 128/90 H Blood Pressure Location Rt brachial Position Sitting Pulse 80 Pulse Source Pulse Oximeter Pulse Oximetry (%) 98 Oxygen Delivery Method Room Air Intake Visit Reasons: diarrhea flare up Intake Note: Est pt for mgmt of chronic fecal abn. Recent flare up reported. CC; C.O. constipation + diarrhea intermittently, hx of hemorrhoids which have been exacerbated recently. Occasional BRB per rectum. B/L lower quadrant abd pain. Pt denies any tx at this time for her sx. Pt also reports relatively new onset of dysphagia and GERD. The heartburn itself seems to be less frequent but she is having consistent dysphagia regardless of what she is eating. 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 She took it for 2 or 3 days with absolutely no bowel movement then she did have a bowel movement very delayed on the 3rd or 4th day but had to leave work because of the severe reactive diarrhea. Also, there is problems with the FMLA form because I was out and we will need to redo this and I will attend to this today an e-mail it to the appropriate authority so they know that this is genuine. We will increase her to Linzess 290 micro g and will titrate there depending on affect her side effect. She has quite a high co-pay so will do a return office visit in 6 weeks. I encourage her to use the pt portal for communication. Medications: New linaclotide (Linzess) 290 mcg PO QAM 30 caps 6RF 30 days K59.04 - Chronic idiopathic constipation Discontinued linaclotide (Linzess) Take first thing in the morning with a full glass of water. Discontinued Reason: Doctor's Order 145 mcg PO QAM 30 caps 3RF K58.1 - Irritable bowel syndrome with constipation TODAY'S VISIT [facility] Medical History (Updated 06/03/25 @ 15:38 by SLOANE Gabriel) Chronic idiopathic constipation Fatigue Loud snoring Excessive daytime sleepiness Sleeping difficulties Depression with anxiety Right upper quadrant abdominal pain COVID-19 vaccination declined Refused influenza vaccine Annual visit for general adult medical examination with abnormal findings H. 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 Cognitive needs: No Hearing needs: No Vision needs: Yes Review of Systems Const Denies fatigue, Denies fever(s), Denies night sweats, Denies poor appetite and Denies weight loss ENT Reports Normal hearing present, Denies dental pain, Reports dysphagia, Denies hearing loss, Denies mouth pain, Denies odynophagia, Denies throat swelling, Denies tongue swelling and Reports other (Dentition adequate) Card Reports no additional complaints Resp Reports no additional complaints GI Details: FECAL INCONTINENCE Denies abdominal pain, Denies melena, Denies bloating, Denies hematochezia, Reports constipation, Denies GI cramping, Reports dysphagia, Denies excessive flatus, Denies early satiety, Denies heartburn, Reports diarrhea, Denies nausea, Denies odynophagia, Denies vomiting and Denies hematemesis Skin/Breast Denies pruritus, Denies lesions, Denies rash and Denies jaundice Neuro Reports Normal hearing present and Denies Abnormal speech present Psych Reports anxiety and Reports depression Endo Denies fatigue Aller/Immun Denies throat swelling and Denies tongue swelling Physical Exam Vital Signs: Last Vital Signs Pulse 80 06/03/25 15:11 BP 128/90 H 06/03/25 15:11 Pulse Ox 98 06/03/25 15:11 Oxygen Delivery Method Room Air 06/03/25 15:11 BMI result Body Mass Index 26.8 Const General: cooperative, no acute distress, well developed and well groomed Nutritional Appearance: average body habitus and well nourished Orientation/consciousness: oriented to person, oriented to place and oriented to time Limitations: No language barrier HEENT Head: Yes normocephalic and Yes atraumatic Eyes General: appearance normal, both eyes and all related structures Pupils: Equal, round and reactive pupils present Neck Neck: Yes normal visual inspection and Yes no lymphadenopathy Thyroid: Thyroid normal Resp Effort & Inspection: normal respiratory effort and able to speak in complete sentences Auscultation: clear to auscultation bilaterally Cardio Rate: regular rate Rhythm: regular rhythm Heart sounds: Normal, physiologic split S2 sound present Peripheral pulses: radial pulses present and posterior tibial pulses present GI Inspection: No distended and No Abdominal panniculus present Palpation (GI): Soft to palpation, nontender, no guarding, not rigid and No hepatosplenomegaly present Percussion: Yes normal to percussion Auscultation: normal bowel sounds Rectal Exam - Female: deferred Skin General skin exam: no rashes or lesions noted, turgor normal, skin not dry, no jaundice, No spider nevi and no striae Rashes: no rashes Nails: normal Neuro General: oriented to person, oriented to place and oriented to time Cranial nerves: Yes Equal, round and reactive pupils present and Yes Normal hearing present Speech: No Abnormal speech present Extrem General: Yes normal to inspection, No clubbing, No cyanosis and No edema Psych Appearance: grossly normal and well kempt Mental Status: mental status grossly normal Speech and movement: Normal speech and movement present Affect: Labile affect present, Sad affect present and Irritable affect present Attitude: cooperative Thought process: not confabulating and Perseverating thought process present Thought content: Normal thought content present Insight: Fair insight present (Psych) and Limited insight present (Psych) Judgement: Fair judgement present (Psych) and Limited judgement present (Psych) Assessment & Plan Assessment & Plan (1) Irritable bowel syndrome with both constipation and diarrhea: Code(s): K58.2 - Mixed irritable bowel syndrome Category: Medical (2) Anal sphincter incontinence: Comment: Patient was supposed to have anorectal manometry at [facility]; RECTAL LAXITY NOTED ON LAST SCOPE CAM SINCE SHE HAS FECAL URGENCY R/T THIS AND SHE FEELS SUBJECTIVELY THIS IS THE PROBLEM Code(s): R15.9 - Full incontinence of feces Category: Medical (3) GERD (gastroesophageal reflux disease): Code(s): K21.9 - Gastro-esophageal reflux disease without esophagitis Category: Medical Plan He is presenting today with a new complaint of dysphagia. She had an EGD in 2019 where the esophagus was unremarkable but there was H pylori gastritis. She had a barium swallow in 2020 that was also unremarkable except for GERD. She does not appear to be on any acid reducing therapy at this time. - The patient is a 55-year-old female presenting with constipation and dysphagia. - Alternating between constipation and diarrhea with current constipation persisting for two weeks. - Episodes involve hard stools and ineffective enemas, alongside an embarrassing diarrhea incident at work. - Constipation impairs her ability to function in the mornings, limiting social and occupational activities. - Reports recent swallowing difficulties with both liquids and solids, necessitating excessive chewing. This occurs above the voice box area in the high oropharyngeal area and then again towards the bottom of the ribcage. - Previous diagnostic findings ruled out Crohn's disease; past colonic biopsies and stool tests were negative. - Gastroesophageal Reflux Disease (GERD) was identified during earlier evaluations, but treatment specifics were not discussed. -she is requesting an FMLA be filled out for intermittent absences about twice a month as we did for her last year. -Psychological: Reports feeling depressed due to social embarrassment from gastrointestinal symptoms; no other psychiatric symptoms discussed. PLAN - Initiate a modified barium swallow to assess swallowing difficulties. - Repeat the upper endoscopy to investigate the current status of the gastrointestinal tract. - Pursue anorectal manometry for further analysis of bowel dysfunction through [facility]. - Engage a second gastroenterology consultation WITH 1 OF OUR PHYSICIANS to support ongoing diagnostic and therapeutic endeavors. - Encourage flexible work arrangements given the patient's ongoing challenges with morning symptoms. (to date her workup has included a negative fecal calprotectin, a negative RAST allergy panel, negative GI panel for infectious causes, negative ova and parasite test, no gallstones on ultrasound, a relatively unremarkable upper endoscopy and colonoscopy in 2019 with normal biopsies. She says she has used fiber in the past without good success, we have tried treating the constipation to see if it is the driving process without success, we have tried treating the diarrhea to see if that is the driving underlying process without success. We have been trying to get an anorectal manometry test for quite some time as the patient seems to feel that she can not hold her stools and there was some evidence of rectal laxity during her last colonoscopy. I have referred her again to [facility] since we have been unable to get her in at [facility].) Orders: Orders FL Modified Barium Swallow Today K58.2 - Mixed irritable bowel syndrome EGD - GI Use Only Today K58.2 - Mixed irritable bowel syndrome Coding Level of Care Code Est Pt Level 4 (33855) Diagnoses Irritable bowel syndrome with both constipation and diarrhea K58.2 Anal sphincter incontinence R15.9 GERD (gastroesophageal reflux disease) K21.9 Time Spent (min) 35
--- OUTSIDE RECORDS SUMMARY | 2025-06-03 15:02 | XMS_ITS | Patient Health Record ---
Author Organization 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 Name Role Phone Mook Bradford Primary Care Provider Harman Sanchez Jr Unavailable Reason For Referral No Information Medications Medication SIG (Take, Route, Fr equency, Duration) Notes Start Date End Date Status MoviPrep 100 GM as directed before c olonoscopy Orally for 1 dose 01/06/2014 Active [place] Thyroid 120mg Active Problems Problem Type SNOMED Code ICD Code Onset Dates Problem Status W/U Status Risk Notes Problem Constipation (564.00) Active confirmed Plan Of Treatment Future Test Test Name Order Date COLONOSCOPY 01/06/2014 Insurance Providers Payer Name Payer Address Payer Phone Subscriber Number Group Number Insured Name Patient Relationship to Insured Coverage Start Date Coverage End Date [employer]ITY [address] [place] [address] [id number] FREIDA SHARPE Self - patient is the insured Medical (General) History Medical History History ICD Code hypothyroidism Surgical History Surgery Date(Month/Year) breast augmentation thyroid
[2025-06-03 15:11] VITALS: BP 128/90; PULSE 80; O2SAT 98; BMI 26.8
== END 2025-06-03 15:51 | disposition home or self-care (01) ==
LOC: HO.HGI 14:59
PROVIDERS: PCP Internal Medicine; Visit Provider Nurse Practitioner
DX: K58.2 Mixed irritable bowel syndrome (principal); R15.9 Full incontinence of feces; K21.9 Gastro-esophageal reflux disease without esophagitis
CPT/HCPCS: 99214

== ENCOUNTER 2025-06-28 16:28 | Outpatient (AMB) | payer OTHER, SELFPAY ==
--- NOTE | 2025-06-28 16:45 | MHC.OFFVISPS ---
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 She reports worsening symptoms; she stopped the prozac. Her PHQ9=20 and her GAD7=17. Pt not sleeping well; work is very stressful; she denies abuse of etoh or any other drugs. No medical changes; she does feel she may have menapuse symptoms like brain fog and hot flashes. She reports passive SI but no plan and no intent; denies HI. Past Psychiatric History: none Subjective Subjective Subjective Medication Compliance: Yes Side effects from medications: No Review of Systems Medical Review of Systems: unchanged Mental Status Exam Mental Status Exam Patient Appearance: Well Grooomed and Appropriate Patient Orientation: Person, Place, Time and Situation Level of Consciousness: Awake and Appropriate Patient Behavior: Appropriate, Cooperative and Fatigued Mood Description: Constricted, Depressed and Sad Affect Description: Constricted, Depressed and Sad Patient Cognition Impaired: No Ability to Follow Directions: Good Speech Pattern: Clear and Soft-Spoken Memory Description: Intact Hallucinations: None Delusions: Not Present Thought Process: Intact and Goal Oriented Thought Content: positive for Intact, positive for Goal Oriented and positive for Suicidal Ideation (passive; denies intent or plan and says she would not harm herself because of her children) Judgement: Good Assessment and Plan Assessment & Plan (1) Major depressive disorder, single episode with anxious distress: Status: Acute Code(s): F32.9 - Major depressive disorder, single episode, unspecified (2) JAKE (generalized anxiety disorder): Status: Acute Code(s): F41.1 - Generalized anxiety disorder Plan start duloxetine followup with MANAGER INFORMATION and PCP re; menapause concerns call [facility] for therapy Medications: New duloxetine 30 mg orally Take one capsule daily x10 then increase to 2 caps daily; 45 caps 0RF Refilled lorazepam 0.5 mg PO DAILY PRN 30 tabs 1RF anxiety anxiety attacks Discontinued fluoxetine (Prozac) Discontinued Reason: Doctor's Order 10 mg PO DAILY 90 caps 1RF Counseling and coordination of Care Pt. Self Management counseling: Exercise, Maintenance-social rhythm, Mod caffeine/ETOH intake, Nutrition education and improvement, Sleep hygiene and General coping skills Medication management counseling: Effectiveness, Side effects, Dosing range, Duration, Drug interaction and Adherence Diagnosis and Prognosis Counseling: Accuracy of diagnosis, Prognosis over time, Impact of diagnosis on life functions, Impact of family relationship, Problematic behaviors secondary to diagnosis and Adequacy of current interventions Details: I spent 40 minutes reviewing the record, seeing the patient and documenting in the medical record. Counseling provided to the patient/caregiver as outlined below. Addressed patient/caregiver concerns regarding current medication regime including effective adherence. Addressed patient/caregiver concerns regarding diagnosis and prognosis including accuracy of diagnosis, prognosis over time, impact of diagnosis. Addressed patient/caregiver concerns regarding impact of recent stressors. [facility] Medical History (Updated 06/03/25 @ 15:38 by SLOANE Gabriel) Chronic idiopathic constipation Fatigue Loud snoring Excessive daytime sleepiness Sleeping difficulties Depression with anxiety Right upper quadrant abdominal pain COVID-19 vaccination declined Refused influenza vaccine Annual visit for general adult medical examination with abnormal findings H. 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 Substance History: None Trauma History: None Coding Level of Care Code Est Pt Level 4 (32780) Diagnoses Major depressive disorder, single episode with anxious distress F32.9 JAKE (generalized anxiety disorder) F41.1
--- OUTSIDE RECORDS SUMMARY | 2025-06-28 21:30 | XMS_ITS | Patient Health Record ---
Author Organization [facility] Address [address] [place] [address] Care Team Providers Care Strategy Analyst Name Role Phone Mook Bradford Primary Care Provider Harman Sanchez Jr Unavailable Reason For Referral No Information Medications Medication SIG (Take, Route, Fr equency, Duration) Notes Start Date End Date Status MoviPrep 100 GM as directed before c olonoscopy Orally for 1 dose 01/06/2014 Active [place] Thyroid 120mg Active Problems Problem Type SNOMED Code ICD Code Onset Dates Problem Status W/U Status Risk Notes Problem Constipation (36954501) Constipation (564.00) Active confirmed Plan Of Treatment Future Test Test Name Order Date COLONOSCOPY 01/06/2014 Insurance Providers Payer Name Payer Address Payer Phone Subscriber Number Group Number Insured Name Patient Relationship to Insured Coverage Start Date Coverage End Date [employer] IN[employer]MNITY [address] [place] [address] [phone] [id number] FREIDA SHARPE Self - patient is the insured Medical (General) History Medical History History ICD Code hypothyroidism Surgical History Surgery Date(Month/Year) breast augmentation thyroid
== END 2025-06-28 16:44 | disposition home or self-care (01) ==
LOC: HO.HOP 16:28
PROVIDERS: PCP Internal Medicine; Visit Provider Clinical Nurse Specialist Psychiatric/Mental Health
DX: F32.9 Major depressive disorder, single episode, unspecified (principal); F41.1 Generalized anxiety disorder
CPT/HCPCS: 99214

== ENCOUNTER 2025-07-21 12:38 | Outpatient (AMB) | payer OTHER, SELFPAY ==
[2025-07-21 12:46] VITALS: BP 120/72; PULSE 75; RESP 15; O2SAT 99; BMI 26.1
--- NOTE | 2025-07-21 12:46 | MHC.PC.OV ---
Vital Signs 07/21/25 12:46 Height 5 ft 1 in Weight 138 lb BMI 26.1 BP 120/72 Blood Pressure Location Rt brachial Position Sitting Respiration 15 Pulse 75 Pulse Source Pulse Oximeter Pulse Oximetry (%) 99 Oxygen Delivery Method Room Air Intake Visit Reasons: Annual Intake Note: Pt is here today for her PE Allergies No Known Allergies Allergy (Verified 07/21/25 13:05) Medication List - Last Reconciled 07/21/25 by Jahaira Cabrera MD azelaic acid 15% 1 appl topical BID clotrimazole 10 mg mucous membrane .5 times per day 7 days duloxetine 30 mg orally Take one capsule daily x10 then increase to 2 caps daily; estradiol 1 mg PO DAILY Levoxyl (levothyroxine) 100 mcg PO DAILY 90 days NS lorazepam 0.5 mg PO DAILY PRN progesterone micronized 200 mg PO BEDTIME tretinoin 0.05% appl topical BEDTIME zolpidem 10 mg PO BEDTIME PRN Tobacco use date assessed: 07/21/25 Dental Screening Dental Screen Date: 07/21/25 Did you have a dental visit in the last 12 months?: Yes Did you have a dental problem in the last 6 months where you did not have access to dental care?: No Was dental information given to patient?: Patient has dentist HPI Annual HPI Details 55-year-old lady with past medical history of anxiety/ depression, hypothyroidism, chronic GERD, and constipation followed by GI, here today for her physical exam. She currently goes to [facility] for her routine Pap and pelvic exam, with last Pap smear done 07/18/2023 showing benign findings Last mammogram was done at [facility] 07/11/2023 with no evidence of malignancy seen. She had a normal colonoscopy screening done by Dr. Kaur in 2019 repeat due again in 2028. She currently sees [facility] for treatment of major depression with anxiety attacks. Recently started on duloxetine and continued on lorazepam to be taken as needed. She has been advised to call [facility] to schedule appointment for therapy. Has hypothyroidism currently stable and controlled on Levoxyl 100 mcg daily. Takes zolpidem as needed for insomnia. Has been having a lot of hot flashes and mood swings, currently on progesterone and estradiol prescribed by her OBGYN.. [facility] Medical History (Updated 07/21/25 @ 13:23 by Jahaira Cabrera MD) Chronic idiopathic constipation Fatigue Loud snoring Excessive daytime sleepiness Sleeping difficulties Depression with anxiety COVID-19 vaccination declined Refused influenza vaccine H. 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 1. Little interest or pleasure in doing things: more than half the days 2. Feeling down, depressed, or hopeless: more than half the days 3. Trouble falling or staying asleep, or sleeping too much: nearly every day 4. Feeling tired or having little energy: nearly every day 5. Poor appetite or overeating: several days 6. Feeling bad about yourself - or that you are a failure or have let yourself or your family down: nearly every day 7. Trouble concentrating on things, such as reading the newspaper or watching television: several days 8. Moving or speaking so slowly that other people could have noticed. Or the opposite - being so fidgety or restless that you have been moving around a lot more than usual: several days 9. Thoughts that you would be better off or of hurting yourself in some way: not at all Total score: 16 Depression Screening Interpretation: Positive (Started recently by [facility] on duloxetine, has lorazepam to be taken as needed) Depression Screening Follow-up: Existing condition, In treatment and Community Mental Health Worker F/U Depression Screening Done: Yes Source: Developed by Drs. Harvey L. DianaViviana ruiz, Conrad Mccartney and colleagues, with an educational kit from [employer]. Thrive Questionnaire Date Thrive assessed: 07/06/24 I am a: Patient What is your living situation today?: I have a steady place to live Within the past 12 months, did the food you bought not last and you didn't have the money to get more?: I choose not to answer this question Within the past 12 months, did you worry whether your food would run out before you got money to buy more?: I choose not to answer this question Do you have trouble paying for medicines?: I choose not to answer this question Do you have trouble getting transportation to medical appointments?: I choose not to answer this question Do you have trouble paying your heating and electricity bill?: I choose not to answer this question Do you have trouble taking care of your child, family member or friend?: I choose not to answer this question Do you have trouble with day-to-day activities such as bathing, preparing meals, shopping, managing finances, etc.?: I choose not to answer this question Are you currently unemployed and looking for a job?: I choose not to answer this question Are you interested in more education?: I choose not to answer this question Please select the resources that you would like help with: None Currently or been in a relationship where the following occur: I choose not to answer THRIVE Score: 0 AUDIT C Alcohol Use Questionnaire (AUDIT-C) 1. How often do you have a drink containing alcohol?: 2-4 times a month 2. How many drinks containing alcohol do you have on a typical day when you are drinking?: 1 or 2 3. How often do you have six or more drinks on one occasion?: Never Total Score: 2 JAKE-7 AMB Questionnaire JAKE-7 Date JAKE - 7 assessed: 08/14/24 Feeling nervous, anxious, or on edge: 3 = Nearly every day Not being able to stop or control worryin = Nearly every day Worrying too much about different things: 3 = Nearly every day Trouble relaxin = Nearly every day Being so restless that it is hard to sit still: 3 = Nearly every day Becoming easily annoyed or irritable: 3 = Nearly every day Feeling afraid as if something awful might happen: 3 = Nearly every day Total JAKE-7 score (0-4 normal; 5-9 mild; 10-14 moderate; 15-21 severe): 21 Source: Developed by Drs. Harvey Ortiz, Viviana Samaniego, Conrad Mccartney and colleagues, with an educational kit from [employer]. JAKE-7 Assessment Billing JAEK-7 Assessment Tool: JAKE-7 Assessment 50828 (Sees [facility] for medications and referred to [facility] for counseling) Review of Systems Const Denies fever(s) and Denies poor appetite [facility] Details: [facility] Reports requires corrective lenses ENT Details: Sees dentist every six-months for prophylaxis Card Reports no additional complaints Resp Reports no additional complaints GI Details: Denies abdominal pain, Denies melena, Denies bloating, Denies hematochezia, Denies GI cramping, Denies diarrhea, Denies nausea, Denies vomiting and Denies hematemesis Reports no additional complaints and Reports as per HPI Musc Reports no additional complaints Skin/Breast Denies pruritus, Denies lesions, Denies rash and Denies jaundice Neuro Denies Abnormal speech present Psych Reports as per HPI Endo Reports no additional complaints Abraham/Lymph Reports no additional complaints Aller/Immun Reports no additional complaints Physical exam (Primary Care) Vital Signs: Last Vital Signs Pulse 75 07/21/25 12:46 Resp 15 07/21/25 12:46 BP 120/72 07/21/25 12:46 Pulse Ox 99 07/21/25 12:46 Oxygen Delivery Method Room Air 07/21/25 12:46 BMI result Body Mass Index 26.1 Tobacco/Smoking Status: Tobacco use Status Tobacco use date assessed 07/21/25 07/21/25 12:52 Patient Tobacco Use Status Never used Tobacco 07/21/25 12:47 e-Cigarette/Vaping Use Never Used 07/21/25 12:47 PHQ-9: PHQ-9 Score PHQ-9: Total score 16 07/26/25 00:53 Depression Screening Interpretation: Positive (Started recently by [facility] on duloxetine, has lorazepam to be taken as needed) Depression Screening Follow-up: Existing condition, In treatment and Community Mental Health Worker F/U Thrive Assessment: Date of Thrive Assessment Date Thrive assessed 07/06/24 07/21/25 12:47 Currently or been in a relationship where the following occur: I choose not to answer Advance Care Planning discussion: Completed/Scanned Date of discussion: 07/06/24 Who was present: Patient Forms completed: Health Care Proxy Time spent: 16-45 minutes Actual minutes spent: 16 Const Other: Alert oriented x3, no acute cardiorespiratory distress, ambulatory with normal gait HENMT Face and sinus: Yes face symmetric Mouth: Normal oral and palatal mucosa present and moist mucous membranes Eyes General: appearance normal, both eyes and all related structures Neck Neck: Yes full ROM, Yes no lymphadenopathy, Yes supple and Yes no JVD Chest Chest palpation & inspection: normal inspection of the chest Breast/axilla palpation: normal palpation of the breasts and other (breast implants) Resp Auscultation: clear to auscultation bilaterally Cardio Palpation: normal PMI Rate: regular rate Rhythm: regular rhythm Heart sounds: S1 normal heart sound present and S2 normal heart sound present GI Palpation (GI): Soft to palpation, nontender, no guarding and no masses Auscultation: normal bowel sounds Other: Goes to her own OBGYN Dr. Dixie Grant, who also orders her mammogram and does her cervical cancer screening General: Yes no CVA tenderness Back/Spine/Pelvis Back: no CVA tenderness and No back tenderness Skin General skin exam: no rashes or lesions noted Neuro General: gait normal and no focal motor deficits Speech: No Abnormal speech present Extrem General: Yes full ROM, Yes no joint enlargement, Yes no pedal edema, Yes no calf tenderness and Yes normal gait Psych Appearance: grossly normal and well kempt Mental Status: mental status grossly normal Speech and movement: Normal speech and movement present Affect: Sad affect present Thought process: Normal thought process present Thought content: Depressive thoughts present Coding Level of Care Code Est Pt Prev Care 40-64y(39858) Diagnoses Annual visit for general adult medical examination with abnormal findings Z00.01 Insomnia, unspecified type G47.00 Insomnia type: unspecified Acquired hypothyroidism E03.9 Depression with anxiety F41.8 Chronic idiopathic constipation K59.04 Sore in mouth K13.79 Additional Codes JAKE-7 Assessment Billing - JAKE-7 Assessment Tool: JAKE-7 Assessment 42988 ([id number]) Vital Signs *Quality* - Advance Care Planning discussion: Completed/Scanned ([id number]) Vital Signs *Quality* - Time spent: 16-45 minutes ([id number]) Assessment & Plan Assessment & Plan (1) Annual visit for general adult medical examination with abnormal findings: Code(s): Z00.01 - Encounter for general adult medical examination with abnormal findings Plan: Will check appropriate labs. Recommended dental visit every 6 months and regular eye exams, at least every 2 years. Take adequate calcium in diet and vitamin-D 3 at 2000 IU per cap once a day, in addition to weight-bearing exercises to help maintain good muscle tone and weight control. Instructed to do self-breast exam, and r continue to get yearly mammogram, up-to-date with her cervical cancer screening, goes to [facility]BG[facility]. Colonoscopy screening up-to-date (2) Insomnia: Code(s): G47.00 - Insomnia, unspecified Category: Medical Qualifiers: Insomnia type: unspecified Qualified Code(s): G47.00 - Insomnia, unspecified Plan: Takes zolpidem as needed (3) Acquired hypothyroidism: Code(s): E03.9 - Hypothyroidism, unspecified Category: Medical Plan: Continue Levoxyl 100 mcg daily. Ordered a repeat TSH and free T4 level (4) Depression with anxiety: Code(s): F41.8 - Other specified anxiety disorders Category: Medical Plan: Recently started on duloxetine by [facility] 60 mg daily, and has lorazepam to take as needed for acute attacks of anxiety. He has already been referred to [facility] to schedule appointment with a therapist (5) Chronic idiopathic constipation: Code(s): K59.04 - Chronic idiopathic constipation Category: Medical Plan: Followed by GI clinic (6) Sore in mouth: Code(s): K13.79 - Other lesions of oral mucosa Plan: Will check FITO, vitamin B6 vitamin-D and B12 and folic acid level as well as vitamin B1 Orders: Orders Thyroid Stimulating Hormone 07/21/25 E03.9 - Hypothyroidism, unspecified Free T4 (Free Thyroxine) 07/21/25 E03.9 - Hypothyroidism, unspecified FITO Reflex Titer and Pattern 07/21/25 E03.9 - Hypothyroidism, unspecified, F41.8 - Other specified anxiety disorders, G47.00 - Insomnia, unspecified, K13.79 - Other lesions of oral mucosa, K21.9 - Gastro-esophageal reflux disease without esophagitis, K59.04 - Chronic idiopathic constipation, Z00.01 - Encounter for general adult medical examination with abnormal findings, Z13.1 - Encounter for screening for diabetes mellitus, Z13.220 - Encounter for screening for lipoid disorders Vitamin D 25-OH Total 07/21/25 E03.9 - Hypothyroidism, unspecified, F41.8 - Other specified anxiety disorders, G47.00 - Insomnia, unspecified, K13.79 - Other lesions of oral mucosa, K21.9 - Gastro-esophageal reflux disease without esophagitis, K59.04 - Chronic idiopathic constipation, Z00.01 - Encounter for general adult medical examination with abnormal findings, Z13.1 - Encounter for screening for diabetes mellitus, Z13.220 - Encounter for screening for lipoid disorders Vitamin B6 07/21/25 E03.9 - Hypothyroidism, unspecified, F41.8 - Other specified anxiety disorders, G47.00 - Insomnia, unspecified, K13.79 - Other lesions of oral mucosa, K21.9 - Gastro-esophageal reflux disease without esophagitis, K59.04 - Chronic idiopathic constipation, Z00.01 - Encounter for general adult medical examination with abnormal findings, Z13.1 - Encounter for screening for diabetes mellitus, Z13.220 - Encounter for screening for lipoid disorders Vitamin B12 and Folate 07/21/25 E03.9 - Hypothyroidism, unspecified, F41.8 - Other specified anxiety disorders, G47.00 - Insomnia, unspecified, K13.79 - Other lesions of oral mucosa, K21.9 - Gastro-esophageal reflux disease without esophagitis, K59.04 - Chronic idiopathic constipation, Z00.01 - Encounter for general adult medical examination with abnormal findings, Z13.1 - Encounter for screening for diabetes mellitus, Z13.220 - Encounter for screening for lipoid disorders Vitamin B1 07/21/25 E03.9 - Hypothyroidism, unspecified, F41.8 - Other specified anxiety disorders, G47.00 - Insomnia, unspecified, K13.79 - Other lesions of oral mucosa, K21.9 - Gastro-esophageal reflux disease without esophagitis, K59.04 - Chronic idiopathic constipation, Z00.01 - Encounter for general adult medical examination with abnormal findings, Z13.1 - Encounter for screening for diabetes mellitus, Z13.220 - Encounter for screening for lipoid disorders Lipid Panel 07/21/25 E03.9 - Hypothyroidism, unspecified, F41.8 - Other specified anxiety disorders, G47.00 - Insomnia, unspecified, K13.79 - Other lesions of oral mucosa, K21.9 - Gastro-esophageal reflux disease without esophagitis, K59.04 - Chronic idiopathic constipation, Z00.01 - Encounter for general adult medical examination with abnormal findings, Z13.1 - Encounter for screening for diabetes mellitus, Z13.220 - Encounter for screening for lipoid disorders Comprehensive [place]. Panel Fast 07/21/25 E03.9 - Hypothyroidism, unspecified, F41.8 - Other specified anxiety disorders, G47.00 - Insomnia, unspecified, K13.79 - Other lesions of oral mucosa, K21.9 - Gastro-esophageal reflux disease without esophagitis, K59.04 - Chronic idiopathic constipation, Z00.01 - Encounter for general adult medical examination with abnormal findings, Z13.1 - Encounter for screening for diabetes mellitus, Z13.220 - Encounter for screening for lipoid disorders Complete Blood Count Auto Diff 07/21/25 E03.9 - Hypothyroidism, unspecified, F41.8 - Other specified anxiety disorders, G47.00 - Insomnia, unspecified, K13.79 - Other lesions of oral mucosa, K21.9 - Gastro-esophageal reflux disease without esophagitis, K59.04 - Chronic idiopathic constipation, Z00.01 - Encounter for general adult medical examination with abnormal findings, Z13.1 - Encounter for screening for diabetes mellitus, Z13.220 - Encounter for screening for lipoid disorders Medications: Discontinued clotrimazole Discontinued Reason: Patient no longer taking 10 mg mucous membrane .5 times per day 7 days 35 tabs 0RF
== END 2025-07-21 13:44 | disposition home or self-care (01) ==
LOC: HO.HMCC 12:39
PROVIDERS: PCP Internal Medicine; Visit Provider Internal Medicine
DX: Z00.01 Encounter for general adult medical examination with abnormal findings (principal); G47.00 Insomnia, unspecified; E03.9 Hypothyroidism, unspecified; F41.8 Other specified anxiety disorders; K59.04 Chronic idiopathic constipation; K13.79 Other lesions of oral mucosa; Z00.00 Encounter for general adult medical examination without abnormal findings

== ENCOUNTER → 2025-07-21 12:38 | Outpatient (BNVA) | payer OTHER, SELFPAY | PROVIDERS: PCP Internal Medicine; Visit Provider Internal Medicine | DX: Z00.01 Encounter for general adult medical examination with abnormal findings (principal); F41.8 Other specified anxiety disorders; E03.9 Hypothyroidism, unspecified; K21.9 Gastro-esophageal reflux disease without esophagitis; G47.00 Insomnia, unspecified; K59.04 Chronic idiopathic constipation; K13.79 Other lesions of oral mucosa | CPT/HCPCS: 96127 ==

== ENCOUNTER 2025-07-27 13:07 | Outpatient (REF) | payer OTHER, SELFPAY ==
--- OUTSIDE RECORDS SUMMARY | 2025-07-27 15:52 | XMS_ITS | Patient Health Record ---
Author Organization [facility] Address [address] [place] [address] Care Team Providers Care Claims Adjuster Name Role Phone Mook Bradford Primary Care Provider Harman Sanchez Jr Unavailable Reason For Referral No Information Medications Medication SIG (Take, Route, Fr equency, Duration) Notes Start Date End Date Status MoviPrep 100 GM as directed before c olonoscopy Orally; Duration: 1 dose 01/06/2014 Active [place] Thyroid 120mg Active Problems Problem Type SNOMED Code ICD Code Onset Dates Problem Status W/U Status Risk Notes Problem Constipation (94761452) Constipation (564.00) Active confirmed Plan Of Treatment Future Test Test Name Order Date COLONOSCOPY 01/06/2014 Insurance Providers Payer Name Payer Address Payer Phone Subscriber Number Group Number Insured Name Patient Relationship to Insured Coverage Start Date Coverage End Date [employer] [address] [place] [address] [id number] FREIDA SHARPE Self - patient is the insured Medical (General) History Medical History History ICD Code hypothyroidism Surgical History Surgery Date(Month/Year) breast augmentation thyroid
[2025-07-27 16:15] LABS: MANUAL DIFF FLAG NO
[2025-07-27 16:36] LABS: Hematocrit 41.8 % (37.0-47.0); Hemoglobin 14.0 g/dl (12.0-16.0); Imm Gran Abs Auto 0.02 X10*3/uL (0.00-0.03); Imm Gran Pct Auto 0.4 % (0.0-0.4); Lymphocytes Absolute Auto 1.6 X10*3/uL (1.2-4.9); Mean Corpuscular HGB Conc 33.5 g/dl (31.0-35.0); Mean Corpuscular Hemoglobin 29.7 pg (27.0-33.0); Mean Corpuscular Volume 88.6 fL (80.0-98.0); NRBC Abs Auto 0.000 X10*3/uL (0.0-0.012); NRBC Pct Auto 0.0 /100WBC (0.0-0.2); Platelet Count 277 X10*3/uL (160-400); Red Blood Count 4.72 X10*6/uL (4.20-5.50); White Blood Count 5.7 X10*3/uL (4.8-10.8)
[2025-07-27 17:23] LABS: Folate 12.2 ng/mL (> or = 4.0); Vitamin B12 903 pg/mL (200-900)
[2025-07-27 17:34] LABS: Alanine Aminotransferase 79 U/L (0-31); Albumin Level 4.6 g/dL (3.5-5.0); Alkaline Phosphatase 89 U/L (39-117); Anion Gap 11 (12-20); Aspartate Amino Transferase 49 U/L (5-31); Blood Urea Nitrogen 7 mg/dL (9-16); Calcium 10.0 mg/dL (8.4-10.2); Carbon Dioxide 28 mmol/L (22-29); Chloride 108 mmol/L (96-108); Cholesterol 216 mg/dL (<200); Estimated Glomerular Filt Rate > 60; HDL Cholesterol 62 mg/dL (>40); Potassium 4.0 mmol/L (3.3-5.1); Sodium 143 mmol/L (135-145); Total Protein 7.7 g/dL (6.5-8.0); Triglycerides 83 mg/dL (<150)
[2025-07-27 17:39] LABS: Free T4 (Free Thyroxine) 1.30 ng/dL (0.71-1.85); Thyroid Stimulating Hormone 0.08 uIU/mL (0.32-4.0)
[2025-08-02 13:39] LABS: Anti Nuclear Antibody Screen NEGATIVE (NEGATIVE)
== END 2025-07-27 13:08 | disposition home or self-care (01) ==
LOC: HO.HMGCLDS 13:07
PROVIDERS: PCP Internal Medicine; Visit Provider Internal Medicine
DX: Z00.01 Encounter for general adult medical examination with abnormal findings (principal); Z13.220 Encounter for screening for lipoid disorders; Z13.1 Encounter for screening for diabetes mellitus; E03.9 Hypothyroidism, unspecified; K13.79 Other lesions of oral mucosa; G47.00 Insomnia, unspecified; K21.9 Gastro-esophageal reflux disease without esophagitis; F41.8 Other specified anxiety disorders; K59.04 Chronic idiopathic constipation
CPT/HCPCS: 36415; 80053; 80061; 82306; 82607; 82746; 84207; 84425; 84439; 84443; 85025; 86038

== ENCOUNTER 2025-07-28 10:19 | Outpatient (REF) | payer OTHER, SELFPAY ==
--- NOTE | ~2025-07-28 | FL_ITS ---
EXAMINATION: XR BARIUM SWALLOW CLINICAL INFORMATION: Mixed irritable bowel syndrome. COMPARISON: None available. TECHNIQUE: Modified barium swallow was performed under fluoroscopy in presence of speech therapist. FINDINGS: Following oral administration of thick barium, semisolid food is normal. Bolus from the oral cavity, pharynx and esophagus without obstruction, narrowing or stricture. There is no laryngeal penetration and aspiration seen with thin barium. No retention of barium of solid food in the valleculae or piriform sinuses. A nonspecific esophageal web is seen in the cervical esophagus along the anterior margin but no obstruction. FLUOROSCOPY TIME: 45 seconds DOSE AREA PRODUCT: 449.9 uGy-m2 (microgray-meter squared) FL/FL Modified Barium Swallow IMPRESSION: Unremarkable modified barium swallow exam. Correlate with speech therapy report. Electronically signed by: Lester Briscoe MD 07/28/2025 02:39 PM EDT
--- OUTSIDE RECORDS SUMMARY | 2025-07-28 12:11 | XMS_ITS | Patient Health Record ---
Author Organization [facility] Address [address] [place] [address] Care Team Providers Care Directory Clerk Name Role Phone Mook Bradford Primary Care Provider Harman Sanchez Jr Reason For Referral No Information Medications Medication SIG (Take, Route, Fr equency, Duration) Notes Start Date End Date Status MoviPrep 100 GM as directed before c olonoscopy Orally; Duration: 1 dose 01/06/2014 Active [place] Thyroid 120mg Active Problems Problem Type SNOMED Code ICD Code Onset Dates Problem Status W/U Status Risk Notes Problem Constipation (14784785) Constipation (564.00) Active confirmed Plan Of Treatment Future Test Test Name Order Date COLONOSCOPY 01/06/2014 Insurance Providers Payer Name Payer Address Payer Phone Subscriber Number Group Number Insured Name Patient Relationship to Insured Coverage Start Date Coverage End Date [employer] [address] [place] [address] [id number] FREIDA SHARPE Self - patient is the insured Medical (General) History Medical History History ICD Code hypothyroidism Surgical History Surgery Date(Month/Year) breast augmentation thyroid
--- OUTSIDE RECORDS SUMMARY | 2025-07-28 12:11 | XMS_ITS | Data Portability ---
Author Organization [place] - [facility],, DIXIE PAYNE MD Address [address] [address] Care Team Providers Care Fire Lieutenant Name Role Phone JOSEF ERVIN Primary Care Provider [phone] Assessment No assessment recorded. Plan of Treatment Reminders Order Date Submit Date Provider Last Modified By Organization Details Last Modified Time Details Appointments None recorded . Lab cytology report, thin prep, smear or scraping , cervical or vaginal 2024 025 CHARLENE [facility] (Centralized Electronic Ordering - All Locations), Patient Can Go To The Location Of Their Choice, [id number] 10:16:06 pap test, thinprep , cervical 2022 023 [facility] (Centralized Electronic Ordering - All Locations), Patient Can Go To The Location Of Their Choice, [id number] 3 07:30:07 pap test, thinprep , cervical 2021 022 [facility], Cytopathology Service, [address] [place], [address], 07:52:32 Referral None recorded . Procedures None recorded . Surgeries None recorded . Imaging MAMMO, screenin g, digital, bilatera l - Breast Aspirati on and/or Biopsy if needed 2024 025 corey [facility] Orders, [address], [place], [address], 5 14:52:05 MAMMO, screenin g, digital, bilatera l - Breast Aspirati on and/or Biopsy if needed 2022 023 [facility]), [address], [place], [address], 5 07:12:08 MAMMO, screenin g, digital, bilatera l 2021 022 [facility]), [address], [place], [address], 4 07:24:15 Medication Orders estradio l 1 mg tablet 2024 025 [facility], [address] [place], [address], 5 14:39:50 progeste erik microniz ed 200 mg capsule 2024 025 [facility] [employer] [facility], [address] [place], [address], 5 14:39:49 Patient TargetsNo targets recorded. Patient Instructions Encounter Date Encounter Id Patient Instructions Last Modified By Organization Details Last Modified Time 06/27/2022 [id number] learning about healthy weight Not available 06/27/2022 11:51:10 She is here for annual exam, has not had menses since 2017. She is still having vasomotor symptoms, and has anxiety, her PCP gave her lorazepam for this but she feels it is not helping enough. She has silicone breast implants, they are not textured, has not had a mammogram since 2018. Declines all vaccinations. ___ Note from 2020: She is here for [...] is advised to find out, and why. __ She declines rectal exam. We discussed option [...] the breast. Not available 06/27/2022 11:52:29 07/18/2023 [id number] learning about healthy weight Not available 07/18/2023 13:08:21 She is here for annual, doing well. Mammo 07/11/23 was birads 2. Mild to moderate vasomotor symptoms, improved compared to last year. __ Note from 2021: She is here for [...] the breast. Not available 07/18/2023 13:08:40 02/06/2024 [id number] This visit is a phone telehealth visit. The patient consented to the visit by phone. The patient was at home at the time of the call and the provider and patient were the only people on the line. I was at [address] [facility], [address], [place], [place], at the time of the call. [...] go more than 1 day without alcohol. ___ Note from 08/05: She is here for annual, doing well. Mammo 07/11/23 was birads 2. Mild to moderate vasomotor symptoms, improved compared to last year. __ Note from 2021: She is here for [...] discussion 22 minutes Not available 02/06/2024 12:45:55 05/04/2025 [id number] learning about healthy weight Not available 05/04/2025 14:10:24 She is here for annual, doing well, still having some hot flashes and, brain fog. Mammo 06/2023 was fine. Telehealth from 01/2024: She would like to talk about getting [...] 1 day without alcohol. _ Note from 2022: She is here for annual, doing well. Mammo 07/11/23 was birads 2. Mild to moderate vasomotor symptoms, improved compared to last year. __ Note from 2021: She is here for [...] discovers any new mass in the breast. Sh is willing to try black cohash advised to try Remifemin, to se if it helps her vasomotor symptoms. Not available 05/04/2025 14:11:13 07/12/2025 [id number] She is here to discuss her continued vasomotor symptoms. She has hot flashes, night sweats, insomnia for which she takes lorazepam. She had anxiety and a panic attack that took her to the ED. She has been trying to not take HRT but now feels this may be what she needs. No menses since 2017. Symptoms have bene ongoing since then. ___ Note from 05/04/25: She is here for annual, doing well, still having some hot flashes and, brain fog. Mammo 06/2023 was fine. __ We discussed having her begin to take hormone replacement therapy. We discussed the need to take a progestin if a uterus is present, and the rationale behind that. We discussed the stated risks of one in 10,000 of development of a blood clot/DVT/PE that could be life threatening. We discussed the Women's Health Initiative study and the findings. We discused the PEPPI study as well. She is aware that there are conflicting reports in the medical literature concerning the risks and benefits of HRT. We disussed that women are advised by ACOG to take HRT in the lowest dose necessary, and for the shortest time necessary, to control their symptoms. After a long discussion of the potential risks and benefits of HRT she elects to begin HRT. All questions answered. We discussed pill versus patch and first pass but the patches were going to be over $250 for 3 months. She prefers the pills. Rx for HRT is called in to the pharmacy. Call if any vaginal bleeding occurs upon initiation of HRT, or at any time postmenopausally. Face to face discussion, chart review and coordination of care: 45 minutes Not available 07/12/2025 14:57:22 Reason for Referral None Reported. Results Created Date Observation Date Name Description Value Unit Range Abnormal Flag Note LastModifiedBy Organization Detail LastModifiedTime 06/27/20 22 06/27/2022 PAP1C ASE [id number] ThinP rep Pap, Image d: NEGAT ANDREA FOR SQUAM OUS INTRA EPITH ELIAL MAMTA Barbosa AND ERI STUBBS . Atrop hy. Mike Ngo hers , [place]( CP) (Case elect danika ahumada [...] . LPS neg, [z01. 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 Perfo rmed at [facility] ate Refer ence Labor at[facility] t[facility] of Cytol ogy, [address] [place] Clini zulema Histo ry (othe r): Z01.4 19, routi ne scree n, LPS neg Phone #: [phone], On-Ca ll Patho logis t: [id number] Not Available [facility] (Centralized Electronic Ordering - All Locations) Patient Can Go To The Location Of Their Choice, [id number] 07/24/2023 13:28:43 05/04/20 25 05/06/2025 IGP, RFX APTIM A HPV ASCU diagnosis: Commen t NEGAT ANDREA FOR INTRA EPITH ELIAL LESIO N OR MALIG EVELYNE . Not Available [facility] ([facility]) [address] [place], [address], 05/06/2025 10:16:06 05/04/20 25 05/06/2025 IGP, RFX APTIM A HPV ASCU specimen adequacy: Violeta t Satis facto ry for evalu ation . No endoc ervic al compo nent is ident ified . Not Available [facility] ([facility]) [address] [place], [address], 05/06/2025 10:16:06 05/04/20 25 05/06/2025 IGP, RFX APTIM A HPV ASCU clinician provided ICD10: Violeta nieto Z01.4 19 Not Available [facility] ([facility]) [address] [place], [address], 05/06/2025 10:16:06 05/04/20 25 05/06/2025 IGP, RFX APTIM A HPV ASCU performed by: Violeta Obrien, Cytol ogist (ASCP ) Not Available [facility] ([facility]) [address] [place], [address], 05/06/2025 10:16:06 05/04/20 25 05/06/2025 IGP, RFX APTIM A HPV ASCU . . Not Available [facility] ([facility]) [address] [place], [address], 05/06/2025 10:16:06 05/04/20 25 05/06/2025 IGP, RFX APTIM A HPV ASCU note: Violeta nieto The Pap smear is a scree francis test desig stephy to aid in the detec tion of mario ligna nt and malig nant condi tions of the uteri ne cervi x. It is not a diagn ostic proce dure and shoul d not be used as the sole means of detec ting cervi zulema cance r. Both false -posi tive and false -nega tive repor ts do occur . Not Available [facility] ([facility]) [address] [facility], [place], [address], 05/06/2025 10:16:06 05/04/20 25 05/06/2025 IGP, RFX APTIM A HPV ASCU test methodology: Commen t This liqui d based ThinP rep(R ) pap test was danitza keyes with the use of an image guide guille boone. Not Available [facility] ([facility]) [address] [facility], [place], [address], 05/06/2025 10:16:06 05/04/20 25 05/06/2025 IGP, RFX APTIM A HPV ASCU . Commen t The HPV DNA refle x crite maury were not met with this speci men resul t there fore, no HPV testi ng was perfo rmed. Not Available [facility] ([facility]) [address] [facility], [place], [address], 05/06/2025 10:16:06 07/11/20 23 07/11/2023 MAMMO , danitza blanco, digit al, bilat eral No observ ation record ed. [facility] [address], [place], [address], 07/12/2023 07:58:51 Result Notes None recorded. Problems Name Problem SNOMED Code Status Onset Date Resolution Date Notes Provider Name and Address Organization Details Recorded Time Hypothyroi dism 69114909 Active 2015 Myriam oneal [place] - [facility], 6 14:14:45 Dysfunctio nal uterine bleeding Active 2015 Dixie Payne MD [address] [facility], [address], [place], [address] [place] - [facility], 6 14:59:08 Perimenopa usal disorder 973966835 Active 2015 Dixie Payne MD [address], [place], [address], [place] - [facility], 6 14:59:15 No consent - influenza immunizati on 725304375 Active 2019 she identifies as an anti-vaxx er although her children are vaccinated for all but influenza. Dixie Payne MD [address], [place], [address], [place] - [facility], 0 15:11:01 Screening for malignant neoplasm of rectum Active 2021 Dixie Payne MD [address], [place], [address], [place] [facility], 2 11:50:55 Menopausal syndrome 106087625 Active 2023 Dixie Payne MD [address], [place], [address], [place] [facility], 4 12:28:03 Alcohol dependence 20375559 Active 2023 Dixie Payne MD [address], [place], [address], [place] - [facility], 4 12:50:32 Problem Notes None recorded. Procedures Surgical History Date Name Laterality Status Provider Name and Address Organization Details Recorded Time 4 Most Recent Mammogram completed Chayo Fermin in [facility], 05/04/2025 13:49:06 4 Tubal Ligation completed Myriam loza in [facility], 08/21/2016 14:21:23 6 Other completed Myriam Patricio s in [facility], 08/21/2016 14:22:41 9 Breast Implants completed Dixie Payne MD [address], [place], [address], [place] - [facility], 09/19/2020 15:07:02 Imaging Results None recorded. Procedure Notes None recorded. Medical Equipment None [...] completed Not Available Not Available Not Available [place] Thyroid 60 mg tablet 08/21 completed Not Available Not Available Not Available clotrimazol e 10 mg xander DISSOLVE 1 XANDER 10MG) TO AFFECTED MUCOSAL AREA 5 TIMES DAILY FOR 7 DAYS active Not Available Not Available No t Available buspirone 5 mg tablet TAKE ONE TABLET BY MOUTH THREE TIMES A DAY 05/04 completed Not Available Not Available Not Available [...] completed Not Available Not Available Not Available [place] Thyroid 90 mg tablet 08/21 completed Not [...] Not Available Not Available Not Available Levoxyl 100 mcg tablet TAKE 1 TABLET BY MOUTH DAILY. active Not Available Not Available No t Available prednisone 20 mg tablet TAKE TWO TABLETS BY MOUTH EVERY DAY FOR 5 DAYS 07/12 completed Not Available Not Available Not Available nystatin 500,000 unit tablet 06/27 completed Not Available Not Available Not Available metronidazo le 500 mg tablet 09/13 completed Not Available Not Available Not Available tretinoin 0.05 % topical cream APPLY AT BEDTIME TO FACE FOR ACNE. active Not Available Not Available No t Available sulfamethox azole 800 mg-trimetho prim 160 mg tablet 09/13 completed Not Available Not Available Not Available adapalene 0.1 % topical cream 09/13 completed Not Available Not Available Not Available [place] Thyroid 15 mg tablet 08/21 completed Not Available Not Available Not Available doxycycline monohydrate 50 mg capsule TAKE ONE CAPSULE BY MOUTH TWICE A DAY UNTIL IMPROVED, THEN REDUCE TO ONE CAPSULE DAILY. active Not Available Not Available No t Available lorazepam 0.5 mg tablet TAKE 1 TABLET BY MOUTH DAILY NEEDED FOR ANXIETY ATTACKS. active Not Available Not Available No t Available estradiol 1 mg tablet TAKE ONE TABLET BY MOUTH [...] completed Not Available Not Available Not Available erythromyci n 5 mg/gram (0.5 %) eye ointment APPLY SPARINGLY TO AFFECTED AREA S) ON EYELIDS OF BOTH EYES AFTER WARM WATER COMPRESS IN THE MORNING AND IN THE EVENING UNTIL IMPROVED. 07/09 completed Not Available Not Available Not [...] completed Not Available Not Available Not Available buspirone 10 mg tablet TAKE ONE TABLET BY MOUTH TWICE A DAY 05/04 completed Not Available Not Available Not Available levothyroxi ne 150 mcg tablet take 1 tablet by mouth once daily 07/09 completed Not Available Not Available Not Available metronidazo le 0.75 % topical cream apply to affected area twice a day ON FACE 09/13 completed Not Available Not Available Not Available progesteron e micronized 200 mg capsule TAKE ONE CAPSULE BY MOUTH DAILY AT BEDTIME active Not Available Not Available No t Available fluoxetine 10 mg capsule TAKE ONE CAPSULE BY MOUTH EVERY DAY active Not Available Not Available No t Available omeprazole 20 mg capsule,del ayed release [...] Not Available zolpidem 10 mg tablet TAKE 1 TABLET BY MOUTH AT BEDTIME NEEDED FOR SLEEP; TRY TAKING INITIALLY HALF A TABLET OR 5 MG AT BEDTIME , NEEDED FOR INSOMNIA active Not Available Not Available No t [...] completed Not Available Not Available Not Available amoxicillin 875 mg-potassiu m clavulanate 125 mg tablet TAKE ONE TABLET BY MOUTH EVERY 12 HOURS FOR 7 DAYS 07/09 completed Not Available Not Available Not [...] Not Available Not Available No t Available bupropion HCl XL 150 mg 24 hr tablet, extended release TAKE ONE TABLET BY MOUTH EVERY MORNING 05/04 completed Not Available Not Available Not Available FE 11/02 (28) 1 mg-20 mcg (21)/75 mg (7) tablet 01/11 completed Not Available Not Available Not Available duloxetine 30 mg capsule,del ayed release TAKE 1 CAPSULE BY MOUTH DAILY FOR 10 DAYS THEN INCREASE TO 2 CAPSULES DAILY. active Not Available Not Available No t Available eszopiclone 2 mg tablet TAKE 1 [...] APPLY SPARINGLY TWO TIMES A DAY NEEDED FOR ROSACEA active Not Available Not Available No t [...] Not Available Not Available No t Available Linzess 145 mcg capsule TAKE ONE CAPSULE BY MOUTH EVERY DAY FIRST THING IN THE MORNING WITH A FULL GLASS OF WATER 05/04 completed Not Available Not Available Not Available ivermectin 1 % topical cream APPLY CREAM TO THE FACE IN THE MORNING ONCE A DAY FOR ACNE AND ROSACEA 07/18 completed Not Available Not Available Not Available Xiidra 5 % eye drops in a dropperette INSTILL 1 DROP IN BOTH EYES TWICE A DAY CONTINUOU SLY active Not Available Not Available No t Available Proctosol HC 2.5 % topical cream perineal applicator 09/13 completed Not Available Not Available Not Available RN ICU Thyroid 120 mg tablet 07/09 completed Not Available Not Available Not Available Vitals Date Recorded Body height Provider Name an d Address Organization Details Last Updated DateTime 02/06/2024 156.21 cm Chayo Mcbride [place] [facility], 02/06/2024 10:27:35 Date Recorded Body weight Body mass index (BMI) Body height Heart rate Systolic And Diastolic Provider Name and Address Organization Details Last Updated DateTime 05/04/2025 24795.1 g 26.9 kg/m2 156.21 cm 75 /min 150/77 mm[Hg] Chayo Fermin in [facility], 05/04/2025 13:45:21 Date Recorded Body weight Body mass index (BMI) Body height Heart rate Systolic And Diastolic Provider Name and Address Organization Details Last Updated DateTime 06/27/2022 92705.64 g 23.4 kg/m2 156.21 cm 79 /min 147/68 mm[Hg] Katherine Fermin in [facility], 06/27/2022 11:27:34 Date Recorded Body height Body mass index (BMI) Body weight Heart rate Systolic And Diastolic Provider Name and Address Organization Details Last Updated DateTime 07/12/2025 156.21 cm 25.5 kg/m2 02368.59 g 67 /min 128/74 mm[Hg] Chayo Fermin in [facility], 07/12/2025 14:01:22 Date Recorded Body weight Body mass index (BMI) Body height Heart rate Systolic And Diastolic Provider Name and Address Organization Details Last Updated DateTime 07/18/2023 13113.34 g 25.8 kg/m2 156.21 cm 67 /min 123/74 mm[Hg] Katherine Fermin in [facility], 07/18/2023 12:55:44 Social History Question Answer Notes LastModified by Organizat ion Details LastModified Time Tobacco Smoking Status Never Smoker Myriam [place] Gan in [facility], 08/21/2016 14:16:27 What Is [...] not available 08/21/2016 Who Is Your Employer? [employer] Information not available 06/27/2022 How Many Days [...] Date Of Your Most Recent Tobacco Screening? 07/12/2025 Information not available 07/12/2025 What Is Your Relationship Status? Information not [...] Have You Consumed 4 Or More Drinks? 20 Information not available 07/12/2025 Sex: Female Functional Status Question Answer Note LastModified by Organizat ion Details LastModified Time Do you use any illicit or recreational drugs? No Information not available 06/27/2022 Do you or have you ever used any other forms of tobacco or nicotine? No Information not available 06/27/2022 What is your level of alcohol consumption? Occasional Information not available 07/12/2025 Do you or have you ever used smokeless tobacco? Never used smokeless tobacco Information not available 07/09/2019 Are you currently employed? 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 Never used electronic cigarettes Information not available 07/09/2019 What is your exercise level? Moderate Information not available 02/11/2018 Mental Status Question Answer Note LastModified by Organization D etails LastModified Time Do you feel stressed (tense, restless, nervous, or anxious, or unable to sleep at night)? [id number] Information not available 06/27/2022 Family History Relationship Description Onset Age of this Age Resolved Age Notes LastModified by Organization Details LastModified Time Father Disease of liver [email or web address] Not available 2015 14:15:43 Father Diabetes mellitus [email or web address] Not available 2015 14:16:03 Medical History Condition Response Anesthesia complications N High Blood Pressure N Candidate for MyRisk panel N Autoimmune Condition N Lung Disease N Depression Y Defects or [...] Method Tubal Ligat ion Most Recent Mammogram 07/11/2024 Age at First Child 21 Obstetrics History GPAL:G 6 P 4 0 2 4 Type Value Full Term 4 Spontaneous 2 Living 4 Total 6 Past Encounters Encounter ID Performer Location Encounter Start Date Encounter Closed Date Diagnosis/Indication Diagnosis SNOMED-CT Code Diagnosis ICD10 Code Diagnosis IMO Codes Diagnosis Note [id number] MD DIXIE Pierce MD [address] [place] [address],[place] [address] 08/21/2016 13:48:12 08/21/2016 16:06:00 Dysfunctional uterine bleeding 99627817 N93.8 Perimenopa usal disorder 159093371 N95.9 [id number] MD DIXIE Pierce MD [address] [place] [address] [place] [address] 01/11/2017 10:10:53 01/11/2017 13:35:44 Specialized medical examination 69612131 Z01.419 Screening for malignant neoplasm of rectum 110439662 Z12.12 Screening mammography 24 902682 Z12.31 [id number] MD DIXIE Pierce MD [address] [place] [address],[facility] [place] [address] 02/11/2018 14:33:25 02/13/2018 08:31:41 Specialized medical examination 06942788 Z01.419 Screening for malignant neoplasm of rectum 447724027 Z12.12 Screening mammography 24 867604 Z12.31 Amenorrhea 30944702 N91. 2 [id number] MD DIXIE Pierce MD [address] [place] [address], [place] [address] 07/09/2019 14:38:46 07/09/2019 16:05:22 Specialized medical examination 80718701 Z01.419 Screening mammography 24 330633 Z12.31 [id number] MD DIXIE Pierce MD [address] [place] [address], CHAY[place] [address] 01/19/2020 13:54:32 01/19/2020 14:31:30 Vulvitis 65100129 N76.2 B96.89 Candidal vulvovaginitis 00614009 B37.3 [id number] MD DIXIE Pierce MD [address] [place] [address],[place] [address] 09/19/2020 14:40:59 09/19/2020 16:04:33 Specialized medical examination 51451445 Z01.419 Screening mammography 24 290711 Z12.31 [id number] MD DIXIE Pierce MD [address] [place] [address], [address] [place] [address] 06/27/2022 11:24:47 06/27/2022 11:56:24 Specialized medical examination 44847241 Z01.419 Screening mammography 24 563376 Z12.31 [id number] MD DIXIE Pierce MD [address] [place] [address] [place] [address] 07/18/2023 12:49:27 07/19/2023 13:16:30 Specialized medical examination 80651311 Z01.419 Screening for malignant neoplasm of rectum 486001149 Z12.12 Screening mammography 24 916697 Z12.31 [id number] MD DIXIE Pierce MD [address] [place] [address], [address] [place] [address] 02/06/2024 10:13:45 02/06/2024 14:20:40 Menopausal syndrome 858254568 N95.9 Alcohol dependence 42411 003 F10.20 [id number] MD DIXIE Pierce MD [address] [place] [address], [address] [place] [address] 05/04/2025 13:40:12 05/04/2025 14:52:05 Specialized medical examination 20987741 Z01.419 Screening for malignant neoplasm of rectum 541914818 Z12.12 Screening mammography 24 179162 Z12.31 [id number] MD DIXIE Pierce MD [address] [place] [address], [place] [address] 07/12/2025 13:57:42 07/12/2025 15:22:11 Menopausal syndrome 985054924 N95.9 Health Concerns Section Related Observation LastModified by Organization Detai ls LastModified Time None Recorded Concern Status LastModified by Organization Details LastModified Time None Recorded Advance Directives Directive None Recorded Payers Insurance Date Sequence Insurance Name Policy Number Policy Arora Covered Member ID Arora Member ID Guarantor Name 07/09/2025 1 [employer] - [employer] [id number] Teo Swanson [id number] Dulce Swanson 07/19/2023 1 [facility] Eayun [facility] (HMO) [id number] Teo Swanson [id number] Dulce Swanson 02/11/2018 1 [facility] INDEMNITY PLAN (INDEMNITY) [id number] Teo Swanson [id number] Dulce Swanson Notes Date Note Type Note Provider Name and Address Organization Details Recorded Time 06/27/2022 text/html She is here for annual [...] out, and why. Dixie Payne MD [address] [facility],[address], [place], [address], [facility], 06/27/2022 11:52:46 07/18/2023 text/html She is here [...] 2018.Declines all vaccinations. Dixie Payne MD [address] [facility],[address], [place], [id number], [place] - [facility], 07/18/2023 13:08:54 02/06/2024 text/html This visit is a phone telehealth visit. The patient consented to the visit by phone.The patient was at home at the time of the call and the provider and patient were the only people on the line.I was at [address] [facility], [address], [place], at the time [...] 2018.Declines all vaccinations. Dixie Payne MD [address] [facility],[address], [place], [address], [place] - [facility], 02/06/2024 12:53:19 05/04/2025 text/html She is here for annual, doing well, still having some hot flashes and, brain fog. Mammo 06/2023 was fine. ___ Telehealth from 01/2024: She would like to talk about getting hormones tested because she has had worsening vasomotor symptoms.She notes that she has not had a menses since 2017. She has had vasomotor symptoms all along but in the past several months her vasomotor symptoms have worsened. She notes she upped my wine intake 2 months ago.She as been drinking daily for many years, to unwind at the end of her day. She tried to stop in the past but was unable to go more than 1 day without alcohol. Note from 2022: She is here for annual, doing well. [...] 2018.Declines all vaccinations. Dixie Payne MD [address] [facility],[address], [place], [address], [facility], 05/04/2025 14:11:28 07/12/2025 text/html She is here to discuss her continued vasomotor symptoms. She has hot flashes, night sweats, insomnia for which she takes lorazepam. She had anxiety and a panic attack that took her to the ED. She has been trying to not take HRT but now feels this may be what she needs. No menses since 2017. Symptoms have bene ongoing since then. Note from 05/04/25: She is here for annual, doing well, still having some hot flashes and, brain fog. Mammo 06/2023 was fine. Dixie Payne MD [address], [place], [address], [facility], 07/12/2025 14:57:40 OBGyn Episode No OBEpisode recorded.
--- NOTE | 2025-07-28 12:30 | MHC.SL.IMP ---
Date of Plan of Treatment: 07/28/25 Onset of Symptoms/Illness: 06/03/25 Date Treatment Started: 07/28/25 Admitting Diagnosis: Chronic GERD Primary Speech & Language Diagnosis: R13.10 Dysphagia Reason for Today's Visit: 37753 Modified Barium Swallow Study Pre-evaluation Dietary Consistencies: Pre-evaluation Liquid Consistency: Pre-evaluation Medication Administration: Medical History: Modified Barium Swallow Study Fluoroscopic Evaluation of Swallowing Function CPT Code 19172 Evaluation Year: 2024 Reason for Study: Patient reporting difficulty swallowing. Referring Physician: Tsering GAOC Evaluating Clinician: Earlene Castillo MA, CCC-IRRIGATOR SPRINKLING SYSTEM Study Number: 1 Patient Name: Dulce Swanson Status: Outpatient, Ambulatory Age: 55 Sex: Female Medical History Medical History (Updated 07/21/25 @ 13:23 by Jahaira Cabrera MD) Chronic idiopathic constipation Fatigue Loud snoring Excessive daytime sleepiness Sleeping difficulties Depression with anxiety COVID-19 vaccination declined Refused influenza vaccine H. pylori infection Acne rosacea Acquired hypothyroidism Insomnia Surgical History H/O esophagogastroduodenoscopy H/O colonoscopy Hernia History of breast augmentation History of tubal ligation Current (pre-evaluation) Intake/Diet: Route: PO Diet Grade: Regular Liquid Consistencies: Thin Pre-Study Functional Oral Intake Scale (FOIS): 7- Total oral intake with no restrictions Pain: None reported at time of study SUBJECTIVE: Patient is a 55 year old female referred for a modified barium swallow study by the GI office. Patient reports consistent dysphagia with both solids and liquids. Patient reports feeling food get stuck on both sides of the thyroid cartilage and then below the ribcage. She feels as though it gets ?lodged in [her] esophagus.? She also reports sometimes experiencing pain with swallowing. Patient has history of hypothyroidism and chronic GERD, has been reporting less heartburn. Oral Motor Exam Facial Symmetry: Symmetrical Mouth Occlusion: Normal Oral-Facial Teeth Characteristics: Intact/Normal Oral-Facial Lip Pucker Description: Normal Oral-Facial Smile (Lips) Description: Normal Oral-Facial Puff Cheeks Description: Normal Tongue Size: Normal Tongue Excursion Description: Normal Tongue Range of Movement Description: Normal Tongue Speed of Movement Description: Normal Tongue Strength of Movement (against opposing pressure): Normal Tongue Movement Characteristics: Normal/Absent Is patient able to manage secretions?: Yes Food and Liquid Trials: Oral Impairment: Lip Closure: 1=Interlabial escape; no progression to anterior tip Oral Impairment: Tongue Control During Bolus Hold: 0=Cohesive bolus between tongue to palatal seal Oral Impairment: Bolus Preparation/Mastication: 0=Timely and efficient chewing and mashing Oral Impairment: Bolus Transport/Lingual Motion: 1= Delayed initiation of tongue motion Oral Impairment: Oral Residue: 2=Residue collection on oral structures Oral Impairment:Initiation of Pharyngeal Swallow: 2=Bolus head at posterior laryngeal surface of epiglottis Pharyngeal Impairment: Soft Palate Elevation: 0=No bolus between soft palate (SP)/pharyngeal wall (PW) Pharyngeal Impairment: Laryngeal Elevation: 1=Partial thyroid cartilage/arytenoids to epiglottic petiole movement Pharyngeal Impairment: Anterior Hyoid Excursion: 0=Complete anterior movement Pharyngeal Impairment: Epiglottic Movement: 0=Complete inversion Pharyngeal Impairment: Laryngeal Vestibular Closure:: 0=Complete: no air/contrast in laryngeal vestibule Pharyngeal Impairment: Pharyngeal Stripping Wave: 0=Present: complete Pharyngeal Impairment: Pharyngeal Contraction: Did not test Pharyngeal Impairment: Pharyngoesophageal Segment Openin=Partial distention/partial duration: partial obstruction of flow Pharyngeal Impairment: Tongue Base (TB) Retraction: 0=No contrast between tongue base and posterior pharyngeal wall Pharyngeal Impairment: Pharyngeal Residue: 0=Complete pharyngeal clearance Pharyngeal Impairment: Esophageal Clearance Upright Position: Did not test Impressions and Recommendations OBJECTIVE: Time-out: performed at 10:45 Evaluation Start: 10:35; Stop: 10:40 Patient Positioning: Standing Viewing Planes: LATERAL ONLY Contrast: MBSImP? Standardized Protocol using commercially prepared, standardized Barium viscosities, including: Varibar? THIN LIQUID (40% w/v, <15 cps) , Varibar? PUDDING (40% w/v, <2367-7817 cps) , 1/2 Shortbread Cookie (1 x1 x.25 ) MBSImP ID: [id number] MBSImP Results: Lip closure for intraoral bolus containment resulted in interlabial escape, without progression to the anterior lip. Tongue control during bolus hold maintained a cohesive bolus held between tongue to palate seal. Bolus preparation and mastication resulted in timely and efficient chewing and mashing. Bolus transport/lingual motion demonstrated delayed initiation of tongue motion. Oral residue was a collection on oral structures. Initiation of the pharyngeal swallow occurred as the bolus head was at the posterior laryngeal surface of the epiglottis. Soft palate elevation resulted in no bolus between the soft palate and the pharyngeal wall. Laryngeal elevation was decreased, with partial superior movement of the thyroid cartilage/partial approximation of the arytenoids to the epiglottic petiole. Anterior hyoid excursion demonstrated complete anterior movement. Epiglottic movement resulted in complete inversion. Laryngeal vestibular closure was complete, as indicated by no air or contrast within the laryngeal vestibule at the height of the swallow. Pharyngeal stripping wave was present and complete. Pharyngeal contraction could not be determined due to logistical reasons not related to physiologic impairment. Pharyngoesophageal segment opening demonstrated partial distension/partial duration, with partial obstruction of bolus flow. Tongue base retraction allowed no contrast between the retracted tongue base and the posterior pharyngeal wall. Pharyngeal residue was not present. There was complete pharyngeal clearance. Esophageal clearance in the upright position could not be assessed due to logistical reasons not related to physiologic impairment. Oral Impairment Score: 5 Pharyngeal Impairment Score: 2 (absence of score, component 13) Esophageal Impairment Score: --- (absence of score, component 17) Laryngeal Penetration and Aspiration: Neither penetration nor aspiration was observed in today's study with Cookie, Pudding-thick, Thin. ASSESSMENT: This exam was performed by the radiologist and the speech pathologist. Patient was standing for lateral view only. She fed herself independently and trialed the following consistencies: -Thin liquid (via individual and sequential cup sips) -Puree (mixture applesauce with barium paste) -Regular solid (shortbread cookies coated with barium pudding) Note good tongue control with no premature spillage from the oral cavity. Mastication was timely and efficient. Posterior lingual motion was mildly delayed. Pharyngeal swallow trigger initiated as the bolus reached the posterior laryngeal surface of the epiglottis. Post-swallow, there was minimal residue coating the tongue, which cleared on secondary swallows. No evidence of nasopharyngeal reflux. Partial laryngeal elevation, but with complete epiglottic inversion and complete laryngeal vestibular closure. No evidence of aspiration or penetration. Complete pharyngeal clearance seen. Liquid Intake Recommendation: Thin Liquid Intake Strategies: Unrestricted Dietary Recommendations: Regular Medication Administration: Whole with Liquid Please contact the pharmacy regarding appropriate crushable or liquid drug formulations that are available whenever modified delivery is recommended. Compensatory Strategies Recommended: Supervision during eating and or drinking: Recommended Treatments: Recommendation for Speech Therapy: NA:Typical Evaluation Text Comment: Intake Recommendations: Route: PO Diet Grade: Regular Liquid Consistencies: Thin Post-Study Functional Oral Intake Scale (FOIS): 7- Total oral intake with no restrictions No evidence of aspiration or penetration. Good oral and pharyngeal clearance. Suggested Referrals: The patient might benefit from a referral to: Gastroenterology Indication for Referral: Continue follow-up (consider barium swallow x-ray), patient complaining of globus sensation and ?food lodging in [her] esophagus? Therapy Recommendations: Diet modification and speech therapy are not warranted at this time, as the swallow is deemed functional in the oral and pharyngeal phase. Recommend follow-up with GI as indicated. Clinician - Supplemental, Miscellaneous Communication: It is important to note MBSS objective studies are snapshots in time and Patient function might vary with factors such as time of day or concomitant medical conditions. For this reason, the final treatment plan for this patient should rest with their medical care team. Additional recommendations should be considered with the totality of the Patient in mind. Thank for the opportunity to participate in the care of this patient. If you have any questions about the content of this report, please contact the [facility] at [facility]. Education: Education regarding findings from today's study and plans for therapy were provided to Patient only through Verbal Instruction. Understanding was expressed by the Patient only. Process Improvement Consultant Clinician/Clinical Fellow: No Supervisory Statement: N/A Speech Language Pathologist: Earlene Castillo M.A., CCC-IRRIGATOR SPRINKLING SYSTEM
== END 2025-07-28 10:20 | disposition home or self-care (01) ==
LOC: HO.XRAY 10:19
PROVIDERS: PCP Internal Medicine; Visit Provider Nurse Practitioner
DX: K58.2 Mixed irritable bowel syndrome (principal)
CPT/HCPCS: 74230; 92611

== ENCOUNTER → 2025-07-28 10:30 | Outpatient (BNV) | payer OTHER, SELFPAY | PROVIDERS: PCP Internal Medicine; Visit Provider Radiology Diagnostic Radiology | DX: R13.10 Dysphagia, unspecified (principal) | CPT/HCPCS: 74230 ==

== ENCOUNTER 2025-08-09 16:23 | Outpatient (AMB) | payer OTHER, SELFPAY ==
--- NOTE | 2025-08-09 16:26 | A.OFFPSYCH_ITS ---
Intake Intake Visit Reasons: follow up Pilot Captain Required: No Allergies No Known Allergies Allergy (Verified 07/21/25 13:05) Medication List - Last Reconciled 08/09/25 by Nory Green APRN azelaic acid 15% 1 appl topical BID duloxetine 30 mg orally Take one capsule daily x10 then increase to 2 caps daily; estradiol 1 mg PO DAILY levothyroxine (L-Thyroxine Sodium) 88 mcg PO DAILY 90 days Levoxyl (levothyroxine) 88 mcg PO DAILY NS lorazepam 0.5 mg PO DAILY PRN progesterone micronized 200 mg PO BEDTIME tretinoin 0.05% appl topical BEDTIME zolpidem 10 mg PO BEDTIME PRN HPI- Psychiatric Chief Complaint: follow up HPI Narrative: pt is here for follow up re: depression and anxiety. She reports improvement in symptoms after strting hormone replacement therapy. She did not start the cymbalta. she does not want to. She reports feeling much more optimistic. she denies SI or HI. Her PHQ9=10 down from 20 and her GAD7=is 12 down from 17. She uses the ativan a few times a week for anxiety attacks. Pt is sleeping better with ambien. she denies abuse of etoh or any other drugs. Past Psychiatric History: none Subjective Subjective Subjective Medication Compliance: Yes Side effects from medications: No Review of Systems Medical Review of Systems: unchanged Mental Status Exam Mental Status Exam Patient Appearance: Well Grooomed and Appropriate Patient Orientation: Person, Place, Time and Situation Level of Consciousness: Awake and Appropriate Patient Behavior: Appropriate, Cooperative and Fatigued Mood Description: Constricted, Depressed and Sad Affect Description: Constricted, Depressed and Sad Patient Cognition Impaired: No Ability to Follow Directions: Good Speech Pattern: Clear and Soft-Spoken Memory Description: Intact Hallucinations: None Delusions: Not Present Thought Process: Intact and Goal Oriented Thought Content: positive for Intact, positive for Goal Oriented and positive for Suicidal Ideation (passive; denies intent or plan and says she would not harm herself because of her children) Judgement: Good Assessment and Plan Assessment & Plan (1) Major depressive disorder, single episode with anxious distress: Status: Acute Code(s): F32.9 - Major depressive disorder, single episode, unspecified (2) JAKE (generalized anxiety disorder): Status: Acute Code(s): F41.1 - Generalized anxiety disorder Plan pt will continue ativan prn and ambien 5-10 mg at bedtime follow up with PCP may be re-referred in future if needed pt contemplating therpay and has a referral Medications: Refilled lorazepam 0.5 mg PO DAILY PRN 30 tabs 4RF anxiety anxiety attacks zolpidem Try taking initially half a tablet or 5 mg at bedtime , as needed for insom marino 10 mg PO BEDTIME PRN 30 tabs 4RF sleep G47.00 - Insomnia, unspecified Discontinued duloxetine Discontinued Reason: Doctor's Order 30 mg orally Take one capsule daily x10 then increase to 2 caps daily; 45 caps 0RF Counseling and coordination of Care Pt. Self Management counseling: Exercise, Maintenance-social rhythm, Mod caffeine/ETOH intake, Nutrition education and improvement, Sleep hygiene and General coping skills Medication management counseling: Effectiveness, Side effects, Dosing range, Duration, Drug interaction and Adherence Diagnosis and Prognosis Counseling: Accuracy of diagnosis, Prognosis over time, Impact of diagnosis on life functions, Impact of family relationship, Problematic behaviors secondary to diagnosis and Adequacy of current interventions Details: I spent 30 minutes reviewing the record, seeing the patient and documenting in the medical record. Counseling provided to the patient/caregiver as outlined below. Addressed patient/caregiver concerns regarding current medication regime including effective adherence. Addressed patient/caregiver concerns regarding diagnosis and prognosis including accuracy of diagnosis, prognosis over time, impact of diagnosis. Addressed patient/caregiver concerns regarding impact of recent stressors. ON LICENSE OF [facility] Medical History (Updated 07/21/25 @ 13:23 by Jahaira Cabrera MD) Chronic idiopathic constipation Fatigue Loud snoring Excessive daytime sleepiness Sleeping difficulties Depression with anxiety COVID-19 vaccination declined Refused influenza vaccine H. 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 Substance History: None Trauma History: None Coding Level of Care Code Est Pt Level 4 (48385) Diagnoses Major depressive disorder, single episode with anxious distress F32.9 JAKE (generalized anxiety disorder) F41.1
--- OUTSIDE RECORDS SUMMARY | 2025-08-09 19:13 | XMS_ITS | Patient Health Record ---
Author Organization [facility] Address [address] [place] [address] Care Team Providers Care Sales Associate Cashier Name Role Phone Mook Bradford Primary Care Provider Harman Sanchez Jr Unavailable Reason For Referral No Information Medications Medication SIG (Take, Route, Fr equency, Duration) Notes Start Date End Date Status MoviPrep 100 GM as directed before c olonoscopy Orally; Duration: 1 dose 01/06/2014 Active [place] Thyroid 120mg Active Problems Problem Type SNOMED Code ICD Code Onset Dates Problem Status W/U Status Risk Notes Problem Constipation (02782887) Constipation (564.00) Active confirmed Plan Of Treatment Future Test Test Name Order Date COLONOSCOPY 01/06/2014 Insurance Providers Payer Name Payer Address Payer Phone Subscriber Number Group Number Insured Name Patient Relationship to Insured Coverage Start Date Coverage End Date [employer] [address] [place] [address] [id number] FREIDA SHARPE Self - patient is the insured Medical (General) History Medical History History ICD Code hypothyroidism Surgical History Surgery Date(Month/Year) breast augmentation thyroid
--- OUTSIDE RECORDS SUMMARY | 2025-08-09 19:13 | XMS_ITS | Data Portability ---
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 Procedures None recorded . Surgeries None recorded . Imaging MAMMO, screenin g, digital, bilatera l - Breast Aspirati on and/or Biopsy if needed 2024 025 corey [facility], [address], [place], [address], 5 14:52:05 MAMMO, screenin g, digital, bilatera l - Breast Aspirati on and/or Biopsy if needed 2022 023 [facility]), [address], [place], [address], 5 07:12:08 MAMMO, screenin g, digital, bilatera l 2021 022 [facility]), [address], [place], [address], 4 07:24:15 Medication Orders estradio l 1 mg tablet 2024 025 [facility], [address] [place], [address], 5 14:39:50 progeste erik microniz ed 200 mg capsule 2024 025 [facility], [address] [place], [address], 5 14:39:49 Patient TargetsNo targets recorded. Patient Instructions Encounter Date Encounter Id Patient Instructions Last Modified By Organization Details Last Modified Time 06/27/2022 [id number] learning about healthy weight Not available 06/27/2022 [...] the breast. Not available 06/27/2022 11:52:29 07/18/2023 [id number] learning about healthy weight Not available 07/18/2023 [...] the breast. Not available 07/18/2023 13:08:40 02/06/2024 [id number] This visit is a phone telehealth visit. The patient consented to the visit by phone. The patient was at home at the time of the call and the provider and patient were the only people on the line. I was at [address] [facility], [address], [place], [place], at the time of the call. [...] 22 minutes Not available 02/06/2024 12:45:55 05/04/2025 [id number] learning about healthy weight Not available 05/04/2025 [...] vasomotor symptoms. Not available 05/04/2025 14:11:13 07/12/2025 [id number] She is here to discuss her continued [...] Detail LastModifiedTime 06/27/20 22 06/27/2022 PAP1C ASE [email or web address] ThinP rep Pap, Image d: NEGAT ANDREA [...] . LPS neg, [z01. 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 Perfo rmed at [facility] ate Refer ence [facility] Cytol ogy, [address] [place] [facility] zulema Histo ry (othe r): Z01.4 19, routi ne scree n, LPS neg Phone #: [phone], On-[place] ll Patho logis t: [id number] Not Available [facility] (Centralized Electronic Ordering - All Locations) Patient Can Go To The Location Of Their Choice, [address] 07/24/2023 13:28:43 05/04/20 25 05/06/2025 IGP, RFX APTIM A HPV ASCU diagnosis: Commen t NEGAT ANDREA FOR INTRA EPITH ELIAL LESIO N OR MALIG EVELYNE . Not Available [facility] ([facility]) [address] [place], [address], 05/06/2025 10:16:06 05/04/20 25 05/06/2025 IGP, RFX APTIM A HPV ASCU specimen adequacy: Violeta t Satis facto ry for evalu ation . No endoc ervic al compo nent is ident ified . Not Available [facility] ([facility]) [address] [place], [address], 05/06/2025 10:16:06 05/04/20 25 05/06/2025 IGP, RFX APTIM A HPV ASCU clinician provided ICD10: Violeta nieto Z01.4 19 Not Available [facility] ([facility]) [address] [place], [address], 05/06/2025 10:16:06 05/04/20 25 05/06/2025 IGP, RFX APTIM A HPV ASCU performed by: Violeta Obrien, Cytol ogist (ASCP ) Not Available [facility] ([facility]) [address] [place], [address], 05/06/2025 10:16:06 05/04/20 25 05/06/2025 IGP, RFX APTIM A HPV ASCU . . Not Available [facility] ([facility]) [address] [place], [address], 05/06/2025 10:16:06 05/04/20 25 05/06/2025 IGP, RFX [...] ts do occur . Not Available [facility] ([facility]) [address] [facility], [place], [address], 05/06/2025 10:16:06 05/04/20 25 05/06/2025 IGP, RFX APTIM A HPV ASCU test methodology: Commen t This liqui d based ThinP rep(R ) pap test was danitza keyes with the use of an image guide guille boone. Not Available [facility] ([facility]) [address] [facility], [place], [address], 05/06/2025 10:16:06 05/04/20 25 05/06/2025 IGP, RFX APTIM A HPV ASCU . Commen t The HPV DNA refle x crite maury were not met with this speci men resul t there fore, no HPV testi ng was perfo rmed. Not Available [facility] ([facility]) [address] [facility], [place], [address], 05/06/2025 10:16:06 07/11/20 23 07/11/2023 MAMMO , danitza blanco, digit al, bilat eral No observ ation record ed. [facility] [address], [place], [address], 07/12/2023 07:58:51 Result Notes None recorded. Problems Name Problem SNOMED Code Status Onset Date Resolution Date Notes Provider Name and Address Organization Details Recorded Time Hypothyroi dism 38204660 Active 2015 Myriam oneal [place] [facility], 6 14:14:45 Dysfunctio nal uterine bleeding Active 2015 Dixie Payne MD [address] [facility], [address], [place], [address] [place] - [facility], 6 14:59:08 Perimenopa usal disorder 534675781 Active 2015 Dixie Payne MD [address], [place], [address], [place] - [facility], 6 14:59:15 No consent - influenza immunizati on 939139050 Active 2019 she identifies as an anti-vaxx er although her children are vaccinated for all but influenza. Dixie Payne MD [address], [place], [address], [place] [facility], 0 15:11:01 Screening for malignant neoplasm of rectum Active 2021 Dixie Payne MD [address], [place], [address], [place] [facility], 2 11:50:55 Menopausal syndrome 716152058 Active 2023 Dixie Payne MD [address], [place], [address], [place] [facility], 4 12:28:03 Alcohol dependence 03049081 Active 2023 Dixie Payne MD [address], [place], [address], [place] - [facility], 4 12:50:32 Problem Notes None recorded. Procedures Surgical History Date Name Laterality Status Provider Name and Address Organization Details Recorded Time 4 Most Recent Mammogram completed Chayo Fermin in [facility], 05/04/2025 13:49:06 4 Tubal Ligation completed Myriam loza in [facility], 08/21/2016 14:21:23 6 Other completed Myriam Patricio s in [facility], 08/21/2016 14:22:41 9 Breast Implants completed Dixie Payne MD [address], [place], [address], [place] [facility], [...] completed Not Available Not Available Not Available [place] Thyroid 60 mg tablet 08/21 completed Not [...] completed Not Available Not Available Not Available [place] Thyroid 90 mg tablet 08/21 completed Not [...] completed Not Available Not Available Not Available [place] Thyroid 15 mg tablet 08/21 completed Not [...] completed Not Available Not Available Not Available [employer]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[employer] Thyroid 120 mg tablet 07/09 completed Not [...] Address Organization Details Last Updated DateTime 05/04/2025 84650.1 g 26.9 kg/m2 156.21 cm 75 /min 150/77 mm[Hg] Chayo Fermin in [facility], 05/04/2025 13:45:21 Date Recorded Body weight Body mass index (BMI) Body height Heart rate Systolic And Diastolic Provider Name and Address Organization Details Last Updated DateTime 06/27/2022 93013.64 g 23.4 kg/m2 156.21 cm 79 /min 147/68 mm[Hg] Katherine Fermin in [facility], 06/27/2022 11:27:34 Date Recorded Body height Body mass index (BMI) Body weight Heart rate Systolic And Diastolic Provider Name and Address Organization Details Last Updated DateTime 07/12/2025 156.21 cm 25.5 kg/m2 35860.59 g 67 /min 128/74 mm[Hg] Chayo Fermin in [facility], 07/12/2025 14:01:22 Date Recorded Body weight Body mass index (BMI) Body height Heart rate Systolic And Diastolic Provider Name and Address Organization Details Last Updated DateTime 07/18/2023 71143.34 g 25.8 kg/m2 156.21 cm 67 /min 123/74 mm[Hg] Katherine Fermin in [facility], 07/18/2023 12:55:44 Social History Question Answer Notes LastModified by Organizat ion Details LastModified Time Tobacco Smoking Status Never Smoker Myriam [place] Gan in [facility], 08/21/2016 14:16:27 What Is Your Level Of [...] 08/21/2016 Who Is Your Employer? 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 Never used electronic cigarettes Information not available 07/09/2019 What is your exercise level? Moderate Information not available 02/11/2018 Mental Status Question Answer Note LastModified by Organization D etails LastModified Time Do you feel stressed (tense, restless, nervous, or anxious, or unable to sleep at night)? [id number] Information not available 06/27/2022 Family History Relationship [...] ICD10 Code Diagnosis IMO Codes Diagnosis Note [id number] MD DIXIE Pierce MD [address] [place] [address],[place] [address] 08/21/2016 13:48:12 08/21/2016 16:06:00 Dysfunctional uterine bleeding 28950047 N93.8 Perimenopa usal disorder 009091146 N95.9 [id number] MD DIXIE Pierce MD [address] [place] [address],[facility] [place] [address] 01/11/2017 10:10:53 01/11/2017 13:35:44 Specialized medical examination 49643859 Z01.419 Screening for malignant neoplasm of rectum 800186112 Z12.12 Screening mammography 24 217007 Z12.31 [id number] MD DIXIE Pierce MD [address] [place] [address],[facility] [place] [address] 02/11/2018 14:33:25 02/13/2018 08:31:41 Specialized medical examination 56972108 Z01.419 Screening for malignant neoplasm of rectum 353647160 Z12.12 Screening mammography 24 999173 Z12.31 Amenorrhea 02103402 N91. 2 [id number] MD DIXIE Pierce MD [address] [place] [address], [place] [address] 07/09/2019 14:38:46 07/09/2019 16:05:22 Specialized medical examination 75677321 Z01.419 Screening mammography 24 909130 Z12.31 [id number] MD DIXIE Pierce MD [address] [place] [address], [place]AY[place] Susanne [place] [address] 01/19/2020 13:54:32 01/19/2020 14:31:30 Vulvitis 26349929 N76.2 B96.89 Candidal vulvovaginitis 52260954 B37.3 [id number] MD DIXIE Pierce MD [address] [place] [address],[place] [address] 09/19/2020 14:40:59 09/19/2020 16:04:33 Specialized medical examination 37928595 Z01.419 Screening mammography 24 084280 Z12.31 [id number] MD DIXIE Pierce MD [address] [place] [address], [address] Susanne [place] [address] 06/27/2022 11:24:47 06/27/2022 11:56:24 Specialized medical examination 25413057 Z01.419 Screening mammography 24 612906 Z12.31 [id number] MD DIXIE Pierce MD [address] [place] [address],[facility] Susanne [place] [address] 07/18/2023 12:49:27 07/19/2023 13:16:30 Specialized medical examination 51828068 Z01.419 Screening for malignant neoplasm of rectum 223512205 Z12.12 Screening mammography 24 158445 Z12.31 [id number] MD DIXIE Pierce MD [address] [place] [address], [address] Susanne [place] [address] 02/06/2024 10:13:45 02/06/2024 14:20:40 Menopausal syndrome 058786547 N95.9 Alcohol dependence 39263 003 F10.20 [id number] MD DIXIE Pierce MD [address] [place] [address], [address] Sus[place] [address] 05/04/2025 13:40:12 05/04/2025 14:52:05 Specialized medical examination 39110996 Z01.419 Screening for malignant neoplasm of rectum 463421337 Z12.12 Screening mammography 24 182203 Z12.31 [id number] MD DIXIE Pierce MD [address] [place] [address], [place] [address] 07/12/2025 13:57:42 07/12/2025 15:22:11 Menopausal syndrome 644587520 N95.9 Health Concerns Section Related Observation LastModified by Organization Detai ls LastModified Time None Recorded Concern Status LastModified by Organization Details LastModified Time None Recorded Advance Directives Directive None Recorded Payers Insurance Date Sequence Insurance Name Policy Number Policy Arora Covered Member ID Arora Member ID Guarantor Name 07/09/2025 1 [employer] - [employer] [id number] Teo Swanson [id number] Dulce Swanson 07/19/2023 1 RUST Flattr [facility] (HMO) [id number] Teo Swanson [id number] Dulce Swanson 02/11/2018 1 [facility] INDEMNITY PLAN (INDEMNITY) [id number] Teo Swanson [id number] Dulce Swanson Notes Date Note Type Note [...] out, and why. Dixie Payne MD [address] [facility],[address], [place], [address], [facility], 06/27/2022 [...] 2018.Declines all vaccinations. Dixie Payne MD [address] [facility],[address], [place], [address], [place] - [facility], 07/18/2023 13:08:54 02/06/2024 text/html This visit is [...] 2018.Declines all vaccinations. Dixie Payne MD [address] [facility],[address], [place], [address], [place] - [facility], 02/06/2024 12:53:19 05/04/2025 text/html She is here [...] 2018.Declines all vaccinations. Dixie Payne MD [address] [facility],[address], [place], [address], [employer] - [facility], 05/04/2025 14:11:28 07/12/2025 text/html She is here [...] MD [address], [place], [address], [employer] - [facility], 07/12/2025 14:57:40 OBGyn Episode No OBEpisode recorded.
== END 2025-08-09 18:02 | disposition home or self-care (01) ==
LOC: HO.HOP 16:23
PROVIDERS: PCP Internal Medicine; Visit Provider Clinical Nurse Specialist Psychiatric/Mental Health
DX: F32.9 Major depressive disorder, single episode, unspecified (principal); F41.1 Generalized anxiety disorder
CPT/HCPCS: 99214

== ENCOUNTER 2025-09-28 13:25 | Outpatient (AMB) | payer OTHER, SELFPAY ==
--- NOTE | 2025-09-28 13:38 | A.OFFVIS_ITS ---
Vital Signs 09/28/25 13:52 Height 5 ft 1 in Weight 127 lb 13.89 oz BMI 24.2 BP 126/72 Blood Pressure Location Rt brachial Position Sitting Pulse 75 Intake Visit Reasons: Difficulty Swallowing Intake Note: Dulce presents to in office follow up for difficulty swallowing. CC; Patient c/o feeling like a lump in her throat sometime, sharp abdominal pain, feeling light headed, nausea, and been unable to have a BM unless she takes a laxative. Per patient she was told by her PCP that most recent labs showed something elevated related to her liver and to discuss with GI. 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: No Accompanied by: Self / Same As Patient Allergies No Known Allergies Allergy (Verified 09/28/25 13:57) HPI HPI Difficulty Swallowing: Details: Assessment & Plan (1) Irritable bowel syndrome with both constipation and diarrhea: Code(s): K58.2 - Mixed irritable bowel syndrome Category: Medical (2) Anal sphincter incontinence: Comment: Patient was supposed to have anorectal manometry at [facility]; RECTAL LAXITY NOTED ON LAST SCOPE CAM SINCE SHE HAS FECAL URGENCY R/T THIS AND SHE FEELS SUBJECTIVELY THIS IS THE PROBLEM Code(s): R15.9 - Full incontinence of feces Category: Medical (3) GERD (gastroesophageal reflux disease): Code(s): K21.9 - Gastro-esophageal reflux disease without esophagitis Category: Medical Plan He is presenting today with a new complaint of dysphagia. She had an EGD in 2019 where the esophagus was unremarkable but there was H pylori gastritis. She had a barium swallow in 2019 that was also unremarkable except for GERD. She does not appear to be on any acid reducing therapy at this time. - The patient is a 55-year-old female presenting with constipation and dysphagia. - Alternating between constipation and diarrhea with current constipation persisting for two weeks. - Episodes involve hard stools and ineffective enemas, alongside an embarrassing diarrhea incident at work. - Constipation impairs her ability to function in the mornings, limiting social and occupational activities. - Reports recent swallowing difficulties with both liquids and solids, necessitating excessive chewing. This occurs above the voice box area in the high oropharyngeal area and then again towards the bottom of the ribcage. - Previous diagnostic findings ruled out Crohn's disease; past colonic biopsies and stool tests were negative. - Gastroesophageal Reflux Disease (GERD) was identified during earlier evalu ations, but treatment specifics were not discussed. -she is requesting an FMLA be filled out for intermittent absences about twice a month as we did for her last year. -Psychological: Reports feeling depressed due to social embarrassment from gastrointestinal symptoms; no other psychiatric symptoms discussed. PLAN - Initiate a modified barium swallow to assess swallowing difficulties. - Repeat the upper endoscopy to investigate the current status of the gastrointestinal tract. - Pursue anorectal manometry for further analysis of bowel dysfunction through [facility] arrangements. - Engage a second gastroenterology consultation WITH 1 OF OUR PHYSICIANS to support ongoing diagnostic and therapeutic endeavors. - Encourage flexible work arrangements given the patient's ongoing challenges with morning symptoms. (to date her workup has included a negative fecal calprotectin, a negative RAST allergy panel, negative GI panel for infectious causes, negative ova and parasite test, no gallstones on ultrasound, a relatively unremarkable upper endoscopy and colonoscopy in 2019 with normal biopsies. She says she has used fiber in the past without good success, we have tried treating the constipation to see if it is the driving process without success, we have tried treating the diarrhea to see if that is the driving underlying process without success. We have been trying to get an anorectal manometry test for quite some time as the patient seems to feel that she can not hold her stools and there was some evidence of rectal laxity during her last colonoscopy. I have referred her again to [facility] since we have been unable to get her in at [facility].) Orders: Orders FL Modified Barium Swallow Today K58.2 - Mixed irritable bowel syndrome EGD - GI Use Only Today K58.2 - Mixed irritable bowel syndrome Barium swallow MODIFIED 07/28/25 FINDINGS: Following oral administration of thick barium, semisolid food is normal. Bolus from the oral cavity, pharynx and esophagus without obstruction, narrowing or stricture. There is no laryngeal penetration and aspiration seen with thin barium. No retention of barium of solid food in the valleculae or piriform sinuses. A nonspecific esophageal web is seen in the cervical esophagus along the anterior margin but no obstruction. FLUOROSCOPY TIME: 45 seconds DOSE AREA PRODUCT: 449.9 uGy-m2 (microgray-meter squared) FL/FL Modified Barium Swallow IMPRESSION: Unremarkable modified barium swallow exam. SPEECH THERAPY EVAL Laryngeal Penetration and Aspiration: Neither penetration nor aspiration was observed in today's study with Cookie, Pudding-thick, Thin. ASSESSMENT: This exam was performed by the radiologist and the speech pathologist. Patient was standing for lateral view only. She fed herself independently and trialed the following consistencies: -Thin liquid (via individual and sequential cup sips) -Puree (mixture applesauce with barium paste) -Regular solid (shortbread cookies coated with barium pudding) Note good tongue control with no premature spillage from the oral cavity. Mastication was timely and efficient. Posterior lingual motion was mildly delayed. Pharyngeal swallow trigger initiated as the bolus reached the posterior laryngeal surface of the epiglottis. Post-swallow, there was minimal residue coating the tongue, which cleared on secondary swallows. No evidence of nasopharyngeal reflux. Partial laryngeal elevation, but with complete epiglottic inversion and complete laryngeal vestibular closure. No evidence of aspiration or penetration. Complete pharyngeal clearance seen. EGD BIOPSY TODAY'S VISIT [facility] Medical History (Updated 09/28/25 @ 14:37 by SLOANE Gabriel) Chronic idiopathic constipation Fatigue Loud snoring Excessive daytime sleepiness Sleeping difficulties Depression with anxiety COVID-19 vaccination declined Refused influenza vaccine H. 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 Cognitive needs: No Hearing needs: No Vision needs: Yes Review of Systems Const Denies fatigue and Reports weight loss (16 lb since May of 2025 to today which is ) ENT Reports Normal hearing present, Denies dysphagia, Denies odynophagia, Denies throat swelling and Denies tongue swelling Card Reports no additional complaints Resp Reports no additional complaints GI Details: Reports abdominal pain, Denies melena, Denies bloating, Denies hematochezia, Reports constipation, Denies GI cramping, Denies dysphagia, Denies excessive flatus, Denies early satiety, Denies heartburn, Denies diarrhea, Reports loose stools, Denies nausea, Denies odynophagia, Denies vomiting and Denies hematemesis Skin/Breast Denies pruritus, Denies lesions, Denies rash and Denies jaundice Neuro Reports Normal hearing present and Denies Abnormal speech present Endo Denies fatigue Aller/Immun Denies throat swelling and Denies tongue swelling Physical Exam Vital Signs: Last Vital Signs Pulse 75 09/28/25 13:52 BP 126/72 09/28/25 13:52 BMI result Body Mass Index 24.2 Const General: cooperative, no acute distress, well developed and well groomed Nutritional Appearance: average body habitus and well nourished Orientation/consciousness: oriented to person, oriented to place and oriented to time Limitations: No language barrier HEENT Head: Yes normocephalic and Yes atraumatic Eyes General: appearance normal, both eyes and all related structures Pupils: Equal, round and reactive pupils present Neck Neck: Yes normal visual inspection and Yes no lymphadenopathy Thyroid: Thyroid normal Resp Effort & Inspection: normal respiratory effort and able to speak in complete sentences Auscultation: clear to auscultation bilaterally Cardio Rate: regular rate Rhythm: regular rhythm Heart sounds: Normal, physiologic split S2 sound present Peripheral pulses: radial pulses present and posterior tibial pulses present GI Inspection: No distended and No Abdominal panniculus present Palpation (GI): Soft to palpation, Tenderness to palpation present (GI) in the LUQ, no guarding, not rigid and No hepatosplenomegaly present Percussion: Yes normal to percussion Auscultation: normal bowel sounds Rectal Exam - Female: deferred Skin General skin exam: no rashes or lesions noted, turgor normal, skin not dry, no jaundice, No spider nevi and no striae Rashes: no rashes Nails: normal Neuro General: oriented to person, oriented to place and oriented to time Cranial nerves: Yes Equal, round and reactive pupils present and Yes Normal hearing present Speech: No Abnormal speech present Extrem General: Yes normal to inspection, No clubbing, No cyanosis and No edema Psych Appearance: grossly normal and well kempt Mental Status: mental status grossly normal Speech and movement: Normal speech and movement present Affect: normal affect Attitude: cooperative Thought process: Normal thought process present and not confabulating Thought content: Normal thought content present Insight: Fair insight present (Psych) and Limited insight present (Psych) Judgement: Fair judgement present (Psych) and Limited judgement present (Psych) Results Reviewed Results Reviewed: Laboratory Tests 07/27/25 13:10 WBC 5.7 Hgb 14.0 Hct 41.8 MCV 88.6 MCH 29.7 Plt Count 277 Estimated GFR > 60 Total Bilirubin 1.4 H AST 49 H ALT 79 H Alkaline Phosphatase 89 TSH 0.08 L Free T4 1.30 Assessment & Plan Assessment & Plan (1) Chronic idiopathic constipation: Code(s): K59.04 - Chronic idiopathic constipation Category: Medical (2) Transaminitis: Code(s): R74.01 - Elevation of levels of liver transaminase levels Category: Medical (3) Elevated ferritin: Code(s): R79.89 - Other specified abnormal findings of blood chemistry Category: Medical (4) Elevated bilirubin: Code(s): R17 - Unspecified jaundice Category: Medical (5) Generalized abdominal pain: Code(s): R10.84 - Generalized abdominal pain Category: Medical (6) Weight loss: Code(s): R63.4 - Abnormal weight loss Category: Medical Plan SHE IS NOT CURRENTLY TAKING ANY PRESCRIBED GI MEDICATIONS. Subjective Patient presents with persistent ?lump in the throat? sensation, unintentional weight loss, and diffuse abdominal pain with constipation. She reports throbbing abdominal pains that migrate between suprapubic, left upper quadrant, and right upper quadrant regions, sometimes circumferentially around the umbilicus; episodes last a couple of days and then shift location. Today she feels very tender and sore around the umbilical area. Pain can be provoked by bending over, described as a ?knotted? feeling that can trap her in position. Constipation is severe with a sense that her ?system stopped working,? requiring enemas or stimulant laxatives to have a bowel movement. She alternates senna and bisacodyl (Dulcolax): Dulcolax causes cramping with a single day of evacuation, while senna leads to two days of diarrhea, making it difficult to work or leave home; she feels better after evacuation. She has tried linaclotide previously at 145 mcg then 290 mcg without benefit; she notes docusate (Colace) seems more helpful but still requires advance planning due to loose stools. She is eating less because of constipation but maintains hydration and a healthy diet. Dysphagia symptoms have improved and now occur infrequently, though she intermittently perceives a globus sensation. Relevant Past Medical, Social, and Family History - Hypothyroidism (levothyroxine; recent dose decrease from 100 mcg to [address] Grady) - Chronic insomnia (uses zolpidem); lorazepam as needed - Prior short course of menopausal hormone therapy (estradiol and progesterone), discontinued ~2 months ago due to mood changes - Family history of diabetes Objective - Laboratory results reviewed: AST 49 U/L, ALT 79 U/L, total bilirubin 1.4 mg/dL (most recent, 07/27); prior (08/02/2023) total bilirubin 1.2 mg/dL, AST 28 U/L, ALT 30 U/L, alkaline phosphatase normal - Prior swallow study (barium swallow with speech therapy): overall normal; noted proximal esophageal web Assessment & Plan Generalized abdominal pain: Diffuse, migratory, throbbing pain with josselyn- umbilical tenderness by history; pattern suggests bowel-related pain in the setting of significant constipation. - Order CT abdomen/pelvis (CAT scan) - Reorder EGD and colonoscopy for comprehensive evaluation - Proceed with ordered laboratory panel today - Return precautions reviewed; proceed to ED if pain becomes severe, persistent with systemic signs, or associated with obstruction symptoms Chronic constipation with difficult regulation (history of failed linaclotide): Refractory symptoms requiring enemas and stimulant laxatives with intolerable diarrhea/cramping; linaclotide 145?290 mcg ineffective. - Continue interim regimen as tolerated until evaluation is complete - Assess coverage and consider alternative secretagogues/GC-C agonists or other agents (e.g., plecanatide, tenapanor) depending on insurance approval and tolerance - Coordinate with scheduling to align bowel prep needs with upcoming colonoscopy Unintentional weight loss: Ongoing; likely multifactorial including decreased intake due to constipation; requires evaluation for gastrointestinal and hepatic causes. - Include in workup with CT abdomen/pelvis, EGD, and colonoscopy - Monitor weight trend Elevated liver enzymes (transaminitis) and hyperbilirubinemia: Mild AST/ALT elevation with chronically borderline-elevated bilirubin. Pattern may be consistent with benign unconjugated hyperbilirubinemia (e.g., Gilbert?s), but further evaluation indicated. - Obtain comprehensive hepatic workup today, including direct (conjugated) bilirubin and additional liver studies as ordered - Review medications and recent changes; HRT discontinued prior to current labs per history Dysphagia/globus sensation: Symptoms improved; prior barium swallow normal with proximal esophageal web noted. - Proceed with EGD to evaluate esophageal web and exclude structural lesions, given intermittent symptoms Follow-up: Return visit in approximately 10 weeks to review lab results and any completed imaging/endoscopic studies. Scheduling to contact patient for CT, EGD, and colonoscopy. Continue current diet/hydration as tolerated pending further guidance. EGD/COLONOSCOPY BIOPSY Orders: Orders Alpha Fetoprotein Today K59.04 - Chronic idiopathic constipation, R17 - Unspecified jaundice, R74.01 - Elevation of levels of liver transaminase levels, R79.89 - Other specified abnormal findings of blood chemistry Liver Fibrosis Pnl Today K59.04 - Chronic idiopathic constipation, R17 - Unspecified jaundice, R74.01 - Elevation of levels of liver transaminase levels, R79.89 - Other specified abnormal findings of blood chemistry Smooth Muscle Antibody Today K59.04 - Chronic idiopathic constipation, R17 - Unspecified jaundice, R74.01 - Elevation of levels of liver transaminase levels, R79.89 - Other specified abnormal findings of blood chemistry Hepatitis A,B,C Profile Today K59.04 - Chronic idiopathic constipation, R17 - Unspecified jaundice, R74.01 - Elevation of levels of liver transaminase levels, R79.89 - Other specified abnormal findings of blood chemistry HIV Ab/Ag Today K59.04 - Chronic idiopathic constipation, R17 - Unspecified jaundice, R74.01 - Elevation of levels of liver transaminase levels, R79.89 - Other specified abnormal findings of blood chemistry Lipase Today K59.04 - Chronic idiopathic constipation, R17 - Unspecified bailey dice, R74.01 - Elevation of levels of liver transaminase levels, R79.89 - Other specified abnormal findings of blood chemistry Bilirubin Direct Today K59.04 - Chronic idiopathic constipation, R17 - Unspecified jaundice, R74.01 - Elevation of levels of liver transaminase levels, R79.89 - Other specified abnormal findings of blood chemistry CT abdomen pelvis w IV con Today R10.84 - Generalized abdominal pain Comprehensive Met. Panel Today K59.04 - Chronic idiopathic constipation, R17 - Unspecified jaundice, R74.01 - Elevation of levels of liver transaminase levels, R79.89 - Other specified abnormal findings of blood chemistry Ferritin Today K59.04 - Chronic idiopathic constipation, R17 - Unspecified jaundice, R74.01 - Elevation of levels of liver transaminase levels, R79.89 - Other specified abnormal findings of blood chemistry Mitochondrial Antibody Today K59.04 - Chronic idiopathic constipation, R17 - Unspecified jaundice, R74.01 - Elevation of levels of liver transaminase levels, R79.89 - Other specified abnormal findings of blood chemistry Transglutaminase IgA Today K59.04 - Chronic idiopathic constipation, R17 - Unspecified jaundice, R74.01 - Elevation of levels of liver transaminase levels, R79.89 - Other specified abnormal findings of blood chemistry Transglutaminase Ab IgG Today K59.04 - Chronic idiopathic constipation, R17 - Unspecified jaundice, R74.01 - Elevation of levels of liver transaminase levels, R79.89 - Other specified abnormal findings of blood chemistry Hemoglobin A1c Today K59.04 - Chronic idiopathic constipation, R17 - Unspecified jaundice, R74.01 - Elevation of levels of liver transaminase levels, R79.89 - Other specified abnormal findings of blood chemistry Referrals GI Procedure Notification R10.84 - Generalized abdominal pain, R63.4 - Abnormal weight loss Medications: New bisacodyl (Dulcolax (bisacodyl)) 10 mg (2 x 5 mg) PO BEDTIME 4 tabs 0RF 2 days peg 3350-electrolytes [id number] -5.86 gram (Golytely) until fecal effluent is clear; do not exceed a total volume of 2,000 mL 240 mL PO Q10M 4,000 mL 0RF 1 day Z12.11 - Encounter for screening for malignant neoplasm of colon Coding Level of Care Code Est Pt Level 4 (22634) Diagnoses Chronic idiopathic constipation K59.04 Transaminitis R74.01 Elevated ferritin R79.89 Elevated bilirubin R17 Generalized abdominal pain R10.84 Weight loss R63.4 Time Spent (min) 37
[2025-09-28 13:52] VITALS: BP 126/72; PULSE 75; BMI 24.2
--- OUTSIDE RECORDS SUMMARY | 2025-09-28 17:30 | XMS_ITS | Data Portability ---
Author Organization [place] - [facility],, DIXIE PAYNE MD Address [address] [address] Care Team Providers Care Pot Puller Name Role Phone JOSEF ERVIN Primary Care Provider Assessment No assessment recorded. Plan of Treatment Reminders Order Date Submit Date Provider Last Modified By Organization Details Last Modified Time Details Appointments None recorded . Lab cytology report, thin prep, smear or scraping , cervical or vaginal 2024 025 CHARELNE [facility] (Centralized Electronic Ordering - All Locations), Patient Can Go To The Location Of Their Choice, [address] 5 10:16:06 pap test, thinprep , cervical 2022 023 [facility] (Centralized Electronic Ordering - All Locations), Patient Can Go To The Location Of Their Choice, [address] 3 07:30:07 pap test, thinprep , cervical 2021 022 [facility], Cytopathology Service, [address] [place], [address], 07:52:32 Referral None recorded . Procedures None recorded . Surgeries None recorded . Imaging MAMMO, screenin g, digital, bilatera l - Breast Aspirati on and/or Biopsy if needed [address] [facility] Orders, [address], [place], [address], 5 15:48:46 MAMMO, screenin g, digital, bilatera l - Breast Aspirati on and/or Biopsy if needed 2022 023 [facility]), [address], [place], [address], 5 07:12:08 MAMMO, screenin g, digital, bilatera l 2021 022 [facility]), [address], [place], [address], 4 07:24:15 Medication Orders estradio l 1 mg tablet 2024 025 [facility], [address] [place], [address], 5 14:39:50 progeste erik microniz ed 200 mg capsule 2024 025 [facility], [address] [place], [address], 5 14:39:49 Patient TargetsNo targets recorded. Patient Instructions Encounter Date Encounter Id Patient Instructions Last Modified By Organization Details Last Modified Time 06/27/2022 [id number] learning about healthy weight Not available 06/27/2022 [...] the breast. Not available 06/27/2022 11:52:29 07/18/2023 [id number] learning about healthy weight Not available 07/18/2023 [...] the breast. Not available 07/18/2023 13:08:40 02/06/2024 [id number] This visit is a phone telehealth visit. The patient consented to the visit by phone. The patient was at home at the time of the call and the provider and patient were the only people on the line. I was at [address] [facility], [address], [place], [place], at the time of the call. [...] 22 minutes Not available 02/06/2024 12:45:55 05/04/2025 [id number] learning about healthy weight Not available 05/04/2025 [...] vasomotor symptoms. Not available 05/04/2025 14:11:13 07/12/2025 [id number] She is here to discuss her continued [...] Detail LastModifiedTime 06/27/20 22 06/27/2022 PAP1C ASE [id number] ThinP rep Pap, Image d: NEGAT ANDREA [...] . LPS neg, [z01. 419] Not Available [facility], Cytopathology Service [address] [place], [address], 07/04/2022 11:16:11 07/18/20 23 07/18/2023 [facility] CYTOL OGY results Patie nt Name: WENDY KIM nt : 1969 (Age: 53) Lab Acces guillermo #: [id number] Colle ction Date: 2022 Acces guillermo Date: 2022 Sign Out Date: 07/24 Tissu e Sourc e: 1: THINP REP NETWORK DEVELOPER PAP TEST, CERVI ZULEMA: Final Diagn osis: [...] rep Imagi ng Syste m with katt garcia or danilo valadez. Perfo rmed at [facility] ate Refer ence Labor atory depar tment of Cytol ogy, [address] [place] Clini zulema Histo ry (othe r): Z01.4 19, routi ne scree n, LPS neg Phone #: [phone], On-Ca ll Patho logis t: [id number] Not Available [facility] (Centralized Electronic Ordering - All Locations) Patient Can Go To The Location Of Their Choice, [address] 07/24/2023 13:28:43 05/04/20 25 05/06/2025 IGP, RFX APTIM A HPV ASCU diagnosis: Commen t NEGAT ANDREA FOR INTRA EPITH ELIAL LESIO N OR MALIG EVELYNE . Not Available [facility] ([facility]) [address] [place], [address], 05/06/2025 10:16:06 05/04/20 25 05/06/2025 IGP, RFX APTIM A HPV ASCU specimen adequacy: Violeta t Satis facto ry for evalu ation . No endoc ervic al compo nent is ident ified . Not Available [facility] ([facility]) [address] [place], [address], 05/06/2025 10:16:06 05/04/20 25 05/06/2025 IGP, RFX APTIM A HPV ASCU clinician provided ICD10: Violeta nieto Z01.4 19 Not Available [facility] ([facility]) [address] [place], [address], 05/06/2025 10:16:06 05/04/20 25 05/06/2025 IGP, RFX APTIM A HPV ASCU performed by: Violeta Obrien, Cytol ogist (ASCP ) Not Available [facility] ([facility]) [address] [place], [address], 05/06/2025 10:16:06 05/04/20 25 05/06/2025 IGP, RFX APTIM A HPV ASCU . . Not Available [facility] ([facility]) [address] [place], [address], 05/06/2025 10:16:06 05/04/20 25 05/06/2025 IGP, RFX APTIM A HPV ASCU note: Violeta t The Pap smear is a scree francis [...] ts do occur . Not Available [facility] ([facility]) [address] [facility], [place], [address], 05/06/2025 10:16:06 05/04/20 25 05/06/2025 IGP, RFX APTIM A HPV ASCU test methodology: Commen t This liqui d based ThinP rep(R ) pap test was danitza keyes with the use of an image guide guille boone. Not Available [facility] ([facility]) [address] [facility], [place], [address], 05/06/2025 10:16:06 05/04/20 25 05/06/2025 IGP, RFX APTIM A HPV ASCU . Commen t The HPV DNA refle x crite maury were not met with this speci men resul t there fore, no HPV testi ng was perfo rmed. Not Available [facility] ([facility]) [address] [facility], [place], [address], 05/06/2025 10:16:06 07/11/20 23 07/11/2023 MAMMO , scree francis, digit al, bilat eral No observ ation record ed. [facility] [address], [place], [address], 07/12/2023 07:58:51 08/17/20 25 08/17/2025 MAMMO , scree francis, digit al, bilat eral No observ ation record ed. [email or web address] [facility] Orders [address], [place], [address], 08/17/2025 15:48:46 Result Notes None recorded. Problems Name Problem SNOMED Code Status Onset Date Resolution Date Notes Provider Name and Address Organization Details Recorded Time Hypothyroi dism 07331979 Active 2015 Myriam oneal [place] - [facility], 6 14:14:45 Dysfunctio nal uterine bleeding Active 2015 Dixie Payne MD [address], [place], [address], [place] - [facility], 6 14:59:08 Perimenopa usal disorder 204451151 Active 2015 Dixie Payne MD [address], [place], [address], [place] [facility], 6 14:59:15 No consent - influenza immunizati on 714377986 Active 2019 she identifies as an anti-vaxx er although her children are vaccinated for all but influenza. Dixie Payne MD [address], [place], [address], [place] - [facility], 0 15:11:01 Screening for malignant neoplasm of rectum Active 2021 Dixie Payne MD [address], [place], [address], [place] - [facility], 2 11:50:55 Menopausal syndrome 946177138 Active 2023 Dixie Payne MD [address], [place], [address], [place] - [facility], 4 12:28:03 Alcohol dependence 10258409 Active 2023 Dixie Payne MD [address], [place], [address], [place] - [facility], 4 12:50:32 Problem Notes None recorded. Procedures Surgical History Date Name Laterality Status Provider Name and Address Organization Details Recorded Time 4 Most Recent Mammogram completed Chayo Mcbride [place] - [facility], 05/04/2025 13:49:06 4 Tubal Ligation completed Myriam Mendoza [place] - Associdewey loza in [facility], 08/21/2016 14:21:23 6 Other completed Myriam Mendoza [place] - [facility], 08/21/2016 14:22:41 9 Breast Implants completed Dixie Payne MD [address] [facility],[address], [place], [address], [place] - [facility], 09/19/2020 15:07:02 Imaging Results None recorded. [...] completed Not Available Not Available Not Available Siler Thyroid 60 mg tablet 08/21 completed Not [...] completed Not Available Not Available Not Available Siler Thyroid 90 mg tablet 08/21 completed Not [...] completed Not Available Not Available Not Available Siler Thyroid 15 mg tablet 08/21 completed Not [...] completed Not Available Not Available Not Available June FE 11/02 (28) 1 mg-20 mcg (21)/75 [...] completed Not Available Not Available Not Available FOOD SERVICE AGENT Thyroid 120 mg tablet 07/09 completed Not Available Not Available Not Available Vitals Date Recorded Body height Provider Name an d Address Organization Details Last Updated DateTime 02/06/2024 156.21 cm Chayo Molina in [facility], 02/06/2024 10:27:35 Date Recorded Body weight Body mass index (BMI) Body height Heart rate Systolic And Diastolic Provider Name and Address Organization Details Last Updated DateTime 05/04/2025 84792.1 g 26.9 kg/m2 156.21 cm 75 /min 150/77 mm[Hg] Chayo Fermin in [facility], 05/04/2025 13:45:21 Date Recorded Body weight Body mass index (BMI) Body height Heart rate Systolic And Diastolic Provider Name and Address Organization Details Last Updated DateTime 06/27/2022 56422.64 g 23.4 kg/m2 156.21 cm 79 /min 147/68 mm[Hg] Katherine Fermin in [facility], 06/27/2022 11:27:34 Date Recorded Body height Body mass index (BMI) Body weight Heart rate Systolic And Diastolic Provider Name and Address Organization Details Last Updated DateTime 07/12/2025 156.21 cm 25.5 kg/m2 49031.59 g 67 /min 128/74 mm[Hg] Chyao Fermin in [facility], 07/12/2025 14:01:22 Date Recorded Body weight Body mass index (BMI) Body height Heart rate Systolic And Diastolic Provider Name and Address Organization Details Last Updated DateTime 07/18/2023 27878.34 g 25.8 kg/m2 156.21 cm 67 /min 123/74 mm[Hg] Katherine Fermin in [facility], 07/18/2023 12:55:44 Social History Question Answer Notes LastModified by Organizat ion Details LastModified Time Tobacco Smoking Status Never Smoker RADHA Mancilla in [facility], 08/21/2016 14:16:27 What Is Your Level [...] not available 08/21/2016 Who Is Your Employer? [employer] Information not available 06/27/2022 How Many Days [...] ) Traveled To Or Lived In A [facility]-affected Area? 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 Never used electronic cigarettes Information not available 07/09/2019 What is your exercise level? Moderate Information not available 02/11/2018 Mental Status Question Answer Note LastModified by Organization D etails LastModified Time Do you feel stressed (tense, restless, nervous, or anxious, or unable to sleep at night)? [id number] Information not available 06/27/2022 Family History Relationship Description Onset Age of this Age Resolved Age Notes LastModified by Organization Details LastModified Time Father Disease of liver [email or web address] Not available 2015 14:15:43 Father Diabetes mellitus [email or web address] Not available 2015 14:16:03 Medical History Condition Response Anesthesia complications N High Blood Pressure N Candidate for MyRisk panel N Autoimmune Condition N Kidney or Bladder Problems N Thyroid Problems Y Depression Y Lung Disease N GI Problems Y Defects or Inherited Disease N Anemia N History of Ovarian Cancer N History of Breast Cancer N STONE [...] ICD10 Code Diagnosis IMO Codes Diagnosis Note [id number] MD DIXIE Pierce MD [address] [place] [address],[address] [place] [address] 08/21/2016 13:48:12 08/21/2016 16:06:00 Dysfunctional uterine bleeding 15074238 N93.8 Perimenopa usal disorder 113681211 N95.9 [id number] MD DIXIE Pierce MD [address] [place] [address], [address] [place] [address] 01/11/2017 10:10:53 01/11/2017 13:35:44 Specialized medical examination 67727900 Z01.419 Screening for malignant neoplasm of rectum 410756201 Z12.12 Screening mammography 24 965513 Z12.31 [id number] MD DIXIE Pierce MD [address] [place] [address], [address] [place] [address] 02/11/2018 14:33:25 02/13/2018 08:31:41 Specialized medical examination 87841775 Z01.419 Screening for malignant neoplasm of rectum 647300381 Z12.12 Screening mammography 24 604704 Z12.31 Amenorrhea 28695467 N91. 2 [id number] MD DIXIE Pierce MD [address] [place] [address],[address] [place] [address] 07/09/2019 14:38:46 07/09/2019 16:05:22 Specialized medical examination 85494331 Z01.419 Screening mammography 24 909187 Z12.31 66611 MD DIXIE Pierce MD [address] [place] [address], [address] [place] [address] 01/19/2020 13:54:32 01/19/2020 14:31:30 Vulvitis 76190835 N76.2 B96.89 Candidal vulvovaginitis 83746299 B37.3 87481 MD DIXIE Pierce MD [address] [place], [place] [address] [place] [address] 09/19/2020 14:40:59 09/19/2020 16:04:33 Specialized medical examination 81221710 Z01.419 Screening mammography 24 596214 Z12.31 [id number] MD DIXIE Pierce MD [address] [place] [address] [place] [address] 06/27/2022 11:24:47 06/27/2022 11:56:24 Specialized medical examination 82269801 Z01.419 Screening mammography 24 438244 Z12.31 [id number] MD DIXIE Pierce MD [address] [place] [address] [place] [address] 07/18/2023 12:49:27 07/19/2023 13:16:30 Specialized medical examination 54192106 Z01.419 Screening for malignant neoplasm of rectum 079597738 Z12.12 Screening mammography 24 570060 Z12.31 [id number] MD DIXIE Pierce MD [address] [place], [place] [address] [address] 02/06/2024 10:13:45 02/06/2024 14:20:40 Menopausal syndrome 908243433 N95.9 Alcohol dependence 54235 003 F10.20 [id number] MD DIXIE Pierce MD [address] [place] [address] [place] [address] 05/04/2025 13:40:12 05/04/2025 14:52:05 Specialized medical examination 75751771 Z01.419 Screening for malignant neoplasm of rectum 724997016 Z12.12 Screening mammography 24 431794 Z12.31 [id number] MD DIXIE Pierce MD [address] [place], [place] [address] [address] 07/12/2025 13:57:42 07/12/2025 15:22:11 Menopausal syndrome 743060168 N95.9 Health Concerns Section Related Observation LastModified by Organization Detai ls LastModified Time None Recorded Concern Status LastModified by Organization Details LastModified Time None Recorded Advance Directives Directive None Recorded Payers Insurance Date Sequence Insurance Name Policy Number Policy Arora Covered Member ID Arora Member ID Guarantor Name 07/09/2025 1 [employer] [id number] Teo Swanson [id number] Dulce Kiki 07/19/2023 1 [employer] PLAN (HMO) [id number] Teo Swanson [id number] Dulce Kiki 02/11/2018 1 [facility] (INDEMNITY) [id number] Teo Swanson [id number] Dulce Sungnahan Notes Date Note Type Note Provider Name [...] since 2018. Declines all vaccinations. Note from 2020: She is here for [...] out, and why. Dixie Payne MD [address] [facility],[address], [place], [address], [place] [facility], 06/27/2022 [...] 2018.Declines all vaccinations. Dixie Payne MD [address] [facility],[address], [place], [address], [place] - [facility], 07/18/2023 13:08:54 02/06/2024 text/html This visit is a phone telehealth visit. The patient consented to the visit by phone.The patient was at home at the time of the call and the provider and patient were the only people on the line.I was at [address] [facility], [address], [facility] [place], at the time of the call. She [...] 2018.Declines all vaccinations. Dixie Payne MD [address] [facility],[address], [place], [address], [place] [facility], 02/06/2024 12:53:19 05/04/2025 text/html She is here [...] since 2018.Declines all vaccinations. Dixie Payne MD [address] [place] [address],[address], [place], [address], [place] [facility], 05/04/2025 14:11:28 07/12/2025 text/html She is here [...] 06/2023 was fine. Dixie Payne MD [address] [facility],[address], [place], [address], [place] [facility], 07/12/2025 14:57:40 OBGyn Episode No OBEpisode recorded.
--- OUTSIDE RECORDS SUMMARY | 2025-09-28 17:30 | XMS_ITS | Patient Health Record ---
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 Problems Problem Type SNOMED Code ICD Code Onset Dates Problem Status W/U Status Risk Notes Problem Constipation (95010311) Constipation (564.00) Active confirmed Plan Of Treatment Future Test Test Name Order Date COLONOSCOPY 01/06/2014 Insurance Providers Payer Name Payer Address Payer Phone Subscriber Number Group Number Insured Name Patient Relationship to Insured Coverage Start Date Coverage End Date [employer] INDEMNITY [address] [place] [address] [id number] FREIDA SHARPE Self - patient is the insured Medical (General) History Medical History History ICD Code hypothyroidism Surgical History Surgery Date(Month/Year) breast augmentation thyroid
--- OUTSIDE RECORDS SUMMARY | 2025-09-28 17:30 | XMS_ITS | Continuity of Care Document ---
Author Organization [place] [facility],, DIXIE HARRISON MD Address [address] [address] Care Team Providers Care Market Development Specialist Name Role Phone JOSEF ERVIN Primary Care Provider [phone] Assessment No assessment recorded. Plan of Treatment Reminders Order Date Submit Date Provider Last Modified By Organization Details Last Modified Time Details Appointments None recorded. Lab None recorded. Referral None recorded. Procedures None recorded. Surgeries None recorded. Imaging None recorded. Medication Orders estradiol 1 mg tablet 2024 025 [facility], [address] [place], [address], 14:39:50 progesteron e micronized 200 mg capsule 2024 025 [facility], [address] [place], [address], 14:39:49 Patient TargetsNo targets recorded. Patient Instructions Encounter Date Encounter Id Patient Instructions Last Modified By Organization Details Last Modified Time 07/12/2025 [id number] She is here to discuss her continued vasomotor symptoms. She has hot flashes, night sweats, insomnia for which she takes lorazepam. She had anxiety and a panic attack that took her to the ED. She has been trying to not take HRT but now feels this may be what she needs. No menses since 2016. Symptoms have bene ongoing since then. ___ [...] Abnormal Flag Note LastModifiedBy Organization Detail LastModifiedTime 08/17/20 25 08/17/2025 MAMMO , eveliae francis, digit al, bilat eral No observ ation record ed. [email or web address] Orders [address] [facility] [address], [place], [address], 08/17/2025 15:48:46 Result Notes None recorded. Problems Name Problem SNOMED Code Status Onset Date Resolution Date Notes Provider Name and Address Organization Details Recorded Time Hypothyroi dism 21950583 Active 2015 Myriam oneal [place] - [facility], 6 14:14:45 Dysfunctio nal uterine bleeding Active 2015 Dixie Harrison MD [address] [facility], [address], [place], [address] [place] - [facility], 6 14:59:08 Perimenopa usal disorder 607233644 Active 2015 Dixie Harrison MD [address], [place], [address], [place] - [facility], 6 14:59:15 No consent - influenza immunizati on 441910485 Active 2019 she identifies as an anti-vaxx er although her children are vaccinated for all but influenza. Dixie Harrison MD [address], [place], [address], [place] [facility], 0 15:11:01 Screening for malignant neoplasm of rectum Active 2021 Dixie Harrison MD [address], [place], [address], [place] [facility], 2 11:50:55 Menopausal syndrome 766991064 Active 2023 Dixie Harrison MD [address], [place], [address], [place] [facility], 4 12:28:03 Alcohol dependence 51310404 Active 2023 Dixie Harrison MD [address], [place], [address], [place] [facility], 4 12:50:32 Problem Notes None recorded. Procedures Surgical History Date Name Laterality Status Provider Name and Address Organization Details Recorded Time 4 Most Recent Mammogram completed Chayo Mcbride [place] - [facility] in [facility], 05/04/2025 13:49:06 4 Tubal Ligation completed Myriam loza in [facility], 08/21/2016 14:21:23 6 Other completed Myriam Mendoza [place] - s in [facility], 08/21/2016 14:22:41 9 Breast Implants completed Dixie Harrison MD [address] [facility],[address], [place], [address], [place] [facility], [...] completed Not Available Not Available Not Available [place] Thyroid 60 mg tablet 08/21 completed Not [...] completed Not Available Not Available Not Available [place] Thyroid 90 mg tablet 08/21 completed Not [...] completed Not Available Not Available Not Available [place] Thyroid 15 mg tablet 08/21 completed Not [...] completed Not Available Not Available Not Available [facility] Thyroid 120 mg tablet 07/09 completed Not Available Not Available Not Available Vitals Date Recorded Body height Body mass index (BMI) Body weight Heart rate Systolic And Diastolic Provider Name and Address Organization Details Last Updated DateTime 07/12/2025 156.21 cm 25.5 kg/m2 45976.59 g 67 /min 128/74 mm[Hg] Chayo Fermin in [facility], 07/12/2025 14:01:22 Social History Question Answer Notes LastModified by Organizat ion Details LastModified Time Tobacco Smoking Status Never Smoker Myriam [place] Gan in [facility], 08/21/2016 14:16:27 What Is Your Level [...] not available 08/21/2016 Who Is Your Employer? 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 Never used electronic cigarettes Information not available 07/09/2019 What is your exercise level? Moderate Information not available 02/11/2018 Mental Status Question Answer Note LastModified by Organization D etails LastModified Time Do you feel stressed (tense, restless, nervous, or anxious, or unable to sleep at night)? [id number] Information not available 06/27/2022 Family History Relationship [...] Depression Y Defects or Inherited Disease N Anemia [...] ICD10 Code Diagnosis IMO Codes Diagnosis Note [id number] MD DIXIE Pierce MD [address] [facility] [address] [place] [address] 07/12/2025 13:57:42 07/12/2025 15:22:11 Menopausal syndrome 127225832 N95.9 Health Concerns Section Related Observation LastModified by Organization Detai ls LastModified Time None Recorded Concern Status LastModified by Organization Details LastModified Time None Recorded Payers Encounter Date Sequence Insurance Name Policy Number Policy Arora Covered Member ID Arora Member ID Guarantor Name 07/12/2025 1 [facility] - [employer] [id number] Teo Kiki [id number] Dulce Kiki Notes Date Note Type Note Provider Name and Address Organization Details Recorded Time 07/12/2025 text/html She is here to discuss [...] brain fog. Mammo 06/2023 was fine. Dixie Harrison MD [address] [place] [address],[address], [place], [address], [place] [facility], 07/12/2025 14:57:40 OBGyn Episode No OBEpisode recorded.
== END 2025-09-28 15:12 | disposition home or self-care (01) ==
LOC: HO.HGI 13:26
PROVIDERS: PCP Internal Medicine; Visit Provider Nurse Practitioner
DX: K59.04 Chronic idiopathic constipation (principal); R74.01 Elevation of levels of liver transaminase levels; R79.89 Other specified abnormal findings of blood chemistry; R17 Unspecified jaundice; R10.84 Generalized abdominal pain; R63.4 Abnormal weight loss
CPT/HCPCS: 99214

== ENCOUNTER 2025-10-11 11:14 | Outpatient (REF) | payer OTHER, SELFPAY ==
--- OUTSIDE RECORDS SUMMARY | 2025-10-11 13:10 | XMS_ITS | Patient Health Record ---
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 Problems Problem Type SNOMED Code ICD Code Onset Dates Problem Status W/U Status Risk Notes Problem Constipation (95901479) Constipation (564.00) Active confirmed Plan Of Treatment Future Test Test Name Order Date COLONOSCOPY 01/06/2014 Insurance Providers Payer Name Payer Address Payer Phone Subscriber Number Group Number Insured Name Patient Relationship to Insured Coverage Start Date Coverage End Date [employer] [address] [place] [address] [id number] FREIDA SHARPE Self - patient is the insured Medical (General) History Medical History History ICD Code hypothyroidism Surgical History Surgery Date(Month/Year) breast augmentation thyroid
[2025-10-11 14:58] LABS: Alanine Aminotransferase 45 U/L (0-31); Albumin Level 4.7 g/dL (3.5-5.0); Alkaline Phosphatase 90 U/L (39-117); Anion Gap 11 (12-20); Aspartate Amino Transferase 39 U/L (5-31); Blood Urea Nitrogen 10 mg/dL (9-16); Calcium 9.7 mg/dL (8.4-10.2); Carbon Dioxide 26 mmol/L (22-29); Chloride 107 mmol/L (96-108); Estimated Glomerular Filt Rate > 60; Ferritin 221 ng/mL (10-250); Lipase 31 U/L (8-78); Potassium 3.5 mmol/L (3.3-5.1); Sodium 140 mmol/L (135-145); Thyroid Stimulating Hormone 1.14 uIU/mL (0.32-4.0); Total Protein 7.8 g/dL (6.5-8.0)
[2025-10-11 14:59] LABS: Free T4 (Free Thyroxine) 1.28 ng/dL (0.71-1.85)
[2025-10-12 08:03] LABS: HBS Num1 3.12 mIU/mL (0-7.99); HBc Num1 0.09 S/CO (0.00-0.79); HBsAGNum1 0.35 S/CO (0.00-0.99); HIV Num 1 0.08 S/CO (0.00-0.99); Hepatitis A Antibody IgM 0.20 Index (0-0.79); Hepatitis B Surface Antigen Negative (Negative); ~HepC Num1 0.08 S/CO (0.00-0.79); ~Hepatitis A Antibody IgM Nonreactive (Nonreactive); ~Hepatitis B Surface Antibody NONREACTIVE (Nonreactive); ~Hepatitis C Antibody Nonreactive (Nonreactive)
[2025-10-12 14:49] LABS: Transglutaminase Ab IgG <1.0 U/mL
== END 2025-10-11 11:15 | disposition home or self-care (01) ==
LOC: HO.HMGCLDS 11:14
PROVIDERS: PCP Internal Medicine; Visit Provider Nurse Practitioner
DX: K59.04 Chronic idiopathic constipation (principal); R79.89 Other specified abnormal findings of blood chemistry; R74.01 Elevation of levels of liver transaminase levels; R17 Unspecified jaundice; E03.9 Hypothyroidism, unspecified; Z01.84 Encounter for antibody response examination; Z11.4 Encounter for screening for human immunodeficiency virus [HIV]
CPT/HCPCS: 36415; 80053; 81596; 82105; 82248; 82728; 83036; 83690; 84439; 84443; 84481; 86015; 86364; 86381; 86704; 86706; 86709; 86803; 87340; 87389